=== PATIENT | male | born 1945 | race Caucasian/White ===

== ENCOUNTER 2017-07-27 09:06 | Emergency (ER) | payer OTHER ==
--- OUTSIDE RECORDS SUMMARY | 2017-07-27 09:08 | XMS REPORT ---
:1945 [facility] Address [address] [place] [address] [address] [place] [address] Care Team Providers Name Role Phone ANDI LIZAMA Unavailable Unavailable Problems This patient has no known problems. Allergies, Adverse Reactions, Alerts This patient has no known allergies or adverse reactions. Medications This patient has no known medications. Results Test Description Test Time Test Comments Text Results Atomic Results Result Comments TISSUE EXAM 2016-09-08 18:11:00 Test Item Value Reference Range Comments LAB AP CPT CODE (BEAKER) (test kepr=0944) [id number] 11:20:00 Test Item Value Reference Range Comments HEMOGLOBIN (BEAKER) (test nxdf=795) 15.2 GM/DL 13.0-16.8 [id number] 11:16:00 Test Item Value Reference Range Comments SODIUM (BEAKER) (test vutn=144) 139 meq/L 136-145 POTASSIUM (BEAKER) (test vhom=150) 4.3 meq/L 3.5-5.1 CHLORIDE (BEAKER) (test bfav=208) 108 meq/L 98-107 CO2 (BEAKER) (test grhr=231) 23 meq/L 22-29 [id number] 11:16:00 Test Item Value Reference Range Comments GLUCOSE RANDOM (BEAKER) (test kqyo=609) 89 mg/dL 70-105 Effective 03/17/2014: Reference Range Change-Adult onlyNew: 70-105 Previous : 70-110BUN AND [id number] 11:16:00 Test Item Value Reference Range Comments BLOOD UREA NITROGEN 16 mg/dL 7-21 (BEAKER) (test ehjw=013) CREATININE (BEAKER) (test 1.20 mg/dL 0.57-1.25 ocgz=153) EGFR (BEAKER) (test 60 mL/min/1.73 sq m ESTIMATED GFR IS NOT gjdl=2407) ACCURATE CREATININE CLEARANCE IN PREDICTING GLOMERULAR FILTRATION RATE. ESTIMATED GFR IS NOT APPLICABLE FOR DIALYSIS PATIENTS.
--- OUTSIDE RECORDS SUMMARY | 2017-07-27 09:08 | XMS REPORT | Clinical Summary ---
:1945 Author Organization [facility] Address [address] [place] [address] Phone Care Team Providers Name Role Phone Unavailable Primary Care Provider Unavailable Allergies Active Allergy Reactions Severity Noted Date Comments Erythromycin Other (See Comments) 05/21/2014 Stomach cramps Current Medications Prescription Sig. Disp. Refills Start Date End Date Status aspirin 81 MG EC Take 81 mg by Active tablet mouth daily. mometasone (NASONEX) 2 sprays by Active 50 mcg/actuation Nasal route nasal spray daily. glucosamine-chondroit Take 2 tablets Active in 500-400 mg tablet by mouth daily . fexofenadine Take 180 mg by Active (GRACIE) 180 MG mouth daily. tablet prasugrel (EFFIENT) Take 10 mg by Active 10 mg Tab tablet mouth every other day. atorvastatin Take 40 mg by Active (LIPITOR) 40 MG mouth daily. tablet omeprazole (PRILOSEC) Take 20 mg by Active 20 MG capsule mouth daily. B-complex with Take 2 tablets Active vitamin C tablet by mouth daily. cholecalciferol, Take 5,000 Units Active vitamin D3, 5,000 by mouth daily. unit Tab HYDROcodone-acetamino Take 1-2 tablets 30 tablet 0 09/06/2016 09/16/2016 phen (NORCO 5-325) by mouth every 4 5-325 mg per tablet (four) hours as needed for Pain for up to 10 days. Max Daily Amount: 12 tablets Active Problems Problem Noted Date Ganglion cyst of foot 09/06/2016 Ganglion cyst of right foot 09/06/2016 Biceps tendonitis 10/28/2015 Rotator cuff tear, right 10/28/2015 Encounters Date Type Specialty Care Team Description 09/06/2016 Hospital Encounter Usman Cain Ganglion cyst of [place] right foot (Primary Dx) 09/06/2016 Surgery Usman Cain BIOPSY/EXCISION,DUSTIN Goff MD TISSUE EXTREMITY LOWER 09/05/2016 Anesthesia Event Dana Rivas MD 09/05/2016 Orders Only Usman Cain MD 07/28/2016 Hospital Encounter Pre-Admission Usman Cain Biceps tendonitis , Testing [place] unspecified laterality 07/28/2016 Orders Only General Internal Medicine after 07/26/2016 Social History Tobacco Use Types Packs/Day Years Used Date Never Smoker Smokeless Tobacco: Never Used Alcohol Use Drinks/Week oz/Week Comments No Sex Assigned at Date Recorded Not on file Last Filed Vital Signs Vital Sign Reading Time Taken Blood Pressure 149/76 09/06/2016 3:20 PM CDT Pulse 58 09/06/2016 3:20 PM CDT Temperature 36.7 C (98.1 F) 09/06/2016 3:20 PM CDT Respiratory Rate 30 09/06/2016 3:20 PM CDT Oxygen Saturation 96% 09/06/2016 3:20 PM CDT Inhaled Oxygen Concentration - - Weight 96.8 kg (213 lb 6.4 oz) 09/06/2016 9:10 AM CDT Height 179.1 cm (5' 10.5") 09/06/2016 9:10 AM CDT Body Mass Index 30.19 09/06/2016 9:10 AM CDT Plan of Treatment Not on file Implants Implanted Type Area Seed Cleaning Manager Device Expiration Model / Identifier Date Serial / Lot Sut Biocomp Swvlck 4.75x19.1mm [id number] - [id number] [place]/ Right: ARTHREX 07/28/2017 [id number] / Implanted: Qty: 1 on 10/28/2015 by Sebas Son MD Arthros Shoulder / copy [id number] [place] Healix [id number] [id number] - [id number] [place]/ Right: J 07/28/2018 [id number] / Implanted: Qty: 2 on 10/28/2015 by Sebas Son MD Arthros Shoulder &J:ETHICON: / copy MITEK PRDT [id number] Healix Advance [place] Right: DEPUY MITEK 02/27/2018 / Implanted: Qty: 1 on 10/28/2015 by Sebas Son MD Shoulder / [id number] Snapshot Fixation System Right: [employer] 10/07/2020 / Implanted: Qty: 1 on 10/28/2015 by Sebas Son MD [facility] / [id number] Rotation Medical Tendon Nathaniel Right: 08/29/2016 / Implanted: Qty: 1 on 10/28/2015 by Sebas Son MD Shoulder / [id number] Rotation Medical Bone Staple Drivers With Nathaniel Kit 08/05/2016 / Implanted: Qty: 1 on 10/28/2015 by Sebas Son MD / [id number] Rotation Nedical Reconstituted Collagen Scaffold Medium Right: 2016 [id number] / Implanted: Qty: 1 on 10/28/2015 by Sebas Son MD Shoulder / Procedures Procedure Name Priority Date/Time Associated Diagnosis Comments BIOPSY/EXCISION,SOFT 09/06/2016 11:15 AM Ganglion cyst of foot TISSUE EXTREMITY LOWER CDT Case Notes Fantasma palma Special Needs (FOOT TRAY) after 07/26/2016 Results Tissue Exam (09/06/2016 1:11 PM) Component Value Ref Range Case Report Surgical Pathology Report Case: [id number] Authorizing Provider:Usman Cain MD Ordering Provider: Usman Cain MD Ordering Location: [facility] Collected: 09/06/2016 1311 SERVICES Pathologist: Peri Granados MDReceived: 09/06/2016 1627 Specimen:Ganglion Cyst, RIGHT FOOT GANGLION CYST DIAGNOSIS RIGHT FOOT, DORSAL, SOFT TISSUE, EXCISION OF LESION - GANGLION CYST Signing Pathologist Direct Phone Line: [phone] CPT Code(s) 85157 CLINICAL HISTORY Right dorsal foot ganglion cyst SPECIMEN SOURCE Right foot ganglion cyst GROSS DESCRIPTION The specimen is received in a formalin-filled container and labeled with the patient's information and labeled "right foot ganglion cyst" and consists of an intact cho-pink cyst measuring 3 x 1.5 x 1 cm. The surface is smooth, intact. The cyst is unilocular, filled with yellow thick material. Concrete Boom Pump Operator sections are submitted A1. CG/pl MICROSCOPIC DESCRIPTION The right foot sample shows a fibrous walled cyst with some intracystic myxoid/mucoid material, consistent with a ganglion cyst. Some surrounding muscle shows atrophic changes. There is no inflammation or atypia. Specimen Performing Laboratory Tissue - Ganglion Cyst [address] [address] ECG 12 lead (07/28/2016 10:20 AM) Specimen Performing Laboratory GE MUSE Narrative Ventricular Rate 57 BPM Atrial Rate 57 BPM P-R Interval 178 ms QRS Duration 100 ms Q-T Interval 444 ms QTC Calculation(Bazett) 432 ms P Lamont 13 degrees R Lamont 13 degrees T Lamont 30 degrees Sinus bradycardia Otherwise normal ECG No previous ECGs available Confirmed by MD MANCILLA JORGE ([id number]) on 07/28/2016 2:52:37 PM Procedure Note Interface, External Ris In - 07/28/2016 2:52 PM CDT Ventricular Rate 57 BPM Atrial Rate 57 BPM P-R Interval 178 ms QRS Duration 100 ms Q-T Interval 444 ms QTC Calculation(Bazett) 432 ms P Lamont 13 degrees R Lamont 13 degrees T Lamont 30 degrees Sinus bradycardia Otherwise normal ECG No previous ECGs available Confirmed by MD MANCILLA JORGE ([id number]) on 07/28/2016 2:52:37 PM BUN and Creatinine (07/28/2016 10:17 AM) Component Value Ref Range BUN 16 7 - 21 mg/dL Creatinine 1.20 0.57 - 1.25 mg/dL EGFR 60Comment: ESTIMATED GFR IS NOT ACCURATE mL/min/1.73 sq m CREATININE CLEARANCE IN PREDICTING GLOMERULAR FILTRATION RATE. ESTIMATED GFR IS NOT APPLICABLE FOR DIALYSIS PATIENTS. Specimen Performing Laboratory Blood [address] [address] Hemoglobin (07/28/2016 10:17 AM) Component Value Ref Range Hemoglobin 15.2 13.0 - 16.8 GM/DL Specimen Performing Laboratory Blood [facility] [address] Glucose (07/28/2016 10:17 AM) Component Value Ref Range Glucose 89 70 - 105 mg/dL Specimen Performing Laboratory Blood [address] [address] Narrative Effective 03/17/2014: Reference Range Change-Adult only New: 70-105 Previous: 70-110 Electrolytes (07/28/2016 10:17 AM) Component Value Ref Range Sodium 139 136 - 145 meq/L Potassium 4.3 3.5 - 5.1 meq/L Chloride 108 (H) 98 - 107 meq/L CO2 23 22 - 29 meq/L Specimen Performing Laboratory Blood [address] [address] after 07/26/2016
[2017-07-27 10:52] LABS: Urine Blood NEGATIVE (NEG); Urine Glucose NEGATIVE (NEG); Urine Protein NEGATIVE (NEG); Urine Specific Gravity 1.015 (1.005-1.030)
[2017-07-27 10:56] LABS: Absolute Lymphocytes (CBC) 1.5 K/uL (0.7-4.9); Absolute Monocytes 0.7 K/uL (0.1-1.3); Absolute Neutrophil 6.9 K/uL (1.8-8.0); Basophils % 0.6 % (0-1.3); Eosinophils % 0.7 % (0-4.4); Hematocrit 44.5 % (39.6-49.0); Lymphocytes % 15.9 % (15.3-44.8); MCH 30.2 pg (27.0-35.0); MCV 90.8 fL (80-100); MPV 8.9 fL (7.6-11.3); Monocytes % 7.6 % (3.3-12.3)
[2017-07-27 11:10] LABS: Potassium 3.6 mEq/L (3.6-5.0)
[2017-07-27 11:16] LABS: Albumin 3.9 g/dL (3.2-5.5); Bilirubin Direct 0.3 mg/dL (0-0.2); Bilirubin Total 1.5 mg/dL (0.3-1.2); Protein, Total 6.8 g/dL (6.0-8.3)
[2017-07-27 12:04] LABS: Urine Bacteria <20 /HPF (NONE SEEN); Urine Culture Reflex Order NOT NEEDED; Urine RBC <5 /HPF (NONE SEEN)
--- NOTE | 2017-07-27 12:04 | RAD REPORT ---
EXAM DESCRIPTION: CT - Abdomen Pelvis W Contrast - 07/27/2017 11:45 am CLINICAL HISTORY: Abdominal pain, diarrhea, prior prostatectomy COMPARISON: None. TECHNIQUE: Biphasic, helical CT imaging of the abdomen and pelvis was performed following 100 ml non -ionic IV contrast. Oral contrast was given. All CT scans are performed using dose optimization technique as appropriate and may include automated exposure control or mA/KV adjustment according to patient size. FINDINGS: No suspicious findings in the lung bases. The liver, spleen, and pancreas show no suspicious findings. Several small liver cysts are identified . These are not regarded as suspicious. Gallbladder and biliary tree are normal. Symmetric renal function is seen with no hydronephrosis or suspicious renal mass. Small right renal c yst is present. No urinary bladder abnormality seen. Prostate gland is absent. No mass, lymphadenopat hy or edema along the pelvic floor fatty tissues. No gastric dilatation or gastric wall thickening. No acute small bowel finding. No appendicitis. Prox imal sigmoid shows subtle wall thickening and a trace amount of stranding in the adjacent fat. Patien t has a mild diverticulosis pattern. Mid and distal sigmoid is redundant extending into the right low er quadrant. No free air, free fluid or pneumatosis. No other area of inflammatory stranding. No her lynn, mass or bulky lymphadenopathy. No adrenal abnormality. No suspicious bony findings. IMPRESSION: Suspected minimal colitis or diverticulitis in the proximal sigmoid colon left lower miguelina drant of the abdomen. No free air, abscess or other surgically emergent finding.
--- NOTE | 2017-07-27 12:28 | ER ---
Nurse's Notes [facility] Name: Myron Napoles Age: 71 yrs Sex: Male : 1945 Arrival Date: 07/27/2017 Time: 09:09 Bed 6 Private MD: Diagnosis: Abdominal and pelvic pain;Diverticulitis Presentation: 07/27 09:27 Presenting complaint: Patient states: soft stool and abd discomfort x "a few weeks", ss but is not getting much worse. Transition of care: patient was not received from another setting of care. Onset of symptoms is unknown. Care prior to arrival: None. 09:27 Method Of Arrival: Ambulatory ss 09:27 Acuity: DELL 3 ss Historical: - Allergies: : Erythromycin; ss - Immunization history:: Adult Immunizations up to date. - Social history:: Smoking status: Patient/guardian denies using tobacco. Screenin:16 Abuse screen: Denies threats or abuse. Nutritional screening: No deficits noted. la1 Tuberculosis screening: No symptoms or risk factors identified. Fall Risk None identified. Assessment: 10:15 General: Appears comfortable, well groomed, well developed, well nourished, Behavior is la1 calm, cooperative. Pain: Complains of pain in right lower quadrant and left lower quadrant. Neuro: Level of Consciousness is awake, alert, obeys commands, Oriented to person, place, time, situation. Cardiovascular: Capillary refill < 3 seconds Patient's skin is warm and dry. Respiratory: Airway is patent Respiratory effort is even, unlabored, Respiratory pattern is regular, symmetrical, Breath sounds are clear bilaterally. GI: Abdomen is round non-distended, Bowel sounds present X 4 quads. Abd is soft X 4 quads Abdomen is tender to palpation in left upper quadrant and left lower quadrant. : No signs and/or symptoms were reported regarding the genitourinary system. 11:55 Reassessment: Patient appears in no apparent distress at this time. No changes from la1 previously documented assessment. Patient and/or family updated on plan of care and expected duration. Pain level reassessed. Patient is alert, oriented x 3, equal unlabored respirations, skin warm/dry/pink. Vital Signs: 09:29 BP 151 / 83; Pulse 66; Resp 16; Temp 97.7(O); Pulse Ox 99% on R/A; Weight 95.25 kg; Height 5 ft. 10 in. (177.80 cm); Pain 6/10; 12:40 BP 145 / 74; Pulse 67; Resp 16; Temp 98.1; Pulse Ox 100% on R/A; la1 09:29 Body Mass Index 30.13 (95.25 kg, 177.80 cm) ED Course: 09:09 Patient arrived in ED. mr 09:29 Triage completed. 09:29 Arm band placed on right wrist. ss 10:08 César Julio MD is Attending Physician. kdr 10:12 Stephon Ibarra, BRII is Primary Nurse. la1 10:16 Placed in gown. Bed in low position. Call light in reach. la1 10:40 No provider procedures requiring assistance completed. Inserted saline lock: 20 gauge la1 in left antecubital area, using aseptic technique. Blood collected. 11:45 CT Abd/Pelvis - W/Contrast: IV ONLY In Process Unspecified. EDMS 12:40 IV discontinued, intact, bleeding controlled, No redness/swelling at site. Pressure la1 dressing applied. Administered Medications: 12:39 Drug: Flagyl 500 mg Route: PO; la1 12:39 Drug: Cipro 500 mg Route: PO; la1 Outcome: 12:27 Discharge ordered by . kdr 12:39 Discharged to home ambulatory. la1 12:39 Condition: stable 12:39 Discharge instructions given to patient, Instructed on discharge instructions, follow up and referral plans. medication usage, Demonstrated understanding of instructions, follow-up care, medications, Prescriptions given X 5 12:45 Patient left the ED. la1 Signatures: Dispatcher [employer] EDNM César Julio MD MD kdr Rivera, Maria Faina Tolentino, BRII TERESA Stephon Ibarra, BRII RN la1
--- NOTE | 2017-07-27 12:28 | EDPHYS ---
Physician Documentation [facility] Name: Myron Napoles Age: 71 yrs Sex: Male : 1945 Arrival Date: 07/27/2017 Time: 09:09 Bed 6 Private MD: ED Physician César Julio Historical: - Allergies: 07/27 09:29 Erythromycin; ss - Immunization history:: Adult Immunizations up to date. - Social history:: Smoking status: Patient/guardian denies using tobacco. Vital Signs: 09:29 BP 151 / 83; Pulse 66; Resp 16; Temp 97.7(O); Pulse Ox 99% on R/A; Weight 95.25 kg; ss Height 5 ft. 10 in. (177.80 cm); Pain 6/10; 12:40 BP 145 / 74; Pulse 67; Resp 16; Temp 98.1; Pulse Ox 100% on R/A; la1 09:29 Body Mass Index 30.13 (95.25 kg, 177.80 cm) ss MDM: 12:27 Patient medically screened. kdr 07/27 10:35 Order name: Amylase, Serum; Complete Time: 11:54 07/27 10:35 Order name: Basic Metabolic Panel; Complete Time: 11:54 07/27 10:35 Order name: CBC with Diff; Complete Time: 11:54 07/27 10:35 Order name: Creatinine for Radiology; Complete Time: 12:25 07/27 10:35 Order name: Hepatic Function; Complete Time: 11:54 07/27 10:35 Order name: Lipase; Complete Time: 11:54 07/27 10:35 Order name: Urine Microscopic Only; Complete Time: 12:25 07/27 10:35 Order name: IV Saline Lock; Complete Time: 10:36 la07/27 10:35 Order name: Labs collected and sent; Complete Time: 10:36 07/27 10:35 Order name: Urine Dipstick-Ancillary (obtain specimen); Complete Time: 10:54 07/27 10:35 Order name: CT Abd/Pelvis - W/Contrast: IV ONLY; Complete Time: 12:25 07/27 10:50 Order name: Urine Dipstick--Ancillary (enter results); Complete Time: 11:54 ag Administered Medications: 12:39 Drug: Flagyl 500 mg Route: PO; la1 12:39 Drug: Cipro 500 mg Route: PO; la1 Disposition: 07/27/17 12:27 Discharged to Home. Impression: Abdominal and pelvic pain, Diverticulitis. - Condition is Stable. - Discharge Instructions: Diverticulitis, [id number], Abdominal Pain, Adult, [id number]. - Prescriptions for Bentyl 20 mg Oral Tablet - take 1 tablet by ORAL route every 6 hours As needed; 20 tablet. Cipro 500 mg Oral Tablet - take 1 tablet by ORAL route every 12 hours for 10 days; 20 tablet. Flagyl 500 mg Oral Tablet - take 1 tablet by ORAL route every 6 hours for 10 days; 40 tablet. Pepcid 20 mg Oral Tablet - take 1 tablet by ORAL route every 12 hours for 5 days; 20 tablet. Zofran 4 mg Oral Tablet - take 1 tablet by ORAL route every 12 hours As needed; 15 tablet. - Medication Reconciliation Form, Thank You Letter, Antibiotic Education, Prescription Opioid Use form. - Follow up: Private Physician; When: 2 - 3 days; Reason: If symptoms return, Further diagnostic work-up, Recheck today's complaints, Continuance of care, Re-evaluation by your physician. - Problem is new. - Symptoms have improved. Addendum: 08/06/2017 09:42 Addendum: CC: Abdominal pain for a few weeks HPI: The patient states that he has had k dr persistent and slightly worsening abdominal pain for the past few weeks. He has not had any blood in his stool. He has had minimal nausea and no vomiting. He has not had anything like this before. . Addendum: ROS: Const: No fever, chills or weight loss Eyes: no visual changes or c/o, Neck: no pain or injury, CV: no CP or palpitations, Resp: no SOB, cough or congestion, Abd: no vomiting. He has had mild diffuse abdominal pain and soft stools Back: no pain or injury, : no pain or bleeding, MS/Ext: no pain, injury, swelling, tingling, Skin: no lacerations, pain, injury, skin turgor good, Neuro: CN grossly intact and no other deficits, Psych: Appropriate for age, Allergy/Immunology: no rashes or other s/s, Endo: no evidence of polyuria, polydipsia, temperature control or other s/s . Addendum: Exam: Const: WDWN WM in NAD, Head/Face: no injury, pain or deformity, Eyes: PERRLA, ENT: no pain, injury or bleeding, Neck: no pain, injury or deformity, full ROM, Chest/Axilla: No pain, injury or deformity, CV: no rubs, gallops, murmurs, regular rate, Resp: CTAB, regular rate, Abd/GI: soft, mildly tender diffusely, BS present in all quads and normal, Back: no injury or deformity, full ROM, MS/Extremity: no injury or deformity, FROM, distal pulses good and equal, Skin: no rashes, ecchymosis skin turgor good, Neuro: CN grossly intact, no other neuro deficits, Psych: appropriate for age, no SI/HI, no depression . Addendum: MDM (Discharge) All VS and nursing notes reviewed. The patient was counseled on the results and need for follow-up. The patient was discharged in stable condition. They were happy with the care they received and the plan for d/c and follow-up. . Signatures: Dispatcher [employer] EDMS César Julio MD MD [facility] Faina Tolentino RN RN Stephon Ibarra RN RN la1
[2017-07-27] MEDS ORDERED: CIPROFLOXACIN HCL 500 MG TAB ONE (12:51)
[2017-07-27] MEDS ORDERED: metroNIDAZOLE 500 MG TABLET ONE (12:51)
== END 2017-07-27 12:45 | disposition home or self-care (01) ==
LOC: ER 09:06
DX: K57.92 Diverticulitis of intestine, part unspecified, without perforation or abscess without bleeding (principal); Z88.3 Allergy status to other anti-infective agents
CPT/HCPCS: 36415; 74177; 80048; 80076; 82150; 83690; 85025; 99284; Q9967; 81003; 81015

== ENCOUNTER 2021-07-10 11:47 | Emergency (ER) | payer OTHER ==
--- OUTSIDE RECORDS SUMMARY | 2021-07-10 11:57 | XMS REPORT | Continuity of Care Document ---
:1945 [facility] t Address [address] [place] [address] Care Team Providers Name Role Phone Sammy, Walter Primary Care Physician ISMAEL KELLOGG Attending Clinician Unavailable GAMA CANO Attending Clinician Unavailable GMAA CANO Attending Clinician Unavailable Violette PATRICIO Attending Clinician Unavailable Nurse, Pob Immunization Attending Clinician Unavailable Dagoberto Sanz DO Attending Clinician Yun BRISENO Attending Clinician Unavailable OG LEE Attending Clinician Unavailable Vls-Lab Attending Clinician Unavailable Halina MEYERS Attending Clinician Robbin Redding MD Attending Clinician [phone] HALINA Attending Clinician Unavailable MENDOZA Attending Clinician Unavailable Mendoza MEYERS Attending Clinician Doctor Unassigned, Name Attending Clinician Unavailable Vania MEYERS Attending Clinician Flavio HERRERA Attending Clinician FLAVIO Attending Clinician Unavailable Tayler TERESA, A Attending Clinician Unavailable Singer WOODARD Attending Clinician Victorino WOODARD Attending Clinician Thom DURAN Attending Clinician Unavailable Charissa MEYERS, Violette Attending Clinician Elsie MEYERS, Brian Attending Clinician Gama Cano MD Attending Clinician CLIVE Attending Clinician Unavailable JAYE Attending Clinician Unavailable VANIA Attending Clinician Unavailable Ismael Kellogg MD Attending Clinician Kendall WINSTON Attending Clinician Garrick MEYERS Attending Clinician Nurse, General Surgery Attending Clinician Unavailable TERESSA SMITH Attending Clinician Unavailable ANDI LIZAMA Attending Clinician Unavailable ISMAEL KELLOGG Admitting Clinician Unavailable Victorino WOODARD Admitting Clinician Ismael Kellogg MD Admitting Clinician TERESSA SMITH Admitting Clinician Unavailable ANDI LIZAMA Admitting Clinician Unavailable Payers Payer Name Policy Type Policy Number Effective Date Expiration Date S aamir AET MEDICARE [id number] 2019 ADV 00:00:00 MEDICARE PLAN PPO [id number] - AET MEDICARE PART B - [id number] 2013 MEDICARE 00:00:00 AETNA MEDICARE [id number] 2013 HMO POS PPO 00:00:00 Problems Condition Condition Condition Status Onset Resolution Last Treating Co mments Source Name Details Category Date Date Treatment Clinician Date M16.12 - Diagnosis Active 2020-11-26 M emoria UNILATERAL 6-10 15:26:00 l PRIMARY M16.12 - 00:00: Chloe nn OSTEOARTHR UNILATERAL 00 IT PRIMARY OSTEOARTHR IT Active 1 [facility] Chest pain Chest pain Disease Active U nivers 4-05 ity of 00:00: [place] 00 Medical Branch Coronary Coronary Disease Active Unive rs artery artery 4-05 ity of disease disease 00:00: [place] involving involving 00 Medi [place] [facility] coronary coronary artery of artery of [place] heart heart without without angina angina pectoris pectoris Essential Essential Disease Active Uni vers hypertensi hypertensi 4-05 it y of on on 00:00: [place] 00 Medical Branch Other Other Disease Active Univers hyperlipid hyperlipid 4-05 it y of emia emia 00:00: [place] [facility] G89.4 - Diagnosis Active 2020-05-07 Me moria CHRONIC 1-05 15:25:00 l PAIN G89.4 - 00:01: [place] SYNDROME CHRONIC 00 M54.16 - R PAIN SYNDROME M54.16 - R Active 05/04/2020 [facility] [place] M54.16 - Diagnosis Active 2019-11-26 M emoria "RADICULOP 7- 12:17:00 l ATHY, M54.16 - 00:01: Enio n LUMBAR "RADICULOP 00 REGION" ATHY, LUMBAR REGION" Active 11/17/2019 [facility] [place] Ganglion Ganglion Disease Active [facility] r cyst of cyst of 3-13 College right foot right foot 00:00: of 00 Medicin e Other Other Disease Active [facility] testicular testicular 1-17 Co llege hypofuncti hypofuncti 00:00: of on on 00 Medicin e Trigger Trigger Disease Active [facility] finger of finger of 8-05 [facility] left thumb left thumb 00:00: of 00 Medicin e Rotator Rotator Disease Active [facility] cuff tear cuff tear 1-19 [facility] 00:00: of 00 Medicin e Rotator Rotator Disease Active [facility] cuff tear cuff tear 1-19 [facility] 00:00: of 00 Medicin e Cervical Cervical Disease Active [facility] r spine spine 8- College arthritis arthritis 00:00: of 00 Medicin e Thumb Thumb Disease Active [facility] weakness weakness 8- Colleg e 00:00: of 00 Medicin e Biceps Biceps Disease Active [facility] tendonitis tendonitis 8- Co llege 00:00: of 00 Medicin e Shoulder Shoulder Disease Active [facility] r pain pain 8-28 College 00:00: of 00 Medicin e Ganglion Ganglion Disease Active [facility] r cyst cyst 1-13 College 00:00: of 00 Medicin e Allergic Allergic Disease Active [facility] rhinitis, rhinitis, 7-03 [facility] cause cause 00:00: of unspecifie unspecifie 00 Me dicin d d e Epistaxis Epistaxis Disease Active [facility] 7-03 College 00:00: of 00 Medicin e Encounter Encounter Disease Active [facility] for for 6-14 College long-term long-term 00:00: of (current) (current) 00 Medi freda use of use of e other other medication medication s s Dermatophy Dermatophy Disease Active [facility] tosis of tosis of 09-27 Colleg e nail nail 00:00: of 00 Medicin e Personal Personal Disease Active 2011-04 [facility] history of history of -30 Co llege other other 00:00: of malignant malignant 00 Medi freda neoplasm neoplasm e of skin of skin 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 [facility] neoplasm neoplasm 05-21 Colleg e of skin of of skin of 00:00: of trunk, trunk, 00 Medicin except except e scrotum scrotum Actinic Actinic Disease Active 2010-04 [facility] keratosis keratosis 05-21 [facility] 00:00: of 00 Medicin e Prostate Prostate Disease Active 2010-04 [facility] r cancer cancer 0-07 [place] (HCCode) (HCCode) 00:00: of 00 Medicin e Erectile Erectile Disease Active 2010-04 [facility] dysfunctio dysfunctio 0-07 Co llege n n 00:00: of 00 Medicin e Erectile Erectile Disease Active 2010-04 [facility] r dysfunctio dysfunctio 0-07 Co llege n n 00:00: of 00 Medicin e Osteoarthr Problem Active 2020-11-10 M emoria itis 22:17:18 l (disorder) Enio n Osteoarthr itis (disorder) Active Problem 11/10/2020 [facility] Coronary Problem Active 2020-11-10 Mem oria arterioscl 22:17:18 l erosis Coronary Enio n (disorder) arterioscl erosis (disorder) Active Problem 11/10/2020 [facility] Hypertensi Problem Active 2020-11-10 M emoria ve 22:17:18 l disorder, Juve systemic Hypertensi arterial ve (disorder) disorder, systemic arterial (disorder) Active Problem 11/10/2020 [facility] Allergies, Adverse Reactions, Alerts Allergy Allergy Status Severity Reaction(s) Onset Inactive Treating Comm ents Source Name Type Date Date Clinician ERYTHROM Allergy Active Other [facility] Erythrom Propensi Active Other (See Stomach [facility] ycin ty to Comments) 05-21 [facility] adverse 00:00: of reaction 00 Medicin s to e drug Erythrom Propensi Active [facility] ycin ty to 11-19 [facility] Base adverse 00:00: of reaction 00 Medicin s to e drug Erythrom Propensi Active [facility] Univer s ycin ty to 11-19 ity of Base adverse 00:00: [place] reaction 00 Medical s Branch ERYTHROM DRUG Active [facility] YCIN INGREDI 11-19 ity of BASE 00:00: [place] 00 Medical Branch erythrom erythrom Active Memori a ycin ycin l [place] NO KNOWN Drug Active Univers ALLERGIE Class ity of [facility] Medical Branch Social History Social Habit Start Date Stop Date Quantity Comments Source History [facility] University o f Alcohol Comment [place] [facility] Exposure to Not sure University of SARS-CoV-2 [place] [facility] (event) Branch History [facility] ge of Alcohol Frequency Medicin e History [facility] ge of Alcohol Std Medicine Drinks History [facility] ge of Alcohol Binge Medicine Alcohol intake 2021-05-27 2021-05-27 Current drinker [facility] of 00:00:00 00:00:00 of alcohol Medicine (finding) Social History 2020-10-29 2020-10-29 [facility] flynn 16:31:09 16:31:09 Tobacco use and 2011-02-03 2011-02-03 Smokeless tobacco [facility] of exposure 00:00:00 00:00:00 non-user Medicine Sex Ass[birth year] [facility] llege of 00:00:00 00:00:00 Medicine Smoking Status Start Date Stop Date Source Unknown if ever smoked [facility] Medical [place] Never smoked tobacco [facility] of Medicine Medications Ordered Filled Start Stop Current Ordering Indication Dosage Frequency Signature Comments Components Source Medication Medication Date Date Medication? Clinician (SIG) Name Name solifenacin 2022-0 Yes 10mg Take 1 [facility] (VESICARE) 05-30 Tablet by [facility] 10 MG 00:00: mouth of tablet 00 daily. Medicin e CHONDROITIN Yes 1200mg Take 1,200 [facility] SULFATE OR 1-28 mg by College 09:40: mouth. of 17 Medicin e ramipril Yes 10mg Take 10 mg [facility] (ALTACE) 10 05-27 by mouth [facility] MG capsule 09:40: daily. of 17 Medicin e aspirin EC Yes 81mg Take 81 mg [facility] 81 MG 05-27 by mouth College tablet 09:40: daily. of 17 Medicin e omeprazole Yes 20mg Take 20 mg [facility] (PRILOSEC) 05-27 by mouth Colle ge 20 MG 09:40: daily. of capsule 17 Medicin e fexofenadin Yes as needed. [facility] e (GRACIE) 05-27 College 180 MG 09:40: of tablet 17 Medicin e fexofenadin 2021- No 180mg Take 180 [facility] e (GRACIE) 05-27 mg by Colleg e 180 MG 09:40: 00:00 mouth as of tablet 02 :00 needed for Medicin Other. e atorvastati 2021- No 40mg Take 40 mg [facility] n (LIPITOR) 05-27 by mouth. Co llege 40 MG 09:39: 00:00 of tablet 53 :00 Medicin e Aspirin 81 No Notes: Do Me moria MG Enteric 7-13 not crush l Coated 14:01: or chew. [place] Tablet 00 (Same As: Ecotrin) cefadroxil Yes 500 mg = 1 M emoria 500 mg oral 7-13 cap, PO, l capsule 14:00: BID, [place] 00 start medication on 11/09/20 eRx sent to pharmacy [id number] [address] [place] [address] Primary: TE: , X 2 day, # 4 cap, 0 Refill(s), called to pharmacy Aspirin 81 Yes 81 mg = 1 Me moria MG Enteric 7-13 tab, PO, l Coated 14:00: BID, Juve Tablet 00 start medication on 11/09/20 eRx sent to pharmacy [id number] [place] [address] Primary: TE: , # 60 tab, 0 Refill(s), called to pharmacy meloxicam Yes 15 mg = 1 Mem oria 15 mg oral 7-13 tab, PO, l tablet 14:00: Daily, Enio n 00 start medication on 11/09/20 eRx sent to pharmacy [id number] [place] [address] Primary: TE: , # 30 tab, 0 Refill(s), called to pharmacy meloxicam No Notes: Memori a 7-13 (Same as: l 14:00: Mobic) Ju[place] 00 Acetaminoph Yes 1 tab, PO, Memoria en 325 MG / 7-13 Q6H, PRN l Hydrocodone 02:00: Pain, [place] Bitartrate 00 start 10 MG Oral medication Tablet on 11/08/20 eRx sent to pharmacy [id number] [place] [address] [place] [address] Primary: TE: , # 30 tab, 0 Refill(s), called to pharmacy Ondansetron Yes 4 mg = 1 Me moria 4 MG 7-13 tab, PO, l Disintegrat 02:00: Q8H, PRN He rmann ing Tablet 00 Nausea & Vomiting, allow tablet to dissolve on tongue start medication on 11/08/20 eRx sent to pharmacy [facility][id number] [facility] [address] [place] [address] Primary: TE: , # 12 t... pregabalin Yes 75 mg = 1 Me moria 75 MG Oral 7-13 cap, PO, l Capsule 02:00: Bedtime, Enio n [Lyrica] 00 for nerve pain start medication on 11/08/20 eRx sent to pharmacy [facility] #[id number] [place] [address] Primary: TE: , # 30 cap, 0 Refill(s), called to pharmacy Mupirocin No 1 appl, Memor ia 7-13 Route: l 02:00: NASAL, Juve 00 Q12H, Drug form: OINT, Start date: 11/08/20 21:00:00 CDT, Duration: 30 day, Stop date: 12/08/20 9:00:00 CDT, 0 Docusate No Notes: Memoria Sodium 100 7-13 (Same as: l MG Oral 02:00: Colace) [place] Capsule 00 (Do Not [Colace] Crush) gabapentin No Notes: Memor ia 300 MG Oral 7-13 (Same as: l Capsule 02:00: Neurontin) Herm cynthia 00 Saline No Notes: Memoria Flush 0.9% - (Same as: l 02:00: BD Juve 00 Posiflush) Cefazolin No Notes: Memori a 7-12 (Same As: l 17:00: AncefBeverlyJuve 00 Kefzol) MEDICATION WASTE Product Size: 1000 mg Product Wasted: ___ mg ondansetron No Route: IV, Memoria (ANES) 11-08 Drug form: l 15:04: INJ, ONCE, Juve 00 Stop date: 11/08/20 10:04:00 CDT Lactated No 1,000 mL, Chet chance Ringers IV 11-08 Rate: 125 l 1,000 mL 14:23: ml/hr, Infuse over: 8 hr, Route: IV, Dosing Weight 84.091 kg, Total Volume: 1,000, Start date: 11/08/20 9:23:00 CDT, Duration: 30 day, Stop date: 12/08/20 9:22:00 CDT, BSA: 2.05 m2, 0 Acetaminoph No Notes: Do M emoria en 325 MG / - not exceed l Hydrocodone 14:23: 4gm/day of Bitartrate acetaminop 10 MG Oral hen. Tablet (Same as: [place] 325/10) Zofran ODT No Notes: Memor ia 7-12 (Same as: l 14:23: Zofran ODT) Dulcolax No Notes: Memoria Laxative 12 (Same As: l 14:23: Dulcolax, Correctol) (Do Not Crush) "Do Not Crush" Morphine No Notes: Memoria 7-12 (Same l 14:23: as:MORPhin e Sulfate) Periactin No Notes: Memori a 12 (Same As: l 14:23: Periactin) [place] 00 Tums No Notes: Memoria 12 (Same As: l 14:23: Tums) Calcium Carbonate 500 mg = 200 mg elemental calcium Dose = mg calcium carbonate ( mg elemental calcium) Saline No Notes: Memoria Flush 0.9% 11-08 (Same as: l 14:23: BD Posiflush) ePHEDrine No Route: IV, Me moria (ANES) 11-08 Drug form: l 13:51: INJ, ONCE, Stop date: 11/08/20 8:51:00 CDT famotidine No Route: IV, M emoria (ANES) 11-08 Drug form: l 13:51: INJ, ONCE, Stop date: 11/08/20 8:51:00 CDT lidocaine No Route: IV, Me moria (ANES) 11-08 Drug form: l 13:41: INJ, ONCE, Stop date: 11/08/20 8:41:00 CDT fentaNYL No Route: IV, Mem oria (ANES) 11-08 Drug form: l 13:41: INJ, ONCE, Stop date: 11/08/20 8:41:00 CDT propofol 2021-0 No Route: IV, Mem oria (ANES) 11-08 Drug form: l 13:41: INJ, ONCE, Stop date: 11/08/20 8:41:00 CDT tranexamic 0 No Route: IV, M emoria acid (ANES) 11-08 Drug form: l 13:41: INJ, ONCE, Stop date: 11/08/20 8:41:00 CDT bupivacaine 0 No Route: Chet chance (ANES) 11-08 INTRATHECA l 13:26: L, Drug Form: INJ, ONCE, Stop date: 11/08/20 8:26:00 CDT ceFAZolin No Route: IV, Me moria (ANES) 11-08 Drug form: l 13:21: INJ, ONCE, Stop date: 11/08/20 8:21:00 CDT Diphenhydra 2020-0 No 12.5 mg, Me moria mine 11-08 Route: l 13:18: IVP, Drug form: INJ, Q6H, Dosing Weight 84.091, kg, PRN Itching, Start date: 11/08/20 8:18:00 CDT, Duration: 30 day, Stop date: 12/08/20 8:17:00 CDT Racepinephr 2020-0 No 0.5 mL, Mem oria ine 11-08 Route: l 13:18: NEB, Dosing Weight 84.091, kg, PRN, PRN Shortness of breath, Start date: 11/08/20 8:18:00 CDT, Duration: 30 day, Stop date: 12/08/20 8:17:00 CDT Ondansetron 2020-0 No 4 mg, Memor ia 11-08 Route: l 13:18: IVP, ONCE, Dosing Weight 84.091, kg, PRN Nausea & Vomiting, Start date: 11/08/20 8:18:00 CDT Dexamethaso 2020-0 No 4 mg, Memor ia ne 11-08 Route: l 13:18: IVP, ONCE, Dosing Weight 84.091, kg, PRN Nausea & Vomiting, Start date: 11/08/20 8:18:00 CDT Sodium 2021-0 No 500 mL, Memoria Chloride 7-12 Infuse l 0.9% 13:18: Over: 20 [place] (Bolus) IV 00 minutes, Route: IV, ONCE, Dosing Weight 84.091 kg, Start date: 11/08/20 8:18:00 CDT, Stop date: 11/08/20 8:18:00 CDT Hydralazine 1-0 No 10 mg, Chet chance 11-08 Route: l 13:18: IVP, [place] 00 Q20Min, Dosing Weight 84.091, kg, PRN Elevated BP, Start date: 11/08/20 8:18:00 CDT, Duration: 2 doses or times, Stop date: Limited # of times Acetaminoph 1-0 No 1,000 mg, M emoria en 11-08 Route: PO, l 13:18: Drug form: Ju[place] 00 TAB, ONCE, Dosing Weight 84.091, kg, PRN Pain Score 1-3, Start date: 11/08/20 8:18:00 CDT Fentanyl 1-0 No 25 Memoria 7-12 microgram, l 13:18: Route: [place] 00 IVP, Q5Min, Dosing Weight 84.091, kg, PRN Pain Score 4-6, Priority: Routine, Start date: 11/08/20 8:18:00 CDT, Duration: 4 doses or times, Stop date: Limited # of times Flumazenil 2020-0 No 0.2 mg, Chet chance - Route: l 13:18: IVP, PRN, Juve 00 Dosing Weight 84.091, kg, PRN Benzodiaze pine Reversal, Initial dose, Start date: 11/08/20 8:18:00 CDT, Duration: 30 day, Stop date: 12/08/20 8:17:00 CDT Naloxone 2021-0 No 0.4 mg, Memori a 7- Route: l 13:18: IVP, [place] 00 Q2MIN, Dosing Weight 84.091, kg, PRN Narcotic Reversal, Start date: 11/08/20 8:18:00 CDT, Duration: 8 doses or times, Stop date: Limited # of times Albuterol 2021-0 No 2.49 mg, Chet chance 0.83 MG/ML 7-12 Route: l Inhalant 13:18: NEB, Juve Solution 00 Q20Min, Dosing Weight 84.091, kg, PRN Wheezing, Start date: 11/08/20 8:18:00 CDT, Duration: 30 day, Stop date: 12/08/20 8:17:00 CDT propofol No Route: IV, Mem oria (ANES) 10 11-08 Drug form: l mg 12:49: INJ, Start [place] date: 11/08/20 7:49:00 CDT, Stop date: 11/08/20 8:49:00 CDT Lactated No Route: IV, Mem oria Ringers 11-08 Total l Injection 12:44: Volume: Chloe nn IV (ANES) 00 1,000, 1000 mL Start date: 11/08/20 7:44:00 CDT, Stop date: 11/08/20 8:44:00 CDT ceFAZolin + No Notes: Chet chance sterile -12 (Same As: l water 20 mL 05:00: Ancef, Herm cynthia Kefzol) MEDICATION WASTE Product Size: 1000 mg Product Wasted: ___ mg Zofran ODT No Notes: Memor ia 7-12 (Same as: l 05:00: Zofran [place] 00 ODT) Celebrex No Notes: Memoria 7-12 NSAID. l 05:00: Please [place] 00 check indication . Not for seizure. (Same As: CeleBREX) Cyklokapron No Notes: Chet chance 7-12 (Same As: l 05:00: Cyklokapro [place] 00 n) Lyrica No Notes: Memoria 7-12 (Same as: l 05:00: Lyrica) [place] Acetaminoph No Notes: Max Memoria en 7-12 acetaminop l 05:00: hen 4000 Ju[place] 00 mg/day (4 gm/day). (Same as: Tylenol Extra Strength) Dexamethaso No Notes: Chet chance ne 7-12 Concentrat l 05:00: ion: 4mg/ml Famotidine No Notes: Memor ia 11-08 (Same as: l 05:00: Pepcid) Fish Oil Yes 1360 mg/ Memor ia oral 10-29 950mg l capsule 16:49: [place] 3, Enio n 00 PO, Daily, # 100 cap, 0 Refill(s) Vitamin B 2 Yes Vitamin B M emoria 10-29 2, 400 mg l 16:44: =, PO, Refill(s) 0 PROCERA Yes PROCERA Memoria Advanced 10-29 Advanced l Brain 16:44: Brain, Ginkgo Biloba,Gin odette, Zinc tab, PO, BID, Refill(s) 0 cephalexin No 500 mg = 1 M emoria 500 mg oral 10-29 cap, PO, l capsule 16:44: TID, # 30 Chloe nn 00 cap, 0 Refill(s) Chondroitin Yes 1,200 mg, M emoria Sulfates 10-29 PO, Daily, l 16:43: 0 Refill(s) Vitamin C Yes 1,000 mg, Mem oria 10-29 PO, Daily, l 16:43: 0 Refill(s) magnesium Yes 143 mg, 0 Mem oria citrate 10-29 Refill(s) l oral tablet 16:43: Enio n 00 Omeprazole Yes 20 mg, PO, M emoria 10-29 Daily, 0 l 16:42: Refill(s) fexofenadin Yes 180 mg = 1 Memoria e 180 mg 10-29 tab, PO, l oral tablet 16:42: Daily, 0 He rm Refill(s) Vitamin B Yes 1 tab, PO, Me moria Complex 10-29 Daily, # l oral tablet 16:42: 100 tab, 0 Ju[place] 00 Refill(s) Vitamin D3 Yes 250 mcg, Mem oria 10-29 PO, Daily, l 16:42: 0 [place] 00 Refill(s) Glucosamine Yes 1,500 mg, M emoria -02 PO, Daily, l 16:42: 0 [place] 00 Refill(s) rosuvastati Yes 10 mg = 1 M emoria n 10 MG 02 cap, PO, l Oral 16:41: Daily, 0 [place] Capsule 00 Refill(s) ramipril 10 Yes 10 mg = 1 M emoria mg oral 02 cap, PO, l capsule 16:41: Daily, # Enio n 00 30 cap, 0 Refill(s) Aspirin No 81 mg, PO, Chet chance 702 Daily, 0 l 16:41: Refill(s) Ju[place] 00 Glucosamine Yes 1,500 mg, [facility] -Chondroit- 10-29 PO, Daily, Co llege Vit C-Mn 00:00: 0 of (GLUCOSAMIN 00 Refill(s) Med icin E 1500 e COMPLEX OR) [place]-3 Yes 1360 mg/ [facility] Fatty Acids 10-29 950mg [place] (FISH OIL 00:00: [place] 3, of OR) 00 PO, Daily, Medicin # 100 cap, e 0 Refill(s) omeprazole 2021- No 20mg 20 mg. [facility] (PRILOSEC) 10-29 [place] 20 MG 00:00: 00:00 of capsule 00 :00 Medicin e Glucosamine 2021- No 1200mg 1,200 mg. [facility] -Chondroiti 10-29 [place] n [id number] 00:00: 00:00 of MG/30ML 00 :00 Medicin LIQD e omeprazole Yes 20mg Take 20 mg U nivers 20 mg 5-20 by mouth ity of capsule 20:33: daily. [address] Zinc 50 mg 0 Yes Take by Uni vers Tab 5-20 mouth ity of 20:33: daily. [address] omeprazole Yes 20mg Take 20 mg U nivers 20 mg 5-20 by mouth ity of capsule 20:33: daily. [address] Zinc 50 mg Yes Take by Uni vers Tab 5-20 mouth ity of 20:33: daily. [address] omeprazole 2020-0 Yes 20mg Take 20 mg U nivers 20 mg 5-20 by mouth ity of capsule 20:33: daily. [address] Zinc 50 mg 2020-0 Yes Take by Uni vers Tab 5-20 mouth ity of 20:33: daily. [address] omeprazole 2020-0 Yes 20mg Take 20 mg U nivers 20 mg 5-20 by mouth ity of capsule 20:33: daily. [address] Zinc 50 mg 2020-0 Yes Take by Uni vers Tab 5-20 mouth ity of 20:33: daily. [address] ibuprofen 2020-0 Yes 200mg Take 200 Uni vers 200 mg 5-20 mg by ity of tablet 20:31: mouth [place] 53 every 6 Medical (six) Branch hours as needed. ibuprofen 2020-0 Yes 200mg Take 200 Uni vers 200 mg 5-20 mg by ity of tablet 20:31: mouth [place] 53 every 6 Medical (six) Branch hours as needed. ibuprofen 2020-0 Yes 200mg Take 200 Uni vers 200 mg 5-20 mg by ity of tablet 20:31: mouth [place] 53 every 6 Medical (six) Branch hours as needed. ibuprofen 2020-0 Yes 200mg Take 200 Uni vers 200 mg 5-20 mg by ity of tablet 20:31: mouth [place] 53 every 6 Medical (six) Branch hours as needed. omeprazole 0 Yes 20mg Take 20 mg U nivers 20 mg 5-20 by mouth ity of capsule 15:33: daily. [address] Zinc 50 mg 2020-0 Yes Take by Uni vers Tab 5-20 mouth ity of 15:33: daily. [address] ibuprofen 2020-0 Yes 200mg Take 200 Uni vers 200 mg 5-20 mg by ity of tablet 15:31: mouth [place] 53 every 6 Medical (six) Branch hours as needed. CHONDROITIN 2020-0 Yes 1200mg Take 1,200 [facility] SULFATE OR 5-04 mg by College 15:54: mouth. of 29 Medicin e fexofenadin 0 Yes 180mg Take 180 [facility] e (GRACIE) 5-04 mg by College 180 MG 15:54: mouth as of tablet 29 needed for Medicin Other. e atorvastati 0 Yes 40mg Take 40 mg [facility] n (LIPITOR) 5-04 by mouth. Col lege 40 MG 15:54: of tablet 29 Medicin e ramipril Yes 10mg Take 10 mg [facility] (ALTACE) 10 5-04 by mouth [facility] MG capsule 15:54: daily. of 29 Medicin e aspirin EC Yes 81mg Take 81 mg [facility] 81 MG 5-04 by mouth College tablet 15:54: daily. of 29 Medicin e omeprazole Yes 20mg Take 20 mg [facility] (PRILOSEC) 5-04 by mouth Colle ge 20 MG 15:54: daily. of capsule 29 Medicin e rosuvastati Yes 10mg Take 10 mg Univers n (CRESTOR) 4-15 by mouth ity of 10 mg 15:08: at [place] tablet 46 bedtime. Medical Branch ramipril 10 Yes 10mg Take 10 mg Univers mg capsule 4-15 by mouth ity o f 15:08: daily. [place] [address] Medical Branch aspirin 81 Yes 81mg Take 81 mg U nivers mg chewable 4-15 by mouth ity of tablet 15:08: daily. [place] [address] Medical Branch docosahexan Yes 1{capsu Take 1 U nivers oic 4-15 le} capsule by ity of acid/epa 15:08: mouth [place] (FISH OIL 46 daily. Medical ORAL) Branch ergocalcife Yes 500mg Take 500 U nivers rol, 4-15 mg by ity of vitamin D2, 15:08: mouth [place] (VITAMIN D 46 daily. Medical ORAL) Branch gluc Yes 2{tbl} Take 2 Univers sainz/chondro 4-15 tablets by ity of sainz A/vit 15:08: mouth. [place] C/Mn 46 Medical (GLUCOSAMIN Branch E 1500 COMPLEX ORAL) chondroitin Yes 2400mg Take 2,400 Univers sulfate A 4-15 mg by ity of sodium 15:08: mouth [place] (CHONDROITI 46 daily. Medica l N SULFATE Branch ORAL) fexofenadin Yes 180mg Take 180 U nivers e 180 mg 4-15 mg by ity of tablet 15:08: mouth [place] 46 daily. Medical Branch ibuprofen 2021-0 Yes 200mg Take 200 Uni vers 200 mg 4-15 mg by ity of tablet 15:08: mouth [place] 46 every 6 Medical (six) Branch hours as needed. vitamin B Yes 2{tbl} Take 2 Univ ers complex vit 4-15 tablets by it y of C no.4 15:08: mouth [place] (SUPER B 46 daily. Medical COMPLEX + C Branch ORAL) rosuvastati Yes 10mg Take 10 mg [facility] n (CRESTOR) 4-15 by mouth ity of 10 mg 15:08: at [place] tablet 46 bedtime. Medical Branch ramipril 10 Yes 10mg Take 10 mg [facility] mg capsule 4-15 by mouth ity o f 15:08: daily. [place] [address] Medical Branch aspirin 81 Yes 81mg Take 81 mg U nivers mg chewable 4-15 by mouth ity of tablet 15:08: daily. [place] [address] Medical Branch docosahexan Yes 1{capsu Take 1 U nivers oic 4-15 le} capsule by ity of acid/epa 15:08: mouth [place] (FISH OIL 46 daily. Medical ORAL) Branch ergocalcife Yes 500mg Take 500 U nivers rol, 4-15 mg by ity of vitamin D2, 15:08: mouth [place] (VITAMIN D 46 daily. Medical ORAL) Branch gluc Yes 2{tbl} Take 2 [facility] sainz/chondro 4-15 tablets by ity of sainz A/vit 15:08: mouth. [place] C/Mn 46 Medical (GLUCOSAMIN Branch E 1500 COMPLEX ORAL) chondroitin Yes 2400mg Take 2,400 [facility] sulfate A 4-15 mg by ity of sodium 15:08: mouth [place] (CHONDROITI 46 daily. Medica l N SULFATE Branch ORAL) fexofenadin Yes 180mg Take 180 U nivers e 180 mg 4-15 mg by ity of tablet 15:08: mouth [place] 46 daily. Medical Branch ibuprofen Yes 200mg Take 200 Uni vers 200 mg 4-15 mg by ity of tablet 15:08: mouth [place] 46 every 6 Medical (six) Branch hours as needed. vitamin B Yes 2{tbl} Take 2 Univ ers complex vit 4-15 tablets by it y of C no.4 15:08: mouth [place] (SUPER B 46 daily. Medical COMPLEX + C Branch ORAL) rosuvastati Yes 10mg Take 10 mg [facility] n (CRESTOR) 4-15 by mouth ity of 10 mg 15:08: at [place] tablet 46 bedtime. Medical Branch ramipril 10 Yes 10mg Take 10 mg [facility] mg capsule 4-15 by mouth ity o f 15:08: daily. [place] [address] Medical Branch aspirin 81 Yes 81mg Take 81 mg U nivers mg chewable 4-15 by mouth ity of tablet 15:08: daily. [place] [address] Medical Branch docosahexan Yes 1{capsu Take 1 U nivers oic 4-15 le} capsule by ity of acid/epa 15:08: mouth [place] (FISH OIL 46 daily. Medical ORAL) Branch ergocalcife Yes 500mg Take 500 U nivers rol, 4-15 mg by ity of vitamin D2, 15:08: mouth [place] (VITAMIN D 46 daily. Medical ORAL) Branch gluc Yes 2{tbl} Take 2 [facility] sainz/chondro 4-15 tablets by ity of sainz A/vit 15:08: mouth. [place] C/Mn 46 Medical (GLUCOSAMIN Branch E 1500 COMPLEX ORAL) chondroitin Yes 2400mg Take 2,400 [facility] sulfate A 4-15 mg by ity of sodium 15:08: mouth [place] (CHONDROITI 46 daily. Medica l N SULFATE Branch ORAL) fexofenadin Yes 180mg Take 180 U nivers e 180 mg 4-15 mg by ity of tablet 15:08: mouth [place] 46 daily. Medical Branch ibuprofen Yes 200mg Take 200 Uni vers 200 mg 4-15 mg by ity of tablet 15:08: mouth [place] 46 every 6 Medical (six) Branch hours as needed. vitamin B Yes 2{tbl} Take 2 Univ ers complex vit 4-15 tablets by it y of C no.4 15:08: mouth [place] (SUPER B 46 daily. Medical COMPLEX + C Branch ORAL) rosuvastati Yes 10mg Take 10 mg [facility] n (CRESTOR) 4-15 by mouth ity of 10 mg 15:08: at [place] tablet 46 bedtime. Medical Branch ramipril 10 Yes 10mg Take 10 mg [facility] mg capsule 4-15 by mouth ity o f 15:08: daily. [place] [address] Medical Branch aspirin 81 Yes 81mg Take 81 mg U nivers mg chewable 4-15 by mouth ity of tablet 15:08: daily. [place] [address] Medical Branch docosahexan Yes 1{capsu Take 1 U nivers oic 4-15 le} capsule by ity of acid/epa 15:08: mouth [place] (FISH OIL 46 daily. Medical ORAL) Branch ergocalcife Yes 500mg Take 500 U nivers rol, 4-15 mg by ity of vitamin D2, 15:08: mouth [place] (VITAMIN D 46 daily. Medical ORAL) Branch gluc Yes 2{tbl} Take 2 [facility] sainz/chondro 4-15 tablets by ity of sainz A/vit 15:08: mouth. [place] C/Mn 46 Medical (GLUCOSAMIN Branch E 1500 COMPLEX ORAL) chondroitin Yes 2400mg Take 2,400 [facility] sulfate A 4-15 mg by ity of sodium 15:08: mouth [place] (CHONDROITI 46 daily. Medica l N SULFATE Branch ORAL) fexofenadin Yes 180mg Take 180 U nivers e 180 mg 4-15 mg by ity of tablet 15:08: mouth [place] 46 daily. Medical Branch ibuprofen Yes 200mg Take 200 Uni vers 200 mg 4-15 mg by ity of tablet 15:08: mouth [place] 46 every 6 Medical (six) Branch hours as needed. vitamin B Yes 2{tbl} Take 2 Univ ers complex vit 4-15 tablets by it y of C no.4 15:08: mouth [place] (SUPER B 46 daily. Medical COMPLEX + C Branch ORAL) rosuvastati Yes 10mg Take 10 mg [facility] n (CRESTOR) 4-15 by mouth ity of 10 mg 15:08: at [place] tablet 46 bedtime. Medical Branch ramipril 10 Yes 10mg Take 10 mg [facility] mg capsule 4-15 by mouth ity o f 15:08: daily. [address] Branch aspirin 81 Yes 81mg Take 81 mg U nivers mg chewable 4-15 by mouth ity of tablet 15:08: daily. [place] [address] Medical Branch docosahexan Yes 1{capsu Take 1 U nivers oic 4-15 le} capsule by ity of acid/epa 15:08: mouth [place] (FISH OIL 46 daily. Medical ORAL) Branch ergocalcife Yes 500mg Take 500 U nivers rol, 4-15 mg by ity of vitamin D2, 15:08: mouth [place] (VITAMIN D 46 daily. Medical ORAL) Branch gluc Yes 2{tbl} Take 2 [facility] sainz/chondro 4-15 tablets by ity of sainz A/vit 15:08: mouth. [place] C/Mn 46 Medical (GLUCOSAMIN Branch E 1500 COMPLEX ORAL) chondroitin Yes 2400mg Take 2,400 [facility] sulfate A 4-15 mg by ity of sodium 15:08: mouth [place] (CHONDROITI 46 daily. Medica l N SULFATE Branch ORAL) fexofenadin Yes 180mg Take 180 U nivers e 180 mg 4-15 mg by ity of tablet 15:08: mouth [place] 46 daily. Medical Branch ibuprofen Yes 200mg Take 200 Uni vers 200 mg 4-15 mg by ity of tablet 15:08: mouth [place] 46 every 6 Medical (six) Branch hours as needed. vitamin B Yes 2{tbl} Take 2 Univ ers complex vit 4-15 tablets by it y of C no.4 15:08: mouth [place] (SUPER B 46 daily. Medical COMPLEX + C Branch ORAL) rosuvastati Yes 10mg Take 10 mg [facility] n (CRESTOR) 4-15 by mouth ity of 10 mg 15:08: at [place] tablet 46 bedtime. Medical Branch ramipril 10 Yes 10mg Take 10 mg [facility] mg capsule 4-15 by mouth ity o f 15:08: daily. [place] [address] Medical Branch aspirin 81 Yes 81mg Take 81 mg U nivers mg chewable 4-15 by mouth ity of tablet 15:08: daily. [place] [address] Medical Branch docosahexan Yes 1{capsu Take 1 U nivers oic 4-15 le} capsule by ity of acid/epa 15:08: mouth [place] (FISH OIL 46 daily. Medical ORAL) Branch ergocalcife Yes 500mg Take 500 U nivers rol, 4-15 mg by ity of vitamin D2, 15:08: mouth [place] (VITAMIN D 46 daily. Medical ORAL) Branch gluc Yes 2{tbl} Take 2 [facility] sainz/chondro 4-15 tablets by ity of sainz A/vit 15:08: mouth. [place] C/Mn 46 Medical (GLUCOSAMIN Branch E 1500 COMPLEX ORAL) chondroitin Yes 2400mg Take 2,400 [facility] sulfate A 4-15 mg by ity of sodium 15:08: mouth [place] (CHONDROITI 46 daily. Medica l N SULFATE Branch ORAL) fexofenadin Yes 180mg Take 180 U nivers e 180 mg 4-15 mg by ity of tablet 15:08: mouth [place] 46 daily. Medical Branch ibuprofen Yes 200mg Take 200 Uni vers 200 mg 4-15 mg by ity of tablet 15:08: mouth [place] 46 every 6 Medical (six) Branch hours as needed. vitamin B Yes 2{tbl} Take 2 Univ ers complex vit 4-15 tablets by it y of C no.4 15:08: mouth [place] (SUPER B 46 daily. Medical COMPLEX + C Branch ORAL) rosuvastati Yes 10mg Take 10 mg [facility] n (CRESTOR) 4-15 by mouth ity of 10 mg 15:08: at [place] tablet 46 bedtime. Medical Branch ramipril 10 Yes 10mg Take 10 mg [facility] mg capsule 4-15 by mouth ity o f 15:08: daily. [place] [address] Medical Branch aspirin 81 Yes 81mg Take 81 mg U nivers mg chewable 4-15 by mouth ity of tablet 15:08: daily. [place] [address] Medical Branch docosahexan Yes 1{capsu Take 1 U nivers oic 4-15 le} capsule by ity of acid/epa 15:08: mouth [place] (FISH OIL 46 daily. Medical ORAL) Branch ergocalcife Yes 500mg Take 500 U nivers rol, 4-15 mg by ity of vitamin D2, 15:08: mouth [place] (VITAMIN D 46 daily. Medical ORAL) Branch gluc Yes 2{tbl} Take 2 [facility] sainz/chondro 4-15 tablets by ity of sainz A/vit 15:08: mouth. [place] C/Mn 46 Medical (GLUCOSAMIN Branch E 1500 COMPLEX ORAL) chondroitin Yes 2400mg Take 2,400 [facility] sulfate A 4-15 mg by ity of sodium 15:08: mouth [place] (CHONDROITI 46 daily. Medica l N SULFATE Branch ORAL) fexofenadin Yes 180mg Take 180 U nivers e 180 mg 4-15 mg by ity of tablet 15:08: mouth [place] 46 daily. Medical Branch ibuprofen Yes 200mg Take 200 Uni vers 200 mg 4-15 mg by ity of tablet 15:08: mouth [place] 46 every 6 Medical (six) Branch hours as needed. vitamin B Yes 2{tbl} Take 2 Univ ers complex vit 4-15 tablets by it y of C no.4 15:08: mouth [place] (SUPER B 46 daily. Medical COMPLEX + C Branch ORAL) rosuvastati Yes 10mg Take 10 mg [facility] n (CRESTOR) 4-15 by mouth ity of 10 mg 15:08: at [place] tablet 46 bedtime. Medical Branch ramipril 10 Yes 10mg Take 10 mg [facility] mg capsule 4-15 by mouth ity o f 15:08: daily. [place] [address] Medical Branch aspirin 81 0 Yes 81mg Take 81 mg U nivers mg chewable 4-15 by mouth ity of tablet 15:08: daily. [place] [address] Medical Branch docosahexan Yes 1{capsu Take 1 U nivers oic 4-15 le} capsule by ity of acid/epa 15:08: mouth [place] (FISH OIL 46 daily. Medical ORAL) Branch ergocalcife Yes 500mg Take 500 U nivers rol, 4-15 mg by ity of vitamin D2, 15:08: mouth [place] (VITAMIN D 46 daily. Medical ORAL) Branch gluc Yes 2{tbl} Take 2 [facility] sainz/chondro 4-15 tablets by ity of sainz A/vit 15:08: mouth. [place] C/[place] 46 Medical (GLUCOSAMIN Branch E 1500 COMPLEX ORAL) chondroitin Yes 2400mg Take 2,400 [facility] sulfate A 4-15 mg by ity of sodium 15:08: mouth [place] (CHONDROITI 46 daily. Medica l N SULFATE Branch ORAL) fexofenadin Yes 180mg Take 180 U nivers e 180 mg 4-15 mg by ity of tablet 15:08: mouth [place] 46 daily. Medical Branch vitamin B Yes 2{tbl} Take 2 Univ ers complex vit 4-15 tablets by it y of C no.4 15:08: mouth [place] (SUPER B 46 daily. Medical COMPLEX + C Branch ORAL) rosuvastati Yes 10mg Take 10 mg [facility] n (CRESTOR) 4-15 by mouth ity of 10 mg 15:08: at [place] tablet 46 bedtime. Medical Branch ramipril 10 Yes 10mg Take 10 mg [facility] mg capsule 4-15 by mouth ity o f 15:08: daily. [place] [address] Medical Branch aspirin 81 Yes 81mg Take 81 mg U nivers mg chewable 4-15 by mouth ity of tablet 15:08: daily. [place] [address] Medical Branch docosahexan Yes 1{capsu Take 1 U nivers oic 4-15 le} capsule by ity of acid/epa 15:08: mouth [place] (FISH OIL 46 daily. Medical ORAL) Branch ergocalcife Yes 500mg Take 500 U nivers rol, 4-15 mg by ity of vitamin D2, 15:08: mouth [place] (VITAMIN D 46 daily. Medical ORAL) Branch gluc Yes 2{tbl} Take 2 [facility] sainz/chondro 4-15 tablets by ity of sainz A/vit 15:08: mouth. [place] C/Mn 46 Medical (GLUCOSAMIN Branch E 1500 COMPLEX ORAL) chondroitin Yes 2400mg Take 2,400 [facility] sulfate A 4-15 mg by ity of sodium 15:08: mouth [place] (CHONDROITI 46 daily. Medica l N SULFATE Branch ORAL) fexofenadin Yes 180mg Take 180 U nivers e 180 mg 4-15 mg by ity of tablet 15:08: mouth [place] 46 daily. Medical Branch vitamin B Yes 2{tbl} Take 2 Univ ers complex vit 4-15 tablets by it y of C no.4 15:08: mouth [place] (SUPER B 46 daily. Medical COMPLEX + C Branch ORAL) rosuvastati Yes 10mg Take 10 mg [facility] n (CRESTOR) 4-15 by mouth ity of 10 mg 15:08: at [place] tablet 46 bedtime. Medical Branch ramipril 10 Yes 10mg Take 10 mg [facility] mg capsule 4-15 by mouth ity o f 15:08: daily. [address] Branch aspirin 81 Yes 81mg Take 81 mg U nivers mg chewable 4-15 by mouth ity of tablet 15:08: daily. [place] [address] Medical Branch docosahexan Yes 1{capsu Take 1 U nivers oic 4-15 le} capsule by ity of acid/epa 15:08: mouth [place] (FISH OIL 46 daily. Medical ORAL) Branch ergocalcife Yes 500mg Take 500 U nivers rol, 4-15 mg by ity of vitamin D2, 15:08: mouth [place] (VITAMIN D 46 daily. Medical ORAL) Branch gluc Yes 2{tbl} Take 2 [facility] sainz/chondro 4-15 tablets by ity of sainz A/vit 15:08: mouth. [place] C/Mn Medical (GLUCOSAMIN Branch E 1500 COMPLEX ORAL) chondroitin Yes 2400mg Take 2,400 [facility] sulfate A 4-15 mg by ity of sodium 15:08: mouth [place] (CHONDROITI 46 daily. Medica l N SULFATE Branch ORAL) fexofenadin Yes 180mg Take 180 U nivers e 180 mg 4-15 mg by ity of tablet 15:08: mouth [place] 46 daily. Medical Branch vitamin B Yes 2{tbl} Take 2 Univ ers complex vit 4-15 tablets by it y of C no.4 15:08: mouth [place] (SUPER B 46 daily. Medical COMPLEX + C Branch ORAL) rosuvastati Yes 10mg Take 10 mg [facility] n (CRESTOR) 4-15 by mouth ity of 10 mg 15:08: at [place] tablet 46 bedtime. Medical Branch ramipril 10 Yes 10mg Take 10 mg [facility] mg capsule 4-15 by mouth ity o f 15:08: daily. [address] Branch aspirin 81 Yes 81mg Take 81 mg U nivers mg chewable 4-15 by mouth ity of tablet 15:08: daily. [place] [address] Medical Branch docosahexan Yes 1{capsu Take 1 U nivers oic 4-15 le} capsule by ity of acid/epa 15:08: mouth [place] (FISH OIL 46 daily. Medical ORAL) Branch ergocalcife Yes 500mg Take 500 U nivers rol, 4-15 mg by ity of vitamin D2, 15:08: mouth [place] (VITAMIN D 46 daily. Medical ORAL) Branch gluc Yes 2{tbl} Take 2 [facility] sainz/chondro 4-15 tablets by ity of sainz A/vit 15:08: mouth. [place] C/Mn 46 Medical (GLUCOSAMIN Branch E 1500 COMPLEX ORAL) chondroitin Yes 2400mg Take 2,400 [facility] sulfate A 4-15 mg by ity of sodium 15:08: mouth [place] (CHONDROITI 46 daily. Medica l N SULFATE Branch ORAL) fexofenadin Yes 180mg Take 180 U nivers e 180 mg 4-15 mg by ity of tablet 15:08: mouth [place] 46 daily. Medical Branch vitamin B Yes 2{tbl} Take 2 Univ ers complex vit 4-15 tablets by it y of C no.4 15:08: mouth [place] (SUPER B 46 daily. Medical COMPLEX + C Branch ORAL) ergocalcife Yes 500mg Take 500 U nivers rol, 4-15 mg by ity of vitamin D2, 10:08: mouth [place] (VITAMIN D 46 daily. Medical ORAL) Branch gluc Yes 2{tbl} Take 2 [facility] sainz/chondro 4-15 tablets by ity of sainz A/vit 10:08: mouth. [place] C/Mn 46 Medical (GLUCOSAMIN Branch E 1500 COMPLEX ORAL) chondroitin Yes 2400mg Take 2,400 [facility] sulfate A 4-15 mg by ity of sodium 10:08: mouth [place] (CHONDROITI 46 daily. Medica l N SULFATE Branch ORAL) fexofenadin Yes 180mg Take 180 U nivers e 180 mg 4-15 mg by ity of tablet 10:08: mouth [place] 46 daily. Medical Branch vitamin B Yes 2{tbl} Take 2 Univ ers complex vit 4-15 tablets by it y of C no.4 10:08: mouth [place] (SUPER B 46 daily. Medical COMPLEX + C Branch ORAL) rosuvastati Yes 10mg Take 10 mg [facility] n (CRESTOR) 4-15 by mouth ity of 10 mg 10:08: at [place] tablet 46 bedtime. Medical Branch ramipril 10 0 Yes 10mg Take 10 mg [facility] mg capsule 4-15 by mouth ity o f 10:08: daily. [place] [address] Medical Branch aspirin 81 0 Yes 81mg Take 81 mg U nivers mg chewable 4-15 by mouth ity of tablet 10:08: daily. [place] [address] Medical Branch docosahexan 0 Yes 1{capsu Take 1 U nivers oic 4-15 le} capsule by ity of acid/epa 10:08: mouth [place] (FISH OIL 46 daily. Medical ORAL) Branch rosuvastati Yes 10mg Take 10 mg [facility] n (CRESTOR) 4-08 by mouth ity of 10 mg 21:14: at [place] tablet 58 bedtime. Medical Branch ramipril 10 Yes 10mg Take 10 mg [facility] mg capsule 4-08 by mouth ity o f 21:14: daily. [place] [address] Medical Branch aspirin 81 Yes 81mg Take 81 mg U nivers mg chewable 4-08 by mouth ity of tablet 21:14: daily. [place] [address] Medical Branch docosahexan Yes 1{capsu Take 1 U nivers oic 4-08 le} capsule by ity of acid/epa 21:14: mouth [place] (FISH OIL 58 daily. Medical ORAL) Branch ergocalcife Yes 500mg Take 500 U nivers rol, 4-08 mg by ity of vitamin D2, 21:14: mouth [place] (VITAMIN D 58 daily. Medical ORAL) Branch gluc Yes 2{tbl} Take 2 [facility] sainz/chondro 4-08 tablets by ity of sainz A/vit 21:14: mouth. [place] C/Mn 58 Medical (GLUCOSAMIN Branch E 1500 COMPLEX ORAL) chondroitin 0 Yes 2400mg Take 2,400 [facility] sulfate A 4-08 mg by ity of sodium 21:14: mouth [place] (CHONDROITI 58 daily. Medica l N SULFATE Branch ORAL) fexofenadin 0 Yes 180mg Take 180 U nivers e 180 mg 4-08 mg by ity of tablet 21:14: mouth [place] 58 daily. Medical Branch ibuprofen Yes 200mg Take 200 Uni vers 200 mg 4-08 mg by ity of tablet 21:14: mouth [place] 58 every 6 Medical (six) Branch hours as needed. vitamin B Yes 2{tbl} Take 2 Univ ers complex vit 4-08 tablets by it y of C no.4 21:14: mouth [place] (SUPER B 58 daily. Medical COMPLEX + C Branch ORAL) rosuvastati Yes 10mg Take 10 mg [facility] n (CRESTOR) 4-08 by mouth ity of 10 mg 21:14: at [place] tablet 58 bedtime. Medical Branch ramipril 10 Yes 10mg Take 10 mg [facility] mg capsule 4-08 by mouth ity o f 21:14: daily. [place] [address] Medical Branch aspirin 81 Yes 81mg Take 81 mg U nivers mg chewable 4-08 by mouth ity of tablet 21:14: daily. [place] [address] Medical Branch docosahexan Yes 1{capsu Take 1 U nivers oic 4-08 le} capsule by ity of acid/epa 21:14: mouth [place] (FISH OIL 58 daily. Medical ORAL) Branch ergocalcife Yes 500mg Take 500 U nivers rol, 4-08 mg by ity of vitamin D2, 21:14: mouth [place] (VITAMIN D 58 daily. Medical ORAL) Branch gluc Yes 2{tbl} Take 2 [facility] sainz/chondro 4-08 tablets by ity of sainz A/vit 21:14: mouth. [place] C/Mn 58 Medical (GLUCOSAMIN Branch E 1500 COMPLEX ORAL) chondroitin Yes 2400mg Take 2,400 [facility] sulfate A 4-08 mg by ity of sodium 21:14: mouth [place] (CHONDROITI 58 daily. Medica l N SULFATE Branch ORAL) fexofenadin Yes 180mg Take 180 U nivers e 180 mg 4-08 mg by ity of tablet 21:14: mouth [place] 58 daily. Medical Branch ibuprofen Yes 200mg Take 200 Uni vers 200 mg 4-08 mg by ity of tablet 21:14: mouth [place] 58 every 6 Medical (six) Branch hours as needed. vitamin B Yes 2{tbl} Take 2 Univ ers complex vit 4-08 tablets by it y of C no.4 21:14: mouth [place] (SUPER B 58 daily. Medical COMPLEX + C Branch ORAL) rosuvastati Yes 10mg Take 10 mg [facility] n (CRESTOR) 4-08 by mouth ity of 10 mg 21:14: at [place] tablet 58 bedtime. Medical Branch ramipril 10 Yes 10mg Take 10 mg [facility] mg capsule 4-08 by mouth ity o f 21:14: daily. [place] [address] Medical Branch aspirin 81 Yes 81mg Take 81 mg U nivers mg chewable 4-08 by mouth ity of tablet 21:14: daily. [place] [address] Medical Branch docosahexan Yes 1{capsu Take 1 U nivers oic 4-08 le} capsule by ity of acid/epa 21:14: mouth [place] (FISH OIL 58 daily. Medical ORAL) Branch ergocalcife Yes 500mg Take 500 U nivers rol, 4-08 mg by ity of vitamin D2, 21:14: mouth [place] (VITAMIN D 58 daily. Medical ORAL) Branch gluc Yes 2{tbl} Take 2 [facility] sainz/chondro 4-08 tablets by ity of sainz A/vit 21:14: mouth. [place] C/Mn 58 Medical (GLUCOSAMIN Branch E 1500 COMPLEX ORAL) chondroitin Yes 2400mg Take 2,400 [facility] sulfate A 4-08 mg by ity of sodium 21:14: mouth [place] (CHONDROITI 58 daily. Medica l N SULFATE Branch ORAL) fexofenadin Yes 180mg Take 180 U nivers e 180 mg 4-08 mg by ity of tablet 21:14: mouth [place] 58 daily. Medical Branch ibuprofen Yes 200mg Take 200 Uni vers 200 mg 4-08 mg by ity of tablet 21:14: mouth [place] 58 every 6 Medical (six) Branch hours as needed. vitamin B Yes 2{tbl} Take 2 Univ ers complex vit 4-08 tablets by it y of C no.4 21:14: mouth [place] (SUPER B 58 daily. Medical COMPLEX + C Branch ORAL) piperacilli Yes 3.375g 3.375 g, [facility] n-tazobacta 4-08 IV ity of m (ZOSYN) 20:00: [place], [place] 3.375 g in 00 Q6H ABX, Medic al NaCl 0.9% First dose Bran ch (NS) 100 mL on [place] MINI-BAG 08/05/20 at 1500, Until Discontinu ed, 100 mL
R gabriele for Anti-Infec tive: Empiric Therapy for Suspected Infection< br>Empiric Therapy Site: Abdominal< br>Duratio n of therapy: 72 hours piperacilli 2021-0 2021- No 3.375g 3.375 g, Univers n-tazobacta 08 04-08 IV ity of m (ZOSYN) 20:00: 23:14 Piggyback, [place] 3.375 g in 00 :59 Q6H ABX, Medic al NaCl 0.9% First dose Bran ch (NS) 100 mL on [place] MINI-BAG 08/05/20 at 1500, Until Discontinu ed, 100 mL
R gabriele for Anti-Infec tive: Empiric Therapy for Suspected Infection< br>Empiric Therapy Site: Abdominal< br>Duratio n of therapy: 72 hours HYDROmorpho 2020-0 Yes .2mg 0.2 mg, Uni vers ne 4-08 Slow IV ity of (DILAUDID) 13:39: Push, [place] injection 15 Q5MIN PRN, Medi roger 0.2 mg 10 doses, Branch Starting [place] 08/05/20 at 0839, Until Discontinu ed, Routine, Pain (scale 7-10), PACU
Us e approved by (Faculty): PACU USE -ANESTHESI A SERVICE-HY DROMORPHON E INJECTIONS FENTanyl PF 2020-0 Yes 25ug 25 mcg, Uni vers (SUBLIMAZE 4-08 Slow IV ity of (PF)) 13:39: Push, [place] injection 15 Q5MIN PRN, Medi roger 25 mcg 4 doses, Branch Starting [place] 08/05/20 at 0839, Until Discontinu ed, Routine, Pain (scale 4-6), PACU ondansetron 2020-0 Yes 4mg 4 mg, Slow Univers (ZOFRAN 4-08 IV Push, ity of (PF)) 13:39: PRN, 1 [place] injection 4 15 dose, Medical mg Starting Branch [place] 08/05/20 at 0839, Until Discontinu ed, Routine, Nausea and Vomiting (N/V), PACU HYDROmorpho No .2mg 0.2 mg, Un james ne 08-05 Slow IV ity of (DILAUDID) 13:39: 23:14 Push, [place] injection 15 :59 Q5MIN PRN, Medi roger 0.2 mg 10 doses, Branch Starting [place] 08/05/20 at 0839, Until [place] 08/05/20 at 1814, Routine, Pain (scale 7-10), PACU
Us e approved by (Faculty): PACU USE -ANESTHESI A SERVICE-HY DROMORPHON E INJECTIONS FENTanyl PF No 25ug 25 mcg, Un james (SUBLIMAZE 08-05 Slow IV ity o f (PF)) 13:39: 23:14 Push, [place] injection 15 :59 Q5MIN PRN, Medi roger 25 mcg 4 doses, Branch Starting [place] 08/05/20 at 0839, Until [place] 08/05/20 at 1814, Routine, Pain (scale 4-6), PACU ondansetron No 4mg 4 mg, Slow [facility] (ZOFRAN 08-05 IV Push, ity of (PF)) 13:39: 23:14 PRN, 1 [place] injection 4 15 :59 dose, Medical mg Starting Branch [place] 08/05/20 at 0839, Until [place] 08/05/20 at 1814, Routine, Nausea and Vomiting (N/V), PACU ibuprofen Yes 600mg 600 mg, Univ ers (IBU) 4-08 Oral, Q8H ity of tablet 600 02:00: ABX, First [place] mg 00 dose on Medical Sun08/04/20 Branch at 2100, Until Discontinu ed, Routine ibuprofen 2020- No 600mg 600 mg, Uni vers (IBU) 08-05 04-08 Oral, Q8H ity of tablet 600 02:00: 23:14 ABX, First [place] mg 00 :59 dose on Medical Sun08/04/20 Branch at 2100, Until Discontinu ed, Routine traMADoL 50 2021-0 Yes 4647 50mg Take 1-2 Un james mg tablet 4-08 tablets by ity of 00:00: mouth [place] 00 every 6 Medical (six) Branch hours as needed for Pain (scale 7-10). Indication s: acute pain traMADoL 50 2020-0 Yes 4647 50mg Take 1-2 Un james mg tablet 4-08 tablets by ity of 00:00: mouth [place] 00 every 6 Medical (six) Branch hours as needed for Pain (scale 7-10). Indication s: acute pain traMADoL 50 2020-0 Yes 4647 50mg Take 1-2 Un james mg tablet 4-08 tablets by ity of 00:00: mouth [place] 00 every 6 Medical (six) Branch hours as needed for Pain (scale 7-10). Indication s: acute pain traMADoL 50 2020-0 Yes 4647 50mg Take 1-2 Un james mg tablet 4-08 tablets by ity of 00:00: mouth [place] 00 every 6 Medical (six) Branch hours as needed for Pain (scale 7-10). Indication s: acute pain traMADoL 50 2020-0 Yes 4647 50mg Take 1-2 Un james mg tablet 4-08 tablets by ity of 00:00: mouth [place] 00 every 6 Medical (six) Branch hours as needed for Pain (scale 7-10). Indication s: acute pain traMADoL 50 2020-0 Yes 4647 50mg Take 1-2 Un james mg tablet 4-08 tablets by ity of 00:00: mouth [place] 00 every 6 Medical (six) Branch hours as needed for Pain (scale 7-10). Indication s: acute pain traMADoL 50 2020-0 Yes 4647 50mg Take 1-2 Un james mg tablet 4-08 tablets by ity of 00:00: mouth [place] 00 every 6 Medical (six) Branch hours as needed for Pain (scale 7-10). Indication s: acute pain traMADoL 50 2020-0 Yes 4647 50mg Take 1-2 Un james mg tablet 4-08 tablets by ity of 00:00: mouth [place] 00 every 6 Medical (six) Branch hours as needed for Pain (scale 7-10). Indication s: acute pain traMADoL 50 2020-0 Yes 4647 50mg Take 1-2 Un james mg tablet 4-08 tablets by ity of 00:00: mouth [place] 00 every 6 Medical (six) Branch hours as needed for Pain (scale 7-10). Indication s: acute pain traMADoL 50 2020-0 Yes 4647 50mg Take 1-2 Un james mg tablet 4-08 tablets by ity of 00:00: mouth [place] 00 every 6 Medical (six) Branch hours as needed for Pain (scale 7-10). Indication s: acute pain traMADoL 50 2020-0 Yes 4647 50mg Take 1-2 Un james mg tablet 4-08 tablets by ity of 00:00: mouth [place] 00 every 6 Medical (six) Branch hours as needed for Pain (scale 7-10). Indication s: acute pain traMADoL 50 2020-0 Yes 4647 50mg Take 1-2 Un james mg tablet 4-08 tablets by ity of 00:00: mouth [place] 00 every 6 Medical (six) Branch hours as needed for Pain (scale 7-10). Indication s: acute pain traMADoL 50 2020-0 Yes 4647 50mg Take 1-2 Un james mg tablet 4-08 tablets by ity of 00:00: mouth [place] 00 every 6 Medical (six) Branch hours as needed for Pain (scale 7-10). Indication s: acute pain traMADoL 50 2020-0 Yes 4647 50mg Take 1-2 Un james mg tablet 4-08 tablets by ity of 00:00: mouth [place] 00 every 6 Medical (six) Branch hours as needed for Pain (scale 7-10). Indication s: acute pain traMADoL 50 2020-0 Yes 4647 50mg Take 1-2 Un james mg tablet 4-08 tablets by ity of 00:00: mouth [place] 00 every 6 Medical (six) Branch hours as needed for Pain (scale 7-10). Indication s: acute pain acetaminoph 2020-0 Yes 650mg 650 mg, Un james en - Oral, Q6H ity of (TYLENOL) 22:00: ABX, First [place] tablet 650 00 dose Medical mg (after Branch last modificati on) on Sun08/04/20 at 1700, Until Discontinu ed, Routine acetaminoph 2020- No 650mg 650 mg, U nivers en 08-04 04-08 Oral, Q6H ity of (TYLENOL) 22:00: 23:14 ABX, First [place] tablet 650 00 :59 dose Medical mg (after Branch last modificati on) on Sun08/04/20 at 1700, Until Discontinu ed, Routine traMADoL Yes 50mg 50 mg, Univers (ULTRAM) 4 Oral, ity of tablet 50 21:25: Q4HPRN, [place] mg 10 Starting Medical Sun08/04/20 Branch at 1625, Until Discontinu ed, Routine, Pain (scale 7-10) traMADoL 2020- No 50mg 50 mg, Univer s (ULTRAM) 08-0408 Oral, ity of tablet 50 21:25: 23:14 Q4HPRN, [place] mg 10 :59 Starting Medical Sun08/04/20 Branch at 1625, Until [place] 08/05/20 at 1814, Routine, Pain (scale 7-10) morpHINE Yes 2mg 2 mg, Slow Uni vers injection 2 08-04 IV Push, ity of mg 21:24: Q3HPRN, [place] 49 Starting Medical Sun08/04/20 Branch at 1624, Until Discontinu ed, Routine, breakthrou gh morpHINE 2020- No 2mg 2 mg, Slow Un james injection 2 08-04 IV Push, ity of mg 21:24: 23:14 Q3HPRN, [place] 49 :59 Starting Medical Sun08/04/20 Branch at 1624, Until [place] 08/05/20 at 1814, Routine, breakthrou gh lidocaine 2020- No PRN, Univers 1% 08-04 Starting ity of (XYLOCAINE) 19:10: 21:59 [facility] 08/04/20 [place] 10 mg/mL (1 00 :25 at 1410, Medi roger %) Until Sun Branch injection 08/04/20 at 1659, Routine, Intra-op iohexoL 2020- No PRN, Univers (OMNIPAQUE 08-04 Starting ity of 300-50 mL)) 19:07: 21:59 08/04/20 [place] injection 00 :25 at 1407, Medica l Until Sun Branch 08/04/20 at 1659, Routine, Intra-op bupivacaine 2020- No PRN, Unive rs -epinephrin 08-04 Starting ity of e-pf 18:45: 21:59 08/04/20 [place] (SENSORCAIN 00 :25 at 1345, Medi roger E Until Sun Branch W/EPINEPHRI 08/04/20 at NE) 0.25 1659, %-1:200,000 Routine, injection Intra-op lactated 2020- No 1000mL at 42 [facility] rs ringers IV 08-04 mL/hr, ity of infusion 17:45: 17:44 1,000 mL, [place] as 1,000 mL 00 :00 IV Medical Infusion, Branch ONCE, 1 dose, 08/04/20 at 1245, Routine, DSU Pre-op gadoteridol 2020- No [id number] .2mL/kg 16.52 mL Univers (PROHANCE-2 08-03 (0.2 mL/kg i ty of 0 mL) 20:00: 20:00 ?82.6 kg), [place] injection 00 :00 Intravenou Medi roger 16.52 mL s, ONCE, 1 Branc h dose, 08/03/20 at 1500, Routine piperacilli 2020- No 3.375g 3.375 g, Univers n-tazobacta 08-03 IV ity of m (ZOSYN) 19:30: 16:39 Piggyback, [place] 3.375 g in 00 :18 Q6H ABX, Medic al NaCl 0.9% First dose Bran ch (NS) 100 mL on Sun MINI-BAG 08/03/20 at 1430, Until Discontinu ed, 100 mL
R gabriele for Anti-Infec tive: Empiric Therapy for Suspected Infection< br>Empiric Therapy Site: Abdominal< br>Duratio n of therapy: 7 days iohexol 2020- No [id number] 120mL 120 mL, U nivers (OMNIPAQUE 08-03 Intravenou it y of 350 17:45: 17:21 s, ONCE, 1 [place] BULK-150 00 :00 dose, Tue Medica l mL) 08/03/20 at [place] injection 1245, 120 mL Routine aspirin Yes 81mg 81 mg, Univers chewable 08-03 Oral, ity of tablet 81 14:00: DAILY, [place] mg 00 First dose Medical on [facility] 08/03/20 at 0900, Until Discontinu ed, Routine aspirin 2020- No 81mg 81 mg, Univers chewable 08-03 Oral, ity of tablet 81 14:00: 23:14 DAILY, [place] mg 00 :59 First dose Medical on [facility] 08/03/20 at 0900, Until Discontinu ed, Routine maalox:diph No 15mL 15 mL, Uni vers enhydrAMINE 08-03 Oral, ity of :lidocaine 14:00: 13:20 ONCE, 1 [place] as 2 % viscous 00 :00 dose, [facility] Med ical 1:1:1 08/03/20 at [place] (FIRST-MOUT 0900, [facility]) Routine oral suspension 15 mL enoxaparin 2020- No 1mg/kg 80 mg Uni vers (LOVENOX) 08-03 (rounded ity o f injection 12:30: 14:16 [place] 82.6 [place] 80 mg 00 :37 mg = 1 Medical mg/kg [place] ?82.6 kg), Subcutaneo us, Q12H, First dose (after last modificati on) on 08/03/20 at 0730, Until Discontinu ed, Routine NaCl 0.9% 2020- No 500mL at 999 [facility] ers (NS) bolus 08-03 mL/hr, 500 it y of infusion 12:30: 11:28 mL, IV [place] 500 mL 00 :00 Piggyback, Medical ONCE, 1 [place] dose, [facility] 08/03/20 at 0730, STAT morpHINE No 2mg 2 mg, Slow Un james injection 2 08-03 IV Push, ity of mg 11:45: 11:01 ONCE, 1 [place] 00 :00 dose, [facility] 08/03/20 at [place] 0645, Routine rosuvastati 2020- No 10mg 10 mg, Uni vers n (CRESTOR) 08-0307 Oral, QHS, i ty of tablet 10 02:00: 16:39 First dose [place] mg 00 :21 on [facility] 08/02/20 at Branch 2100, Until Discontinu ed, Routine captopriL Yes 25mg 25 mg, Univer s (CAPOTEN) 06 Oral, BID, ity of tablet 25 01:00: First dose [place] mg 00 on [facility] 08/02/20 at [place] 1999, Until Discontinu ed captopriL No 25mg 25 mg, Unive rs (CAPOTEN) 08-0308 Oral, BID, ity of tablet 25 01:00: 23:14 First dose [place] mg 00 :59 on [facility] 08/02/20 at [place] 1999, Until Discontinu ed enoxaparin No 40mg 40 mg, Univ ers (LOVENOX) 08-02 Subcutaneo ity of injection 22:00: 12:23 us, DAILY, [place] 40 mg 00 :59 First dose Medical on [facility] 08/02/20 at 1700, Until Discontinu ed, Routine hydralAZINE Yes 10mg 10 mg, Univ ers (APRESOLINE 08-02 Slow IV ity o f ) injection 19:20: Push, [place] 10 mg 54 Q6HPRN, Medical Starting [facility] 08/02/20 at 1420, Until Discontinu ed, Routine, DBP=>100; SBP=>180, For SBP > 160
Ind ication: Hypertensi ve Emergency hydralAZINE No 10mg 10 mg, Uni vers (APRESOLINE 08-02 Slow IV ity of ) injection 19:20: 23:14 Push, [place] 10 mg 54 :59 Q6HPRN, Medical Starting [facility] 08/02/20 at 1420, Until [place] 08/05/20 at 1814, Routine, DBP=&g t;100; SBP=>180, For SBP > 160
Ind ication: Hypertensi ve Emergency omeprazole 2020- No 20mg Take 20 mg Univers 20 mg 08-02 by mouth ity of capsule 19:16: 00:00 daily. [place] 15 :00 [facility] Branch omeprazole 2020- No 20mg Take 20 mg Univers 20 mg 08-02 by mouth ity of capsule 19:16: 00:00 daily. [place] 15 :00 [facility] Branch nitroglycer Yes .4mg 0.4 mg, Uni vers in 08-02 Sublingual ity of (NITROSTAT) 19:13: , Q5MIN [place] sublingual 27 PRN, Medical tablet 0.4 Starting Branc h mg 08/02/20 at 1413, Until Discontinu ed, Routine, Chest pain nitroglycer 2020- No .4mg 0.4 mg, Un james in 08-02 Sublingual ity of (NITROSTAT) 19:13: 23:14 , Q5MIN [place] sublingual 27 :59 PRN, Medical tablet 0.4 Starting Branc h mg 08/02/20 at 1413, Until [place] 08/05/20 at 1814, Routine, Chest pain ondansetron Yes 4mg 4 mg, Slow Univers (ZOFRAN 05 IV Push, ity of (PF)) 19:10: Q6HPRN, [place] injection 4 11 Starting Medi roger mg [facility] 08/02/20 Branch at 1410, Until Discontinu ed, Routine, Nausea and Vomiting (N/V) ondansetron 2020- No 4mg 4 mg, Slow Univers (ZOFRAN 08-02 IV Push, ity of (PF)) 19:10: 23:14 Q6HPRN, [place] injection 4 11 :59 Starting Medi roger mg 08/02/20 Branch at 1410, Until [place] 08/05/20 at 1814, Routine, Nausea and Vomiting (N/V) acetaminoph 2020- No 1{tbl} 1 tablet, Univers en-codeine 08-02 Oral, ity of (TYLENOL 19:09: 17:29 Q6HPRN, [place] #3) 300-30 40 :30 Starting Medic al mg tablet 1 Sun08/02/20 Br anch tablet at 1409, Until Sun08/04/20 at 1229, Routine, Pain (scale 4-6) acetaminoph 2020- No 650mg 650 mg, U nivers en 4-05 04-07 Oral, ity of (TYLENOL) 19:09: 21:24 Q6[address]N, Court [facility] tablet 650 39 :34 Starting Medic al mg 08/02/20 Branch at 1409, Until 08/04/20 at 1624, Routine, Pain (scale 1-3) Adalimumab Yes 40mg Inject 40 [facility] 40 MG/0.4ML 3-10 mg into Colle ge PNKT 00:00: the skin of 00 every 14 Medicin days. e Adalimumab Yes 40mg Inject 40 [facility] 40 MG/0.4ML 3-10 mg into Colle ge PNKT 00:00: the skin of 00 every 14 Medicin days. e Adalimumab 2021- No 40mg Inject 40 [facility] [place] 40 MG/0.4ML 3-10 01-28 mg into [facility] PNKT 00:00: 00:00 the skin of 00 :00 every 14 Medicin days. e Adalimumab 2020- No 40mg Inject 40 [facility] [place] 40 MG/0.4ML 3-10 03-10 mg into [facility] PNKT 00:00: 00:00 the skin of 00 :00 every 14 Medicin days. e fluorouraci 2019-04 Yes Apply to [facility] l (EFUDEX) 2-18 arms twice Col lege 5 % cream 00:00: a day for of 00 2 weeks. Medicin Start 2 e weeks before next appointmen t. fluorouraci 2019- Yes Apply to [facility] l (EFUDEX) 2-18 arms twice Col lege 5 % cream 00:00: a day for of 00 2 weeks. Medicin Start 2 e weeks before next appointmen t. fluorouraci 2020- Yes Apply to [facility] (EFUDEX) 2-18 arms twice Col lege 5 % cream 00:00: a day for of 00 2 weeks. Medicin Start 2 e weeks before next appointmen t. fluorouraci 2020- Yes Apply to [facility] l (EFUDEX) 2-18 arms twice Col lege 5 % cream 00:00: a day for of 00 2 weeks. Medicin Start 2 e weeks before next appointmen t. fluorouraci 2020-1 Yes [id number] Apply to [facility] l (EFUDEX) 2-18 arms twice Col lege 5 % cream 00:00: a day for of 00 2 weeks. Medicin Start 2 e weeks before next appointmen t. CHONDROITIN 2020-0 Yes 1200mg Take 1,200 [facility] SULFATE OR 9-10 mg by College 14:32: mouth. of 48 Medicin e fexofenadin 2020-0 Yes 180mg Take 180 [facility] e (GRACIE) 9-10 mg by College 180 MG 14:32: mouth as of tablet 48 needed for Medicin Other. e atorvastati 2020-0 Yes 40mg Take 40 mg [facility] (LIPITOR) 9-10 by mouth. Col lege 40 MG 14:32: of tablet 48 Medicin e ramipril 2020-0 Yes 10mg Take 10 mg [facility] (ALTACE) 10 9-10 by mouth [facility] MG capsule 14:32: daily. of 48 Medicin e aspirin EC 2020-0 Yes 81mg Take 81 mg [facility] 81 MG 9-10 by mouth College tablet 14:32: daily. of 48 Medicin e omeprazole 2020-0 Yes 20mg Take 20 mg [facility] (PRILOSEC) 9-10 by mouth Colle ge 20 MG 14:32: daily. of capsule 48 Medicin e CHONDROITIN 2020-0 Yes 1200mg Take 1,200 [facility] SULFATE OR 9-10 mg by College 14:32: mouth. of 48 Medicin e fexofenadin 2020-0 Yes 180mg Take 180 [facility] [place] e (GRACIE) 9-10 mg by College 180 MG 14:32: mouth as of tablet 48 needed for Medicin Other. e atorvastati 2020-0 Yes 40mg Take 40 mg [facility] n (LIPITOR) 9-10 by mouth. Col lege 40 MG 14:32: of tablet 48 Medicin e ramipril 2020-0 Yes 10mg Take 10 mg [facility] (ALTACE) 10 9-10 by mouth [place] [facility] MG capsule 14:32: daily. of 48 Medicin e aspirin EC 2020-0 Yes 81mg Take 81 mg [facility] [place] 81 MG 9-10 by mouth College tablet 14:32: daily. of 48 Medicin e omeprazole 2020-0 Yes 20mg Take 20 mg [facility] (PRILOSEC) 9-10 by mouth Colle ge 20 MG 14:32: daily. of capsule 48 Medicin e CHONDROITIN 2020-0 Yes 1200mg Take 1,200 [facility] SULFATE OR 9-10 mg by College 14:32: mouth. of 48 Medicin e fexofenadin 2020-0 Yes 180mg Take 180 [facility] [place] e (GRACIE) 9-10 mg by [facility] 180 MG 14:32: mouth as of tablet 48 needed for Medicin Other. e atorvastati 2020-0 Yes 40mg Take 40 mg [facility] n (LIPITOR) 9-10 by mouth. Col lege 40 MG 14:32: of tablet 48 Medicin e ramipril 2020-0 Yes 10mg Take 10 mg [facility] (ALTACE) 10 9-10 by mouth [place] [facility] MG capsule 14:32: daily. of 48 Medicin e aspirin EC 2020-0 Yes 81mg Take 81 mg [facility] 81 MG 9-10 by mouth College tablet 14:32: daily. of 48 Medicin e omeprazole 2020-0 Yes 20mg Take 20 mg [facility] (PRILOSEC) 9-10 by mouth Colle ge 20 MG 14:32: daily. of capsule 48 Medicin e CHONDROITIN 2020-0 Yes 1200mg Take 1,200 [facility] SULFATE OR 9-10 mg by [place] 14:32: mouth. of 48 Medicin e fexofenadin 2020-0 Yes 180mg Take 180 [facility] e (GRACIE) 9-10 mg by [place] 180 MG 14:32: mouth as of tablet 48 needed for Medicin Other. e atorvastati 2020-0 Yes 40mg Take 40 mg [facility] n (LIPITOR) 9-10 by mouth. Col lege 40 MG 14:32: of tablet 48 Medicin e ramipril 2020-0 Yes 10mg Take 10 mg [facility] (ALTACE) 10 9-10 by mouth [place] [facility] MG capsule 14:32: daily. of 48 Medicin e aspirin EC 2020-0 Yes 81mg Take 81 mg [facility] [place] 81 MG 9-10 by mouth College tablet 14:32: daily. of 48 Medicin e omeprazole 2020-0 Yes 20mg Take 20 mg [facility] (PRILOSEC) 9-10 by mouth Colle ge 20 MG 14:32: daily. of capsule 48 Medicin e CHONDROITIN 2020-0 Yes 1200mg Take 1,200 [facility] SULFATE OR 9-10 mg by College 14:32: mouth. of 48 Medicin e fexofenadin 2020-0 Yes 180mg Take 180 [facility] [place] e (GRACIE) 9-10 mg by [facility] 180 MG 14:32: mouth as of tablet 48 needed for Medicin Other. e atorvastati 2020-0 Yes 40mg Take 40 mg [facility] n (LIPITOR) 9-10 by mouth. Col lege 40 MG 14:32: of tablet 48 Medicin e ramipril 2020-0 Yes 10mg Take 10 mg [facility] (ALTACE) 10 9-10 by mouth [place] [facility] MG capsule 14:32: daily. of 48 Medicin e aspirin EC 2020-0 Yes 81mg Take 81 mg [facility] [place] 81 MG 9-10 by mouth College tablet 14:32: daily. of 48 Medicin e omeprazole 2020-0 Yes 20mg Take 20 mg [facility] (PRILOSEC) 9-10 by mouth Colle ge 20 MG 14:32: daily. of capsule 48 Medicin e vitamin B 2020-0 Yes 2{tbl} Take 2 Univ ers complex vit 6-19 tablets by it y of C no.4 14:00: mouth [place] (SUPER B 36 daily. Medical COMPLEX + C Branch ORAL) vitamin B 2020-0 Yes 2{tbl} Take 2 Univ ers complex vit 6-19 tablets by it y of C no.4 14:00: mouth [place] (SUPER B 36 daily. Medical COMPLEX + C Branch ORAL) vitamin B 2020-0 Yes 2{tbl} Take 2 Univ ers complex vit 6-19 tablets by it y of C no.4 14:00: mouth [place] (SUPER B 36 daily. Medical COMPLEX + C Branch ORAL) vitamin B 2020-0 Yes 2{tbl} Take 2 Univ ers complex vit 6-19 tablets by it y of C no.4 14:00: mouth [place] (SUPER B 36 daily. Medical COMPLEX + C Branch ORAL) vitamin B 2020-0 Yes 2{tbl} Take 2 Univ ers complex vit 6-19 tablets by it y of C no.4 14:00: mouth [place] (SUPER B 36 daily. Medical COMPLEX + C Branch ORAL) vitamin B 2020-0 Yes 2{tbl} Take 2 Univ ers complex vit 6-19 tablets by it y of C no.4 14:00: mouth [place] (SUPER B 36 daily. Medical COMPLEX + C Branch ORAL) vitamin B 2020-0 Yes 2{tbl} Take 2 Univ ers complex vit 6-19 tablets by it y of C no.4 14:00: mouth [place] (SUPER B 36 daily. Medical COMPLEX + C Branch ORAL) vitamin B 2020-0 Yes 2{tbl} Take 2 Univ ers complex vit 6-19 tablets by it y of C no.4 14:00: mouth [place] (SUPER B 36 daily. Medical COMPLEX + C Branch ORAL) vitamin B 2020-0 Yes 2{tbl} Take 2 Univ ers complex vit 6-19 tablets by it y of C no.4 14:00: mouth [place] (SUPER B 36 daily. Medical COMPLEX + C Branch ORAL) rosuvastati 2020-0 Yes 10mg Take 10 mg Univers n (CRESTOR) 6-19 by mouth ity of 10 mg 13:51: at [place] tablet 04 bedtime. Medical Branch ramipril 10 2020-0 Yes 10mg Take 10 mg Univers mg capsule 6-19 by mouth ity o f 13:51: daily. [address] Branch aspirin 81 2020-0 Yes 81mg Take 81 mg U nivers mg chewable 6-19 by mouth ity of tablet 13:51: daily. [address] Branch omeprazole 2020-0 Yes 20mg Take 20 mg U nivers 20 mg 6-19 by mouth ity of capsule 13:51: daily. [place] [address] Medical Branch docosahexan 2020-0 Yes 1{capsu Take 1 U nivers oic 6-19 le} capsule by ity of acid/epa 13:51: mouth [place] (FISH OIL 04 daily. Medical ORAL) Branch ergocalcife 2020-0 Yes 500mg Take 500 U nivers rol, 6-19 mg by ity of vitamin D2, 13:51: mouth [place] (VITAMIN D 04 daily. Medical ORAL) Branch gluc 2020-0 Yes 2{tbl} Take 2 Univers sainz/chondro 6-19 tablets by ity of sainz A/vit 13:51: mouth. [place] C/Mn 04 Medical (GLUCOSAMIN Branch E 1500 COMPLEX ORAL) chondroitin 2020-0 Yes 2400mg Take 2,400 Univers sulfate A 6-19 mg by ity of sodium 13:51: mouth [place] (CHONDROITI 04 daily. Medica l N SULFATE Branch ORAL) fexofenadin 2020-0 Yes 180mg Take 180 U nivers e 180 mg 6-19 mg by ity of tablet 13:51: mouth [place] 04 daily. Medical Branch ibuprofen 2020-0 Yes 200mg Take 200 Uni vers 200 mg 6-19 mg by ity of tablet 13:51: mouth [place] 04 every 6 Medical (six) Branch hours as needed. rosuvastati 2020-0 Yes 10mg Take 10 mg Univers n (CRESTOR) 6-19 by mouth ity of 10 mg 13:51: at [place] tablet 04 bedtime. Medical Branch ramipril 10 2020-0 Yes 10mg Take 10 mg Univers mg capsule 6-19 by mouth ity o f 13:51: daily. [place] [address] Medical Branch aspirin 81 2020-0 Yes 81mg Take 81 mg U nivers mg chewable 6-19 by mouth ity of tablet 13:51: daily. [place] [address] Medical Branch omeprazole 2020-0 Yes 20mg Take 20 mg U nivers 20 mg 6-19 by mouth ity of capsule 13:51: daily. [place] [address] Medical Branch docosahexan 2020-0 Yes 1{capsu Take 1 U nivers oic 6-19 le} capsule by ity of acid/epa 13:51: mouth [place] (FISH OIL 04 daily. Medical ORAL) Branch ergocalcife 2020-0 Yes 500mg Take 500 U nivers rol, 6-19 mg by ity of vitamin D2, 13:51: mouth [place] (VITAMIN D 04 daily. Medical ORAL) Branch gluc 2020-0 Yes 2{tbl} Take 2 Univers sainz/chondro 6-19 tablets by ity of sainz A/vit 13:51: mouth. [place] C/Mn 04 Medical (GLUCOSAMIN Branch E 1500 COMPLEX ORAL) chondroitin 2020-0 Yes 2400mg Take 2,400 Univers sulfate A 6-19 mg by ity of sodium 13:51: mouth [place] (CHONDROITI 04 daily. Medica l N SULFATE Branch ORAL) fexofenadin 2020-0 Yes 180mg Take 180 U nivers e 180 mg 6-19 mg by ity of tablet 13:51: mouth [place] 04 daily. Medical Branch ibuprofen 2020-0 Yes 200mg Take 200 Uni vers 200 mg 6-19 mg by ity of tablet 13:51: mouth [place] 04 every 6 Medical (six) Branch hours as needed. rosuvastati 2020-0 Yes 10mg Take 10 mg Univers n (CRESTOR) 6-19 by mouth ity of 10 mg 13:51: at [place] tablet 04 bedtime. Medical Branch ramipril 10 2019-0 Yes 10mg Take 10 mg Univers mg capsule 6-19 by mouth ity o f 13:51: daily. [place] [address] Medical Branch aspirin 81 2020-0 Yes 81mg Take 81 mg U nivers mg chewable 6-19 by mouth ity of tablet 13:51: daily. [place] [address] Medical Branch omeprazole 2019-0 Yes 20mg Take 20 mg U nivers 20 mg 6-19 by mouth ity of capsule 13:51: daily. [place] [address] Medical Branch docosahexan 2020-0 Yes 1{capsu Take 1 U nivers oic 6-19 le} capsule by ity of acid/epa 13:51: mouth [place] (FISH OIL 04 daily. Medical ORAL) Branch ergocalcife 2019-0 Yes 500mg Take 500 U nivers rol, 6-19 mg by ity of vitamin D2, 13:51: mouth [place] (VITAMIN D 04 daily. Medical ORAL) Branch gluc 2019-0 Yes 2{tbl} Take 2 Univers sainz/chondro 6-19 tablets by ity of sainz A/vit 13:51: mouth. [place] C/Mn 04 Medical (GLUCOSAMIN Branch E 1500 COMPLEX ORAL) chondroitin 2020-0 Yes 2400mg Take 2,400 Univers sulfate A 6-19 mg by ity of sodium 13:51: mouth [place] (CHONDROITI 04 daily. Medica l N SULFATE Branch ORAL) fexofenadin 2020-0 Yes 180mg Take 180 U nivers e 180 mg 6-19 mg by ity of tablet 13:51: mouth [place] 04 daily. Medical Branch ibuprofen 2020-0 Yes 200mg Take 200 Uni vers 200 mg 6-19 mg by ity of tablet 13:51: mouth [place] 04 every 6 Medical (six) Branch hours as needed. rosuvastati 2020-0 Yes 10mg Take 10 mg Univers n (CRESTOR) 6-19 by mouth ity of 10 mg 13:51: at [place] tablet 04 bedtime. Medical Branch ramipril 10 2019-0 Yes 10mg Take 10 mg Univers mg capsule 6-19 by mouth ity o f 13:51: daily. [place] [address] Medical Branch aspirin 81 2019-0 Yes 81mg Take 81 mg U nivers mg chewable 6-19 by mouth ity of tablet 13:51: daily. [place] [address] Medical Branch omeprazole 2020-0 Yes 20mg Take 20 mg U nivers 20 mg 6-19 by mouth ity of capsule 13:51: daily. [place] [address] Medical Branch docosahexan 2020-0 Yes 1{capsu Take 1 U nivers oic 6-19 le} capsule by ity of acid/epa 13:51: mouth [place] (FISH OIL 04 daily. Medical ORAL) Branch ergocalcife 2020-0 Yes 500mg Take 500 U nivers rol, 6-19 mg by ity of vitamin D2, 13:51: mouth [place] (VITAMIN D 04 daily. Medical ORAL) Branch gluc 2020-0 Yes 2{tbl} Take 2 Univers sainz/chondro 6-19 tablets by ity of sainz A/vit 13:51: mouth. [place] C/Ky 04 Medical (GLUCOSAMIN Branch E 1500 COMPLEX ORAL) chondroitin 2020-0 Yes 2400mg Take 2,400 Univers sulfate A 6-19 mg by ity of sodium 13:51: mouth [place] (CHONDROITI 04 daily. Medica l N SULFATE Branch ORAL) fexofenadin 2020-0 Yes 180mg Take 180 U nivers e 180 mg 6-19 mg by ity of tablet 13:51: mouth [place] 04 daily. Medical Branch ibuprofen 2020-0 Yes 200mg Take 200 Uni vers 200 mg 6-19 mg by ity of tablet 13:51: mouth [place] 04 every 6 Medical (six) Branch hours as needed. rosuvastati 2020-0 Yes 10mg Take 10 mg Univers n (CRESTOR) 6-19 by mouth ity of 10 mg 13:51: at [place] tablet 04 bedtime. Medical Branch ramipril 10 2020-0 Yes 10mg Take 10 mg Univers mg capsule 6-19 by mouth ity o f 13:51: daily. [place] [address] Medical Branch aspirin 81 2020-0 Yes 81mg Take 81 mg U nivers mg chewable 6-19 by mouth ity of tablet 13:51: daily. [place] [address] Medical Branch omeprazole 2020-0 Yes 20mg Take 20 mg U nivers 20 mg 6-19 by mouth ity of capsule 13:51: daily. [place] [address] Medical Branch docosahexan 2020-0 Yes 1{capsu Take 1 U nivers oic 6-19 le} capsule by ity of acid/epa 13:51: mouth [place] (FISH OIL 04 daily. Medical ORAL) Branch ergocalcife 2020-0 Yes 500mg Take 500 U nivers rol, 6-19 mg by ity of vitamin D2, 13:51: mouth [place] (VITAMIN D 04 daily. Medical ORAL) Branch gluc 2020-0 Yes 2{tbl} Take 2 Univers sainz/chondro 6-19 tablets by ity of sainz A/vit 13:51: mouth. [place] C/Mn 04 Medical (GLUCOSAMIN Branch E 1500 COMPLEX ORAL) chondroitin 2020-0 Yes 2400mg Take 2,400 Univers sulfate A 6-19 mg by ity of sodium 13:51: mouth [place] (CHONDROITI 04 daily. Medica l N SULFATE Branch ORAL) fexofenadin 2020-0 Yes 180mg Take 180 U nivers e 180 mg 6-19 mg by ity of tablet 13:51: mouth [place] 04 daily. Medical Branch ibuprofen 2020-0 Yes 200mg Take 200 Uni vers 200 mg 6-19 mg by ity of tablet 13:51: mouth [place] 04 every 6 Medical (six) Branch hours as needed. rosuvastati 2020-0 Yes 10mg Take 10 mg Univers n (CRESTOR) 6-19 by mouth ity of 10 mg 13:51: at [place] tablet 04 bedtime. Medical Branch ramipril 10 2020-0 Yes 10mg Take 10 mg Univers mg capsule 6-19 by mouth ity o f 13:51: daily. [place] [address] Medical Branch aspirin 81 2020-0 Yes 81mg Take 81 mg U nivers mg chewable 6-19 by mouth ity of tablet 13:51: daily. [place] [address] Medical Branch omeprazole 2020-0 Yes 20mg Take 20 mg U nivers 20 mg 6-19 by mouth ity of capsule 13:51: daily. [place] [address] Medical Branch docosahexan 2020-0 Yes 1{capsu Take 1 U nivers oic 6-19 le} capsule by ity of acid/epa 13:51: mouth [place] (FISH OIL 04 daily. Medical ORAL) Branch ergocalcife 2020-0 Yes 500mg Take 500 U nivers rol, 6-19 mg by ity of vitamin D2, 13:51: mouth [place] (VITAMIN D 04 daily. Medical ORAL) Branch gluc 2020-0 Yes 2{tbl} Take 2 Univers sainz/chondro 6-19 tablets by ity of sainz A/vit 13:51: mouth. [place] C/Mn 04 Medical (GLUCOSAMIN Branch E 1500 COMPLEX ORAL) chondroitin 2020-0 Yes 2400mg Take 2,400 Univers sulfate A 6-19 mg by ity of sodium 13:51: mouth [place] (CHONDROITI 04 daily. Medica l N SULFATE Branch ORAL) fexofenadin 2020-0 Yes 180mg Take 180 U nivers e 180 mg 6-19 mg by ity of tablet 13:51: mouth [place] 04 daily. Medical Branch ibuprofen 2020-0 Yes 200mg Take 200 Uni vers 200 mg 6-19 mg by ity of tablet 13:51: mouth [place] 04 every 6 Medical (six) Branch hours as needed. rosuvastati 2020-0 Yes 10mg Take 10 mg Univers n (CRESTOR) 6-19 by mouth ity of 10 mg 13:51: at [place] tablet 04 bedtime. Medical Branch ramipril 10 2020-0 Yes 10mg Take 10 mg Univers mg capsule 6-19 by mouth ity o f 13:51: daily. [place] [address] Medical Branch aspirin 81 2020-0 Yes 81mg Take 81 mg U nivers mg chewable 6-19 by mouth ity of tablet 13:51: daily. [place] [address] Medical Branch omeprazole 2020-0 Yes 20mg Take 20 mg U nivers 20 mg 6-19 by mouth ity of capsule 13:51: daily. [place] [place] [address] [facility] docosahexan 2020-0 Yes 1{capsu Take 1 U nivers oic 6-19 le} capsule by ity of acid/epa 13:51: mouth [place] (FISH OIL 04 daily. Medical ORAL) Branch ergocalcife 2020-0 Yes 500mg Take 500 U nivers rol, 6-19 mg by ity of vitamin D2, 13:51: mouth [place] (VITAMIN D 04 daily. Medical ORAL) Branch gluc 2020-0 Yes 2{tbl} Take 2 Univers sainz/chondro 6-19 tablets by ity of sainz A/vit 13:51: mouth. [place] Medical (GLUCOSAMIN Branch E 1500 COMPLEX ORAL) chondroitin 2020-0 Yes 2400mg Take 2,400 Univers sulfate A 6-19 mg by ity of sodium 13:51: mouth [place] (CHONDROITI 04 daily. Medica l N SULFATE Branch ORAL) fexofenadin 2020-0 Yes 180mg Take 180 U nivers e 180 mg 6-19 mg by ity of tablet 13:51: mouth [place] 04 daily. Medical Branch ibuprofen 2020-0 Yes 200mg Take 200 Uni vers 200 mg 6-19 mg by ity of tablet 13:51: mouth [place] 04 every 6 Medical (six) Branch hours as needed. rosuvastati 2020-0 Yes 10mg Take 10 mg Univers n (CRESTOR) 6-19 by mouth ity of 10 mg 13:51: at [place] tablet 04 bedtime. Medical Branch ramipril 10 2020-0 Yes 10mg Take 10 mg [facility] mg capsule 6-19 by mouth ity o f 13:51: daily. [place] [address] [facility] aspirin 81 2020-0 Yes 81mg Take 81 mg U nivers mg chewable 6-19 by mouth ity of tablet 13:51: daily. [place] [address] [facility] omeprazole 2020-0 Yes 20mg Take 20 mg U nivers 20 mg 6-19 by mouth ity of capsule 13:51: daily. [place] [address] [facility] docosahexan 2020-0 Yes 1{capsu Take 1 U nivers oic 6-19 le} capsule by ity of acid/epa 13:51: mouth [place] (FISH OIL 04 daily. Medical ORAL) Branch ergocalcife 2020-0 Yes 500mg Take 500 U nivers rol, 6-19 mg by ity of vitamin D2, 13:51: mouth [place] (VITAMIN D 04 daily. Medical ORAL) Branch gluc 2020-0 Yes 2{tbl} Take 2 [facility] sainz/chondro 6-19 tablets by ity of sainz A/vit 13:51: mouth. [place] C/Mn 04 Medical (GLUCOSAMIN Branch E 1500 COMPLEX ORAL) chondroitin 2020-0 Yes 2400mg Take 2,400 [facility] sulfate A 6-19 mg by ity of sodium 13:51: mouth [place] (CHONDROITI 04 daily. Medica l N SULFATE Branch ORAL) fexofenadin 2020-0 Yes 180mg Take 180 U nivers e 180 mg 6-19 mg by ity of tablet 13:51: mouth [place] 04 daily. Medical Branch ibuprofen 2020-0 Yes 200mg Take 200 Uni vers 200 mg 6-19 mg by ity of tablet 13:51: mouth [place] 04 every 6 Medical (six) Branch hours as needed. rosuvastati 2020-0 Yes 10mg Take 10 mg [facility] n (CRESTOR) 6-19 by mouth ity of 10 mg 13:51: at [place] tablet 04 bedtime. Medical Branch ramipril 10 2020-0 Yes 10mg Take 10 mg [facility] mg capsule 6-19 by mouth ity o f 13:51: daily. [place] [address] [facility] aspirin 81 2020-0 Yes 81mg Take 81 mg U nivers mg chewable 6-19 by mouth ity of tablet 13:51: daily. [place] [address] [facility] omeprazole 2020-0 Yes 20mg Take 20 mg U nivers 20 mg 6-19 by mouth ity of capsule 13:51: daily. [place] [address] [facility] Branch docosahexan 2020-0 Yes 1{capsu Take 1 U nivers oic 6-19 le} capsule by ity of acid/epa 13:51: mouth [place] (FISH OIL 04 daily. Medical ORAL) Branch ergocalcife 2020-0 Yes 500mg Take 500 U nivers rol, 6-19 mg by ity of vitamin D2, 13:51: mouth [place] (VITAMIN D 04 daily. Medical ORAL) Branch gluc 2020-0 Yes 2{tbl} Take 2 [facility] sainz/chondro 6-19 tablets by ity of sainz A/vit 13:51: mouth. [place] C/Mn 04 Medical (GLUCOSAMIN Branch E 1500 COMPLEX ORAL) chondroitin 2020-0 Yes 2400mg Take 2,400 [facility] sulfate A 6-19 mg by ity of sodium 13:51: mouth [place] (CHONDROITI 04 daily. Medica l N SULFATE Branch ORAL) fexofenadin 2020-0 Yes 180mg Take 180 U nivers e 180 mg 6-19 mg by ity of tablet 13:51: mouth [place] 04 daily. Medical Branch ibuprofen 2020-0 Yes 200mg Take 200 Uni vers 200 mg 6-19 mg by ity of tablet 13:51: mouth [place] 04 every 6 Medical (six) Branch hours as needed. CHONDROITIN 2020-0 Yes 1200mg Take 1,200 [facility] SULFATE OR 6-04 mg by College 18:19: mouth. of 19 Medicin e fexofenadin 2020-0 Yes 180mg Take 180 [facility] (GRACIE) 6-04 mg by College 180 MG 18:19: mouth as of tablet 19 needed for Medicin Other. e atorvastati 2020-0 Yes 40mg Take 40 mg [facility] (LIPITOR) 6-04 by mouth. Col lege 40 MG 18:19: of tablet 19 Medicin e ramipril 2020-0 Yes 10mg Take 10 mg [facility] (ALTACE) 10 6-04 by mouth [facility] MG capsule 18:19: daily. of 19 Medicin e aspirin EC 2020-0 Yes 81mg Take 81 mg [facility] 81 MG 6-04 by mouth College tablet 18:19: daily. of 19 Medicin e omeprazole 2020-0 Yes 20mg Take 20 mg [facility] (PRILOSEC) 6-04 by mouth Colle ge 20 MG 18:19: daily. of capsule 19 Medicin e aspirin 81 2020-0 2020- No 81mg Take 81 mg [facility] MG tablet 6-04 06-04 by mouth Colle ge 18:19: 00:00 daily. of 19 :00 Medicin e rosuvastati 2020-0 Yes 10mg Take 10 mg Univers n (CRESTOR) 5-01 by mouth ity of 10 mg 13:56: at [place] tablet 10 bedtime. Medical Branch ramipril 10 2020-0 Yes 10mg Take 10 mg [facility] mg capsule 5-01 by mouth ity o f 13:56: daily. [address] Branch aspirin 81 2020-0 Yes 81mg Take 81 mg U nivers mg chewable 5-01 by mouth ity of tablet 13:56: daily. [address] Branch omeprazole 2020-0 Yes 20mg Take 20 mg U nivers 20 mg 5-01 by mouth ity of capsule 13:56: daily. [place] [address] Medical Branch docosahexan 2020-0 Yes 1{capsu Take 1 U nivers oic 5-01 le} capsule by ity of acid/epa 13:56: mouth [place] (FISH OIL 10 daily. Medical ORAL) Branch ergocalcife 2020-0 Yes 500mg Take 500 U nivers rol, 5-01 mg by ity of vitamin D2, 13:56: mouth [place] (VITAMIN D 10 daily. Medical ORAL) Branch gluc 2020-0 Yes 2{tbl} Take 2 [facility] sainz/chondro 5-01 tablets by ity of sainz A/vit 13:56: mouth. [place] C/Mn 10 Medical (GLUCOSAMIN Branch E 1500 COMPLEX ORAL) chondroitin 2020-0 Yes 2400mg Take 2,400 [facility] sulfate A 5-01 mg by ity of sodium 13:56: mouth [place] (CHONDROITI 10 daily. Medica l N SULFATE Branch ORAL) fexofenadin 2020-0 Yes 180mg Take 180 U nivers e 180 mg 5-01 mg by ity of tablet 13:56: mouth [place] 10 daily. Medical Branch ibuprofen 2020-0 Yes 200mg Take 200 Uni vers 200 mg 5-01 mg by ity of tablet 13:56: mouth [place] 10 every 6 Medical (six) Branch hours as needed. lactated 2020-0 Yes 1000mL at 75 Univer s ringers IV 5-01 mL/hr, ity of infusion 13:00: 1,000 [place], [place] 1[place]000 [place] 00 IV Medical Infusion, Branch CONTINUOUS , Starting Sun08/29/19 at 0800, Until Discontinu ed, Routine, PACU HYDROmorpho 2020-0 Yes .2mg 0.2 mg, Uni vers ne 5-01 Slow IV ity of (DILAUDID) 12:50: Push, [place] injection 23 Q5MIN PRN, Medi roger 0.2 mg 10 doses, Branch Starting Sun08/29/19 at 0750, Until Discontinu ed, Routine, Pain (scale 7-10), PACU
Us e approved by (Faculty): PACU USE -ANESTHESI A SERVICE-HY DROMORPHON E INJECTIONS FENTanyl PF 2019-0 Yes 25ug 25 mcg, Uni vers (SUBLIMAZE 5-01 Slow IV ity of (PF)) 12:50: Push, [place] injection 23 Q5MIN PRN, Medi roger 25 mcg 4 doses, Branch Starting Sun08/29/19 at 0750, Until Discontinu ed, Routine, Pain (scale 4-6), PACU ondansetron 2019-0 Yes 4mg 4 mg, Slow Univers (ZOFRAN 5- IV Push, ity of (PF)) 12:50: PRN, 1 [place] injection 4 23 dose, Medical mg Starting Branch Sun08/29/19 at 0750, Until Discontinu ed, Routine, Nausea and Vomiting (N/V), PACU rosuvastati 2020-0 Yes 10mg Take 10 mg Univers n (CRESTOR) 5-01 by mouth ity of 10 mg 12:33: at [place] tablet 17 bedtime. Medical Branch ramipril 10 2019-0 Yes 10mg Take 10 mg Univers mg capsule 5-01 by mouth ity o f 12:33: daily. [place] 17 Medical Branch aspirin 81 2020-0 Yes 81mg Take 81 mg U nivers mg chewable 5-01 by mouth ity of tablet 12:33: daily. [place] [address] Medical Branch omeprazole 2020-0 Yes 20mg Take 20 mg U nivers 20 mg 5-01 by mouth ity of capsule 12:33: daily. [place] [address] Medical Branch docosahexan 2020-0 Yes 1{capsu Take 1 U nivers oic 5-01 le} capsule by ity of acid/epa 12:33: mouth [place] (FISH OIL 17 daily. Medical ORAL) Branch ergocalcife 2020-0 Yes 500mg Take 500 U nivers rol, 5-01 mg by ity of vitamin D2, 12:33: mouth [place] (VITAMIN D 17 daily. Medical ORAL) Branch gluc 2020-0 Yes 2{tbl} Take 2 Univers sainz/chondro 5-01 tablets by ity of sainz A/vit 12:33: mouth. [place] 17 Medical (GLUCOSAMIN Branch E 1500 COMPLEX ORAL) chondroitin 2020-0 Yes 2400mg Take 2,400 Univers sulfate A 5-01 mg by ity of sodium 12:33: mouth [place] (CHONDROITI 17 daily. Medica l N SULFATE Branch ORAL) fexofenadin 2020-0 Yes 180mg Take 180 U nivers e 180 mg 5-01 mg by ity of tablet 12:33: mouth [place] 17 daily. Medical Branch ibuprofen 2020-0 Yes 200mg Take 200 Uni vers 200 mg 5-01 mg by ity of tablet 12:33: mouth [place] 17 every 6 Medical (six) Branch hours as needed. ondansetron 2019-0 2020- No Slow IV Un james (ZOFRAN 08-28 Push, ONCE ity o f (PF)) 12:10: 13:29 INTRA [place] injection 00 :21 PROCEDURE, [facility] roger Starting Branch Sun08/29/19 at 0710, Until Sun08/29/19 at 0829, Routine, Intra-op HYDROmorphO 2020-0 2020- No Intravenou Univers ne 08-28 s, ONCE ity of (DILAUDID) 12:09: 13:29 INTRA [place] injection 00 :21 PROCEDURE, [facility] roger Starting Branch Sun08/29/19 at 0709, Until Sun08/29/19 at 0829, Routine, Intra-op ePHEDrine 2019-0 2020- No ONCE INTRA U nivers 25 mg/5 mL 08-28 PROCEDURE, it y of (5 mg/mL) 12:04: 13:29 Starting [place] as syringe 00 :21 Sun08/29/19 Medica l at 0704, Branch Until Sun08/29/19 at 0829, Routine, Intra-op ceFAZolin 2019-0 2020- No ONCE INTRA U nivers (ANCEF) 08-28 PROCEDURE, ity o f injection 12:00: 13:29 Starting [place] as 00 :21 Sun08/29/19 Medical at 0700, Branch Until Sun08/29/19 at 0829, EDITH, Intra-op dexamethaso 0 2020- No Intravenou Univers ne 08-28 s, ONCE ity of (DECADRON 12:00: 13:29 INTRA [place] PHOSPHATE) 00 :21 PROCEDURE, Med ical injection Starting Branch Sun08/29/19 at 0700, Until Sun08/29/19 at 0829, Routine, Intra-op propofol IV 2019-0 2020- No Intravenou Univers infusion 08-28 s, ONCE ity of 11:53: 13:29 INTRA [place] 00 :21 PROCEDURE, Medical Starting Branch Sun08/29/19 at 0653, Until Sun08/29/19 at 08, Routine, Intra-op lidocaine 2019-0 2019- No ONCE INTRA U nivers 1% 08-28 PROCEDURE, ity of (XYLOCAINE) 11:53: 13:29 Starting [place] 100 mg/10 00 :21 Sun08/29/19 Medi roger mL (1 %) at 0653, Branch injection Until Sun08/29/19 at 0829, Routine, Intra-op FENTanyl PF 0 2020- No Intravenou Univers (SUBLIMAZE 08-28 s, ONCE ity o f (PF)) 11:53: 13:29 INTRA [place] injection 00 :21 PROCEDURE, Medi roger Starting Branch Sun08/29/19 at 0653, Until Sun08/29/19 at 0829, Routine, Intra-op lactated 2019-0 2020- No IV Univers ringers IV 08-28 Infusion, ity of infusion 11:41: 13:29 CONTINUOUS [place] 00 :21 PRN, Medical Starting Branch Sun08/29/19 at 0641, Until 5/1/20 at 0829, Routine, Intra-op lactated 2020-0 2020- No 1000mL at 20 Unive rs ringers IV 5- 05-01 mL/hr, ity of infusion 11:30: 11:30 1,000 mL, [place] 1,000 mL 00 :00 IV Medical Infusion, Branch ONCE, 1 dose, Sun08/29/19 at 0630, Routine, DSU Pre-op ceFAZolin 2020-0 Yes 1000mg 1,000 mg, U nivers (ANCEF) 5-01 IV ity of 1,000 mg in 11:08: Piggyback, [place] NaCl 0.9% 35 O.R. Medical (NS) 50 mL HOLDING Branch MINI-BAG ONCE, 1 dose, Starting Sun08/29/19 at 0608, Until Discontinu ed, 50 mL, DSU Pre-op
Reason for Anti-Infec tive: Surgical Prophylaxi s
Surgi roger Prophylaxi s: Orthopaedi c
Durat ion of therapy: within 24 hours of surgery ibuprofen 2020-0 Yes 200mg Take 200 Uni vers 200 mg 4-29 mg by ity of tablet 18:23: mouth [place] 54 every 6 Medical (six) Branch hours as needed. docosahexan 2020-0 Yes 1{capsu Take 1 U nivers oic 4-29 le} capsule by ity of acid/epa 18:23: mouth [place] (FISH OIL 54 daily. Medical ORAL) Branch ergocalcife 2020-0 Yes 500mg Take 500 U nivers rol, 4-29 mg by ity of vitamin D2, 18:23: mouth [place] (VITAMIN D 54 daily. Medical ORAL) Branch gluc 2020-0 Yes 2{tbl} Take 2 Univers sainz/chondro 4-29 tablets by ity of sainz A/vit 18:23: mouth. [place] C/Mn 54 Medical (GLUCOSAMIN Branch E 1500 COMPLEX ORAL) chondroitin 2020-0 Yes 2400mg Take 2,400 Univers sulfate A 4-29 mg by ity of sodium 18:23: mouth [place] (CHONDROITI 54 daily. Medica l N SULFATE Branch ORAL) fexofenadin 2020-0 Yes 180mg Take 180 U nivers e 180 mg 4-29 mg by ity of tablet 18:23: mouth [place] 54 daily. Medical Branch ibuprofen 2020-0 Yes 200mg Take 200 Uni vers 200 mg 4-29 mg by ity of tablet 18:23: mouth [place] 54 every 6 Medical (six) Branch hours as needed. docosahexan 2020-0 Yes 1{capsu Take 1 U nivers oic 4-29 le} capsule by ity of acid/epa 18:23: mouth [place] (FISH OIL 54 daily. Medical ORAL) Branch ergocalcife 2020-0 Yes 500mg Take 500 U nivers rol, 4-29 mg by ity of vitamin D2, 18:23: mouth [place] (VITAMIN D 54 daily. Medical ORAL) Branch gluc 2020-0 Yes 2{tbl} Take 2 Univers sainz/chondro 4-29 tablets by ity of sainz A/vit 18:23: mouth. [place] C/Mn 54 Medical (GLUCOSAMIN Branch E 1500 COMPLEX ORAL) chondroitin 2020-0 Yes 2400mg Take 2,400 Univers sulfate A 4-29 mg by ity of sodium 18:23: mouth [place] (CHONDROITI 54 daily. Medica l N SULFATE Branch ORAL) fexofenadin 2020-0 Yes 180mg Take 180 U nivers e 180 mg 4-29 mg by ity of tablet 18:23: mouth [place] 54 daily. Medical Branch rosuvastati 2019-0 Yes 10mg Take 10 mg Univers n (CRESTOR) 4-29 by mouth ity of 10 mg 18:23: at [place] tablet 53 bedtime. Medical Branch ramipril 10 2019-0 Yes 10mg Take 10 mg Univers mg capsule 4-29 by mouth ity o f 18:23: daily. [place] [address] Medical Branch aspirin 81 2020-0 Yes 81mg Take 81 mg U nivers mg chewable 4-29 by mouth ity of tablet 18:23: daily. [place] [address] Medical Branch omeprazole 2020-0 Yes 20mg Take 20 mg U nivers 20 mg 4-29 by mouth ity of capsule 18:23: daily. [place] [address] Medical Branch rosuvastati 2020-0 Yes 10mg Take 10 mg Univers n (CRESTOR) 4-29 by mouth ity of 10 mg 18:23: at [place] tablet 53 bedtime. Medical Branch ramipril 10 2020-0 Yes 10mg Take 10 mg Univers mg capsule 4-29 by mouth ity o f 18:23: daily. [address] Branch aspirin 81 2020-0 Yes 81mg Take 81 mg U nivers mg chewable 4-29 by mouth ity of tablet 18:23: daily. [address] omeprazole 2020-0 Yes 20mg Take 20 mg U nivers 20 mg 4-29 by mouth ity of capsule 18:23: daily. [address] rosuvastati 2020-0 Yes 10mg Take 10 mg [facility] (CRESTOR) 3-22 by mouth [place] 10 MG 00:00: daily. of tablet 00 Medicin e rosuvastati 2020-0 Yes 10mg Take 10 mg [facility] n (CRESTOR) 3-22 by mouth [place] [facility] 10 MG 00:00: daily. of tablet 00 Medicin e rosuvastati 2020-0 Yes 10mg Take 10 mg [facility] n (CRESTOR) 3-22 by mouth [place] [facility] 10 MG 00:00: daily. of tablet 00 Medicin e rosuvastati 2020-0 Yes 10mg Take 10 mg [facility] n (CRESTOR) 3-22 by mouth [facility] 10 MG 00:00: daily. of tablet 00 Medicin e rosuvastati 2020-0 Yes 10mg Take 10 mg [facility] n (CRESTOR) 3-22 by mouth [facility] 10 MG 00:00: daily. of tablet 00 Medicin e rosuvastati 2020-0 Yes 10mg Take 10 mg [facility] n (CRESTOR) 3-22 by mouth [facility] 10 MG 00:00: daily. of tablet 00 Medicin e rosuvastati 2020-0 Yes 10mg Take 10 mg [facility] n (CRESTOR) 3-22 by mouth [facility] 10 MG 00:00: daily. of tablet 00 Medicin e rosuvastati 2019-0 Yes 10mg Take 10 mg [facility] n (CRESTOR) 3-22 by mouth [facility] 10 MG 00:00: daily. of tablet 00 Medicin e CHONDROITIN Yes 1200mg Take 1,200 [facility] SULFATE OR 7-12 mg by College 15:24: mouth. of 15 Medicin e fexofenadin Yes 180mg Take 180 [facility] (GRACIE) 7-12 mg by [facility] 180 MG 15:24: mouth as of tablet 15 needed for Medicin Other. e aspirin 81 2018- Yes 81mg Take 81 mg [facility] MG tablet 7-12 by mouth Colleg e 15:24: daily. of 15 Medicin e atorvastati Yes 40mg Take 40 mg [facility] n (LIPITOR) 7-12 by mouth. Col lege 40 MG 15:24: of tablet 15 Medicin e fluorouraci Yes Apply to Simon l (EFUDEX) 7-10 arms twice Col lege 5 % cream 00:00: a day for of 00 2 weeks. Medicin Start 2 e [facility] before [facility] (EFUDEX) 7-10 arms twice Col lege 5 % cream 00:00: a day for of 00 2 weeks. Medicin Start 2 e weeks before next appointmen t. fluorouraci Yes Apply to [facility] l (EFUDEX) 7-10 arms twice Col lege 5 % cream 00:00: a day for of 00 2 weeks. Medicin Start 2 e weeks before next appointmen t. fluorouraci Yes Apply to [facility] l (EFUDEX) 7-10 arms twice Col lege 5 % cream 00:00: a day for of 00 2 weeks. Medicin Start 2 e weeks before next appointmen t. Na Yes [id number] [SUPREP] [facility] Sulfate-K 5-10 Take as College Sulfate-Mg 00:00: directed. of Sulf 00 Medicin (SUPREP e BOWEL PREP KIT) 17.5-3.13-1 .6 GM/180ML SOLN Na 2018-0 Yes [id number] [SUPREP] [facility] Sulfate-K 5-10 Take as College Sulfate-Mg 00:00: directed. of Sulf 00 Medicin (SUPREP e BOWEL PREP KIT) 17.5-3.13-1 .6 GM/180ML SOLN Na 2018-0 Yes [id number] [SUPREP] [facility] Sulfate-K 5-10 Take as College Sulfate-Mg 00:00: directed. of Sulf 00 Medicin (SUPREP e BOWEL PREP KIT) 17.5-3.13-1 .6 GM/180ML SOLN Na 2018-0 2020- No [id number] [SUPREP] [facility] brendan Sulfate-K 5-10 12-10 Take as Colleg e Sulfate-Mg 00:00: 00:00 directed. o f Sulf 00 :00 Medicin (SUPREP e BOWEL PREP KIT) 17.5-3.13-1 .6 GM/180ML SOLN ciprofloxac 2018-0 Yes 500mg Take 1 Tab [facility] in (CIPRO) 5-03 by mouth Colle ge 500 MG 00:00: two times of tablet 00 daily. Medicin e metronidazo 2018-0 Yes 500mg Take 1 Tab [facility] (FLAGYL) 5-03 by mouth 3 Co llege 500 MG 00:00: times of tablet 00 daily. Medicin e ciprofloxac 2018-0 Yes 500mg Take 1 Tab [facility] in (CIPRO) 5-03 by mouth Colle ge 500 MG 00:00: two times of tablet 00 daily. Medicin e metronidazo 2018-0 Yes 500mg Take 1 Tab [facility] le (FLAGYL) 5-03 by mouth 3 Co llege 500 MG 00:00: times of tablet 00 daily. Medicin e ciprofloxac 2018-0 Yes 500mg Take 1 Tab [facility] in (CIPRO) 5-03 by mouth Colle ge 500 MG 00:00: two times of tablet 00 daily. Medicin e metronidazo 2018-0 Yes 500mg Take 1 Tab [facility] (FLAGYL) 5-03 by mouth 3 Co llege 500 MG 00:00: times of tablet 00 daily. Medicin e ciprofloxac 2018-0 Yes 500mg Take 1 Tab [facility] in (CIPRO) 5-03 by mouth Colle ge 500 MG 00:00: two times of tablet 00 daily. Medicin e metronidazo 2018-0 Yes 500mg Take 1 Tab [facility] (FLAGYL) 5-03 by mouth 3 Co llege 500 MG 00:00: times of tablet 00 daily. Medicin e ciprofloxac 2018-0 Yes 500mg Take 1 Tab [facility] in (CIPRO) 5-03 by mouth Colle ge 500 MG 00:00: two times of tablet 00 daily. Medicin e metronidazo 2018-0 Yes 500mg Take 1 Tab [facility] le (FLAGYL) 5-03 by mouth 3 Co llege 500 MG 00:00: times of tablet 00 daily. Medicin e ciprofloxac 2018-0 Yes 500mg Take 1 Tab [facility] in (CIPRO) 5-03 by mouth Colle ge 500 MG 00:00: two times of tablet 00 daily. Medicin e metronidazo 2018-0 Yes 500mg Take 1 Tab [facility] le (FLAGYL) 5-03 by mouth 3 Co llege 500 MG 00:00: times of tablet 00 daily. Medicin e ciprofloxac 2018-0 Yes 500mg Take 1 Tab [facility] in (CIPRO) 5-03 by mouth Colle ge 500 MG 00:00: two times of tablet 00 daily. Medicin e metronidazo 2018-0 Yes 500mg Take 1 Tab [facility] (FLAGYL) 5-03 by mouth 3 Co llege 500 MG 00:00: times of tablet 00 daily. Medicin e ciprofloxac 2018-0 Yes 500mg Take 1 Tab [facility] in (CIPRO) 5-03 by mouth Colle ge 500 MG 00:00: two times of tablet 00 daily. Medicin e metronidazo 2018-0 Yes 500mg Take 1 Tab [facility] (FLAGYL) 5-03 by mouth 3 Co llege 500 MG 00:00: times of tablet 00 daily. Medicin e ciprofloxac 2018-0 2022- No 500mg Take 1 Tab [facility] in (CIPRO) 5-03 05-27 by mouth [facility] 500 MG 00:00: 00:00 two times of tablet 00 :00 daily. Medicin e metronidazo 2018-0 2022- No 500mg Take 1 Tab [facility] le (FLAGYL) 5-03 05-27 by mouth 3 C ollege 500 MG 00:00: 00:00 times of tablet 00 :00 daily. Medicin e atorvastati 2017-0 Yes 40mg Take 40 mg [facility] n (LIPITOR) 2-21 by mouth [facility] 40 MG 00:00: daily. of tablet 00 Medicin e atorvastati 2017-0 Yes 40mg Take 40 mg [facility] n (LIPITOR) 2-21 by mouth [facility] 40 MG 00:00: daily. of tablet 00 Medicin e atorvastati 2017-0 Yes 40mg Take 40 mg [facility] n (LIPITOR) 2-21 by mouth [facility] 40 MG 00:00: daily. of tablet 00 Medicin e atorvastati 2017-0 2020- No 40mg Take 40 mg [facility] (LIPITOR) 2-21 12-10 by mouth Col lege 40 MG 00:00: 00:00 daily. of tablet 00 :00 Medicin e EFFIENT Yes [facility] MG TABS 7-05 College 00:00: of 00 Medicin e EFFIENT Yes [facility] MG TABS 7-05 [place] 00:00: of 00 Medicin e EFFIENT Yes [facility] MG TABS 7-05 [place] 00:00: of 00 Medicin e EFFIENT Yes [facility] MG TABS 7-05 [place] 00:00: of 00 Medicin e EFFIENT Yes [facility] MG TABS 7-05 [place] 00:00: of 00 Medicin e EFFIENT Yes [facility] MG TABS 7-05 [place] 00:00: of 00 Medicin e EFFIENT Yes [facility] MG TABS 7-05 [place] 00:00: of 00 Medicin e EFFIENT Yes [facility] MG TABS 7-05 [place] 00:00: of 00 Medicin e EFFIENT Yes [facility] MG TABS 7-05 [place] 00:00: of 00 Medicin e No known No Univers medications ity [facility] Immunizations Ordered Filled Immunization Date Status Comments Sour e Immunization Name Name SARS-COV-2 COVID-19 2021-02-15 Completed Unive rsity of PFIZER VACCINE 00:00:00 [place] [facility] SARS-COV-2 COVID-19 2020-06-30 Completed Unive rsity of PFIZER VACCINE 00:00:00 [place] [facility] SARS-COV-2 COVID-19 2020-06-30 Completed Unive rsity of PFIZER VACCINE 00:00:00 [facility] SARS-COV-2 COVID-19 2020-06-30 Completed Unive rsity of PFIZER VACCINE 00:00:00 [facility] SARS-COV-2 COVID-19 2020-06-30 Completed Unive rsity of PFIZER VACCINE 00:00:00 [facility] SARS-COV-2 COVID-19 2020-06-30 Completed Unive rsity of PFIZER VACCINE 00:00:00 [facility] SARS-COV-2 COVID-19 2020-06-30 Completed Unive rsity of PFIZER VACCINE 00:00:00 [facility] SARS-COV-2 COVID-19 2020-06-30 Completed Unive rsity of PFIZER VACCINE 00:00:00 [facility] SARS-COV-2 COVID-19 2020-06-30 Completed Unive rsity of PFIZER VACCINE 00:00:00 [facility] SARS-COV-2 COVID-19 2020-06-30 Completed Unive rsity of PFIZER VACCINE 00:00:00 [facility] SARS-COV-2 COVID-19 2020-06-30 Completed Unive rsity of PFIZER VACCINE 00:00:00 [facility] SARS-COV-2 COVID-19 2020-06-30 Completed Unive rsity of PFIZER VACCINE 00:00:00 [facility] SARS-COV-2 COVID-19 2020-06-30 Completed Unive rsity of PFIZER VACCINE 00:00:00 [facility] SARS-COV-2 COVID-19 2020-06-30 Completed Unive rsity of PFIZER VACCINE 00:00:00 [facility] SARS-COV-2 COVID-19 2020-06-30 Completed Unive rsity of PFIZER VACCINE 00:00:00 [facility] SARS-COV-2 COVID-19 2020-06-30 Completed Unive rsity of PFIZER VACCINE 00:00:00 [facility] [id number] 2020-06-30 Completed [place] [facility] [id number] 00:00:00 SARS-COV-2 COVID-19 2020-06-09 Completed Unive rsity of PFIZER VACCINE 00:00:00 [facility] SARS-COV-2 COVID-19 2020-06-09 Completed Unive rsity of PFIZER VACCINE 00:00:00 [facility] SARS-COV-2 COVID-19 2020-06-09 Completed Unive rsity of PFIZER VACCINE 00:00:00 [facility] SARS-COV-2 COVID-19 2020-06-09 Completed Unive rsity of PFIZER VACCINE 00:00:00 [facility] SARS-COV-2 COVID-19 2020-06-09 Completed Unive rsity of PFIZER VACCINE 00:00:00 [facility] SARS-COV-2 COVID-19 2020-06-09 Completed Unive rsity of PFIZER VACCINE 00:00:00 [facility] SARS-COV-2 COVID-19 2020-06-09 Completed Unive rsity of PFIZER VACCINE 00:00:00 [place] [facility] SARS-COV-2 COVID-19 2020-06-09 Completed Unive rsity of PFIZER VACCINE 00:00:00 [place] [facility] SARS-COV-2 COVID-19 2020-06-09 Completed Unive rsity of PFIZER VACCINE 00:00:00 [facility] SARS-COV-2 COVID-19 2020-06-09 Completed Unive rsity of PFIZER VACCINE 00:00:00 [facility] SARS-COV-2 COVID-19 2020-06-09 Completed Unive rsity of PFIZER VACCINE 00:00:00 [facility] SARS-COV-2 COVID-19 2020-06-09 Completed Unive rsity of PFIZER VACCINE 00:00:00 [facility] SARS-COV-2 COVID-19 2020-06-09 Completed Unive rsity of PFIZER VACCINE 00:00:00 [facility] SARS-COV-2 COVID-19 2020-06-09 Completed Unive rsity of PFIZER VACCINE 00:00:00 [facility] SARS-COV-2 COVID-19 2020-06-09 Completed Unive rsity of PFIZER VACCINE 00:00:00 [facility] [id number] 2020-06-09 Completed Terry An [id number] 00:00:00 ER Influenza 2020-01-22 Completed [facility] ge of 00:00:00 Medicine Influenza 2020-01-22 Completed [facility] ge of 00:00:00 Medicine Influenza 2020-01-22 Completed [facility] Colle ge of 00:00:00 Medicine Influenza 2020-01-22 Completed [facility] Colle ge of 00:00:00 Medicine Influenza 2020-01-22 Completed [facility] ge of 00:00:00 Medicine Influenza 2020-01-22 Completed [facility] ge of 00:00:00 Medicine Influenza (whole) 2014-12-25 Completed [facility] 00:00:00 Medicine Influenza (whole) 2014-12-25 Completed [facility] 00:00:00 Medicine Influenza (whole) 2014-12-25 Completed [facility] 00:00:00 Medicine Influenza (whole) 2014-12-25 Completed [facility] 00:00:00 Medicine Influenza (whole) 2014-12-25 Completed [facility] 00:00:00 Medicine Influenza (whole) 2014-12-25 Completed [facility] 00:00:00 Medicine Influenza (whole) 2014-12-25 Completed [facility] 00:00:00 Medicine Influenza (whole) 2014-12-25 Completed [facility] 00:00:00 Medicine Influenza (whole) 2014-12-25 Completed [facility] 00:00:00 Medicine Vital Signs Vital Name Observation Time Observation Value Comments Source Systolic blood 2021-05-27 15:33:00 151 mm[Hg] [facility] Diastolic blood 2021-05-27 15:33:00 76 mm[Hg] [facility] Heart rate 2021-05-27 15:33:00 57 /min [facility] Respiratory rate 2021-05-27 15:33:00 16 /min [facility] Body height 2021-05-27 15:33:00 177.8 cm [facility] Body weight 2021-05-27 15:33:00 87.998 kg [facility] BMI 2021-05-27 15:33:00 27.84 kg/m2 [facility] Systolic blood 2020-09-16 20:28:00 146 mm[Hg] Univer sity of pressure [facility] Diastolic blood 2020-09-16 20:28:00 80 mm[Hg] Unive rsity of [facility] Heart rate 2020-09-16 20:28:00 59 /min [facility] Body temperature 2020-09-16 20:28:00 35.78 Estee Univ ersity of [facility] Body height 2020-09-16 20:28:00 177.8 cm [facility] Body weight 2020-09-16 20:28:00 86.682 kg [facility] BMI 2020-09-16 20:28:00 27.42 [facility]m2 [facility] Oxygen saturation in 2020-09-16 20:28:00 98 /min University Arterial blood by [facility] Pulse oximetry Branch Systolic blood 2020-09-16 15:35:00 149 mm[Hg] Univer sity of pressure [facility] Diastolic blood 2020-09-16 15:35:00 80 mm[Hg] Unive rsity of pressure [facility] Heart rate 2020-09-16 15:35:00 52 /min Universi ty of [facility] Body temperature 2020-09-16 15:35:00 36.22 Estee Univ ersity of [facility] Respiratory rate 2020-09-16 15:35:00 18 /min Univ ersity of [facility] Body height 2020-09-16 15:35:00 177.8 cm Universi ty of [facility] Body weight 2020-09-16 15:35:00 87.363 kg Universi ty of [facility] BMI 2020-09-16 15:35:00 27.64 kg/m2 Universi ty [facility] Systolic blood 2020-08-31 15:51:00 154 mm[Hg] [facility] Medicine Diastolic blood 2020-08-31 15:51:00 82 mm[Hg] [facility] Medicine Heart rate 2020-08-31 15:51:00 59 /min [facility] Body temperature 2020-08-31 15:51:00 36.11 Estee [facility] Body weight 2020-08-31 15:51:00 81.647 kg [facility] BMI 2020-08-31 15:51:00 25.83 kg/m2 [facility] Oxygen saturation in 2020-08-31 15:51:00 100 /min [facility] Arterial blood by [facility] Pulse oximetry Systolic blood 2020-08-19 16:29:00 135 mm[Hg] Univer sity of [facility] Diastolic blood 2020-08-19 16:29:00 72 mm[Hg] Unive rsity of [facility] Heart rate 2020-08-19 16:29:00 78 /min Universi ty of [facility] Body temperature 2020-08-19 16:29:00 36.44 Estee Univ ersity of [facility] Body height 2020-08-19 16:29:00 177.8 cm [facility]i ty [facility] Body weight 2020-08-19 16:29:00 80.74 kg Universi ty [facility] BMI 2020-08-19 16:29:00 25.54 kg/m2 [facility] ty [facility] Oxygen saturation in 2020-08-19 16:29:00 95 /min University of [facility]ial blood by [facility] Systolic blood 2020-08-19 16:29:00 135 mm[Hg] Univer sity of pressure [facility] Diastolic blood 2020-08-19 16:29:00 72 mm[Hg] Unive rsity of pressure [facility] Heart rate 2020-08-19 16:29:00 78 /min [facility]i ty [facility] Body temperature 2020-08-19 16:29:00 36.44 Estee [facility] ers[facility] Body height 2020-08-19 16:29:00 177.8 cm [facility]i [facility] Body weight 2020-08-19 16:29:00 80.74 kg [facility]i [facility] BMI 2020-08-19 16:29:00 25.54 kg/m2 [facility]i ty [facility] Oxygen saturation in 2020-08-19 16:29:00 95 /min University of Arterial blood by [facility] roger Pulse oximetry Branch Systolic blood 2020-08-12 16:01:00 155 mm[Hg] Univer sity of pressure [facility] Diastolic blood 2020-08-12 16:01:00 84 mm[Hg] Unive rsity of pressure [facility] Heart rate 2020-08-12 15:03:00 64 /min [facility]i ty [facility] Body temperature 2020-08-12 15:03:00 36.56 Estee Univ ers[facility] of [facility] Respiratory rate 2020-08-12 15:03:00 18 /min Univ ersity of [facility] Body height 2020-08-12 15:03:00 177.8 cm [facility] Body weight 2020-08-12 15:03:00 82.827 kg [facility] BMI 2020-08-12 15:03:00 26.20 kg/m2 [facility] Oxygen saturation in 2020-08-12 15:03:00 98 /min University of Arterial blood by [facility] Pulse oximetry Branch Heart rate 2020-08-05 20:00:00 61 /min [facility]i ty [facility] Respiratory rate 2020-08-05 20:00:00 18 /min Univ ersity of [facility] Oxygen saturation in 2020-08-05 20:00:00 95 /min University of Arterial blood by [facility] Pulse oximetry Branch Systolic blood 2020-08-05 19:00:00 135 mm[Hg] Univer sity of pressure [facility] Diastolic blood 2020-08-05 19:00:00 74 mm[Hg] Unive rsity of pressure [facility] Body temperature 2020-08-05 16:26:00 36.67 Estee Univ ers[facility] Body height 2020-08-02 17:49:00 177.8 cm [facility] Body weight 2020-08-02 17:49:00 82.555 kg [facility] BMI 2020-08-02 17:49:00 26.11 kg/m2 [facility] Systolic blood 2020-08-04 17:29:00 146 mm[Hg] Univer sity of pressure [facility] Diastolic blood 2020-08-04 17:29:00 75 mm[Hg] Unive rsity of pressure [facility] Heart rate 2020-08-04 17:29:00 60 /min [facility]i ty [facility] Body temperature 2020-08-04 17:29:00 36.67 Estee Univ ers[facility] Respiratory rate 2020-08-04 17:29:00 19 /min Univ ersity of [facility] Oxygen saturation in 2020-08-04 17:29:00 100 /min University of Arterial blood by [facility] Pulse oximetry Branch Body height 2020-08-02 17:49:00 177.8 cm [facility]i [facility] Body weight 2020-08-02 17:49:00 82.555 kg [facility] BMI 2020-08-02 17:49:00 26.11 kg/m2 [facility] Systolic blood 2020-07-07 15:12:00 131 mm[Hg] [facility] College of pressure Medicine Diastolic blood 2020-07-07 15:12:00 81 mm[Hg] [facility] pressure Medicine Heart rate 2020-07-07 15:12:00 62 /min [facility] ollege of Medicine Body temperature 2020-07-07 15:12:00 36.17 Estee [facility] Body height 2020-07-07 15:12:00 177.8 cm [facility] ollege of [facility] Body weight 2020-07-07 15:12:00 82.555 kg [facility] ol[facility] of Medicine BMI 2020-07-07 15:12:00 26.11 kg/m2 [facility] Oxygen saturation in 2020-07-07 15:12:00 99 /min [facility] Arterial blood by [facility] Pulse oximetry Systolic blood 2020-06-02 22:55:00 148 mm[Hg] [facility] pressure Medicine Diastolic blood 2020-06-02 22:55:00 78 mm[Hg] [facility] Medicine Heart rate 2020-06-02 22:55:00 56 /min [facility] ol[facility] of Medicine Body height 2020-06-02 22:55:00 177.8 cm [facility] Body weight 2020-06-02 22:55:00 82.101 kg [facility] BMI 2020-06-02 22:55:00 25.97 kg/m2 [facility] ollege of [facility] Systolic blood 2020-05-26 15:49:00 136 mm[Hg] [facility] pressure Medicine Diastolic blood 2020-05-26 15:49:00 75 mm[Hg] [facility] pressure Medicine Heart rate 2020-05-26 15:49:00 60 /min [facility] ol[facility] of Medicine Systolic blood 2020-04-08 15:28:00 138 mm[Hg] [facility] of pressure Medicine Diastolic blood 2020-04-08 15:28:00 76 mm[Hg] [facility] of pressure Medicine Heart rate 2020-04-08 15:28:00 55 /min [facility] ol[facility] of Medicine Body height 2020-04-08 15:28:00 177.8 cm [facility] of Medicine Body weight 2020-04-08 15:28:00 86.183 kg [facility] BMI 2020-04-08 15:28:00 27.26 kg/m2 [facility] Systolic blood 2020-01-08 14:25:00 128 mm[Hg] [facility] Medicine Diastolic blood 2020-01-08 14:25:00 78 mm[Hg] [facility] Medicine Heart rate 2020-01-08 14:25:00 55 /min [facility] Body temperature 2020-01-08 14:25:00 36.56 Estee [facility] Respiratory rate 2020-01-08 14:25:00 16 /min [facility] Body height 2020-01-08 14:25:00 177.8 cm [facility] Body weight 2020-01-08 14:25:00 87.544 kg [facility] BMI 2020-01-08 14:25:00 27.69 kg/m2 [facility] Oxygen saturation in 2020-01-08 14:25:00 96 /min [facility] Arterial blood by [facility] Pulse oximetry Systolic blood 2019-12-05 15:03:00 123 mm[Hg] Univer sity of pressure [facility] Diastolic blood 2019-12-05 15:03:00 79 mm[Hg] Unive rsity of pressure [facility] Heart rate 2019-12-05 15:03:00 62 /min [facility] Body weight 2019-12-05 15:03:00 91.173 kg [facility] BMI 2019-12-05 15:03:00 28.84 kg/m2 [facility] Systolic blood 2019-11-28 14:35:00 124 mm[Hg] Univer sity of pressure [facility] Diastolic blood 2019-11-28 14:35:00 76 mm[Hg] Unive rsity of pressure [facility] Heart rate 2019-11-28 14:35:00 61 /min [facility] Body weight 2019-11-28 14:35:00 94.348 kg [facility] BMI 2019-11-28 14:35:00 29.84 kg/m2 [facility] Systolic blood 2019-10-17 13:52:00 132 mm[Hg] Univer sity of pressure [facility] Diastolic blood 2019-10-17 13:52:00 69 mm[Hg] Unive rsity of pressure [facility] Heart rate 2019-10-17 13:52:00 65 /min Universi ty of [facility] Body temperature 2019-10-17 13:52:00 36.67 Estee Univ ersity of [facility] Respiratory rate 2019-10-17 13:52:00 18 /min Univ ersity of [facility] Body height 2019-10-17 13:52:00 177.8 cm Universi ty of [facility] Body weight 2019-10-17 13:52:00 102.331 kg Universi ty of [facility] BMI 2019-10-17 13:52:00 32.37 kg/m2 Universi ty of [facility] Oxygen saturation in 2019-10-17 13:52:00 95 /min University of Arterial blood by [facility] Pulse oximetry Branch Systolic blood 2019 18:07:00 166 mm[Hg] [facility] Medicine Diastolic blood 2019 18:07:00 82 mm[Hg] [facility] Medicine Heart rate 2019 18:07:00 64 /min [facility] Body temperature 2019 18:07:00 36.89 Estee [facility] Respiratory rate 2019 18:07:00 16 /min [facility] Body height 2019 18:07:00 177.8 cm [facility] Body weight 2019 18:07:00 103.602 kg [facility] BMI 2019 18:07:00 32.77 kg/m2 [facility] Oxygen saturation in 2019 18:07:00 97 /min [facility] Arterial blood by [facility] Pulse oximetry Systolic blood 2019 15:06:00 163 mm[Hg] [facility] Medicine Diastolic blood 2019 15:06:00 87 mm[Hg] [facility] Medicine Heart rate 2019 15:06:00 62 /min [facility] Systolic blood 2019-08-29 13:30:00 127 mm[Hg] Univer sity of pressure [facility] Diastolic blood 2019-08-29 13:30:00 70 mm[Hg] Unive rsity of pressure [facility] Heart rate 2019-08-29 13:30:00 57 /min [facility] Oxygen saturation in 2019-08-29 13:30:00 96 /min [facility] Arterial blood by [facility] Pulse oximetry Branch Respiratory rate 2019-08-29 13:25:00 12 /min [facility] Body temperature 2019-08-29 12:37:00 36.5 Estee [facility] Body height 2019-08-27 18:10:00 177.8 cm [facility] Body weight 2019-08-27 18:10:00 98.431 kg [facility] BMI 2019-08-27 18:10:00 31.14 kg/m2 [facility] Respiratory rate 2019-08-29 12:29:00 10 /min [facility] Systolic (mm Hg) 2020-11-08 20:00:00 Chet rial [facility] Diastolic (mm Hg) 2020-11-08 20:00:00 Mem orial [place] Respitory Rate 2020-11-08 20:00:00 Memori al [facility] Respitory Rate 2020-11-08 19:00:00 Memori al [place] Systolic (mm Hg) 2020-11-08 19:00:00 Chet rial [place] Diastolic (mm Hg) 2020-11-08 19:00:00 Mem orial [place] Respitory Rate 2020-11-08 18:00:00 Memori al [facility] Systolic (mm Hg) 2020-11-08 18:00:00 Chet rial [place] Diastolic (mm Hg) 2020-11-08 18:00:00 Mem orial [facility] Heart Rate 2020-10-29 16:40:00 [facility] Height 2020-10-29 15:59:00 177.8 cm [facility] Weight 2020-10-29 15:59:00 [facility] BMI Calculated 2020-10-29 15:59:00 Memori al [facility] Procedures Procedure Date / Time Performing Clinician Source Performed POCT URINALYSIS DIPSTICK 2021-05-27 00:00:00 Freda Patricio I [facility] ESTEFANI,POST-VOID 2021-05-27 00:00:00 Freda Patricio I [facility] Co llege of [facility],US,NON-IMG Medicine SARS-COV-2 COVID-19 2021-02-15 20:40:17 Doctor Unassigned, [facility] VACCINE,0.3ML,IM (PFIZER) [facility] Dental abscess 2020-10-27 05:00:00 [facility] ASSIGNMENT OF BENEFITS 2020-09-16 15:25:37 Doctor Unassigned, [facility] Cholecystectomy 2020-08-18 05:00:00 [facility] COMP. METABOLIC PANEL 2020-08-05 10:27:[address] [facility] ([id number]) Medical [place] CBC WITH DIFF 2020-08-05 10:27:00 Tez Panchal [facility] COMP. METABOLIC PANEL 2020-08-05 10:27:[address] [facility] ([id number]) [facility] CBC WITH DIFF 2020-08-05 10:27:00 Tez Panchal [facility] FL TIME OR 2020-08-04 20:03:58 Donaldson [facility] (NON-REPORTABLE) Medical Branch FL TIME OR 2020-08-04 20:03:58 Mendoza [facility] (NON-REPORTABLE) Medical Branch LAPAROSCOPIC 2020-08-04 17:57:00 Mendoza [facility] CHOLECYSTECTOMY Medical Branch LAPAROSCOPIC 2020-08-04 17:57:00 [facility] Branch MAGNESIUM 2020-08-04 10:38:00 Victorino [facility] COMP. METABOLIC PANEL 2020-08-04 10:38:[address] [facility] ([id number]) Medical Branch CBC WITH DIFF 2020-08-04 10:38:00 Maria Luisa Shi [facility] MAGNESIUM 2020-08-04 10:38:00 Victorino, [facility] COMP. METABOLIC PANEL 2020-08-04 10:38:[address] [facility] ([id number]) Medical Branch CBC WITH DIFF 2020-08-04 10:38:00 Maria Luisa Shi [facility] MR ABDOMEN W WO CONTRAST 2020-08-03 20:41:49 Romel Perez [facility] Medical Branch MR ABDOMEN W WO CONTRAST 2020-08-03 20:41:49 Romel Perez [facility] CT ABDOMEN PELVIS W 2020-08-03 17:30:16 Maria Luisa Shi [facility] Branch CT ABDOMEN PELVIS W 2020-08-03 17:30:16 Maria Luisa Shi [facility] TRANSTHORACIC ECHO (TTE) 2020-08-03 16:52:56 Maria Luisa Shi [facility] TRANSTHORACIC ECHO (TTE) 2020-08-03 16:52:56 Maria Luisa Shi [facility] TROPONIN I 2020-08-03 15:51:00 Maria Luisa Shi [facility] TROPONIN I 2020-08-03 15:51:00 Maria Luisa Shi [facility] US ABDOMEN LIMITED 2020-08-03 15:22:57 Maria Luisa Shi [facility] US ABDOMEN LIMITED 2020-08-03 15:22:57 Maria Luisa Shi [facility] LIPASE 2020-08-03 11:58:00 Maria Luisa Shi [facility] TROPONIN I 2020-08-03 11:58:00 Grisel [facility] HEPATIC FUNCTION PANEL 2020-08-03 11:58:00 Maria Luisa Shi [facility] ([id number]) (ALB,T.PRO,BILI Medical Branch T,BU/BC,ALT,AST,ALK PHOS) LIPASE 2020-08-03 11:58:00 Maria Luisa Shi [facility] TROPONIN I 2020-08-03 11:58:00 Grisel [facility] HEPATIC FUNCTION PANEL 2020-08-03 11:58:00 Maria Luisa Shi [facility] ([id number]) (ALB,T.PRO,BILI Medical Branch T,BU/BC,ALT,AST,ALK PHOS) XR CHEST 1 VW 2020-08-03 11:54[facility] VW 2020-08-03 11:54:55 Grisel [facility] POCT GLUCOSE (AUTOMATED) 2020-08-03 11:12:00 Maria Luisa Shi [facility] POCT GLUCOSE (AUTOMATED) 2020-08-03 11:12:00 Maria Luisa Shi [facility] HB ECG ROUTINE & RHYTHM 2020-08-03 11:06:05 Grisel [facility] HB ECG ROUTINE & RHYTHM 2020-08-03 11:06:05 Grisel [facility] TROPONIN I 2020-08-03 08:29:00 [facility] BASIC METABOLIC PANEL (NA, 2020-08-03 08:29:00 Maria Luisa Shi [facility] K, CL, CO2, GLUCOSE, BUN, Medica l Branch CREATININE, CA) TROPONIN I 2020-08-03 08:29:00 [facility] BASIC METABOLIC PANEL (NA, 2020-08-03 08:29:00 Maria Luisa Shi [facility] K, CL, CO2, GLUCOSE, BUN, Medica l Branch CREATININE, CA) TROPONIN I 2020-08-02 20:18:00 Maria Luisa Shi [facility] TROPONIN I 2020-08-02 20:18:00 Maria Luisa Shi [facility] CT CERVICAL SPINE WO 2020-08-02 16:22:04 Shashi Lombardi [facility] CONTRAST [facility] Branch CT CERVICAL SPINE WO 2020-08-02 16:22:04 Shashi Lombardi [facility] CONTRAST [facility] Branch COVID-19 (ID NOW RAPID 2020-08-02 15:47:00 Shashi Lombardi [facility] TESTING) Medical Branch LAB ONLY COVID 2020-08-02 15:47:00 Shashi Lombardi [facility] INTERPRETATION [facility] Branch COVID-19 (ID NOW RAPID 2020-08-02 15:47:00 Shashi Lombardi [facility] TESTING) Medical Branch LAB ONLY COVID 2020-08-02 15:47:00 Singer Shashi [facility] INTERPRETATION [facility] XR CHEST 1 VW 2020-08-02 15:20:02 Singer [facility] XR CHEST 1 VW 2020-08-02 15:20:02 Singer [facility] LIPASE 2020-08-02 14:54:00 Singer [facility] MAGNESIUM 2020-08-02 14:54:00 Lombardi, [facility] TROPONIN I 2020-08-02 14:54:00 Singer [facility] COMP. METABOLIC PANEL 2020-08-02 14:54:00 [facility] ([id number]) [facility] Branch CBC WITH DIFF 2020-08-02 14:54:00 Singer [facility] PROTHROMBIN TIME / INR 2020-08-02 14:54:00 Shashi Lombardi [facility] ACTIVATED PARTIAL THRMPLAS 2020-08-02 14:54:00 Shashi [facility]ardi [facility] LIPASE 2020-08-02 14:54:00 Singer [facility] MAGNESIUM 2020-08-02 14:54:00 Singer [facility] TROPONIN I 2020-08-02 14:54:00 Singer [facility] COMP. METABOLIC PANEL 2020-08-02 14:54:00 Shashi Lombardi [facility] ([id number]) [facility] Branch CBC WITH DIFF 2020-08-02 14:54:00 Singer [facility] PROTHROMBIN TIME / INR 2020-08-02 14:54:00 [facility]ashi [facility] ACTIVATED PARTIAL THRMPLAS 2020-08-02 14:54:00 Shashi [facility]ardi [facility] HB ECG ROUTINE & RHYTHM 2020-08-02 14:48:23 Shashi Lombardi [facility] HB ECG ROUTINE & RHYTHM 2020-08-02 14:48:23 Shashi Lombardi [facility] STRIP Medical Branch SCANNED LAB RESULTS 2019-12-03 05:01:00 Doctor UnassZelda goodwin [facility] Cardiac catheterization 2014-04-30 00:00:00 Chet An Prostate 2005-04-30 00:00:00 [facility] Plan of Care Planned Activity Planned Date Details Comments Source Future Scheduled 2021-05-30 TETANUS SHOT (ADULT) [employer] Test 09:05:03 [code = TETANUS SHOT of Medi cine (ADULT)] Future Scheduled 2021-05-30 BMI FOLLOW UP PLAN [employer] Test 09:05:03 [code = BMI FOLLOW of Medici ne UP PLAN] Future Scheduled 2021-05-30 ZOSTER VACCINE (1 of [employer] Test 09:05:03 2) [code = ZOSTER of Medicin e VACCINE (1 of 2)] Future Scheduled 2021-05-30 FALL SCREEN [code = [employer] 09:05:03 FALL SCREEN] of Medicine Future Scheduled 2021-05-30 Pneumococcal 65+ (1 [employer] Test 09:05:03 of 1 - PPSV23) [code of Medi cine = Pneumococcal 65+ (1 of 1 - PPSV23)] Future Scheduled 2021-05-30 MEDICARE AWV [facility] [employer] Test 09:05:03 (Initial) [code = of Medicin e MEDICARE AWV (Initial)] Future Scheduled 2021-05-30 FLU VACCINE > 6 [facility] C [facility]lege Test 09:05:03 MONTHS [code = FLU of Medici ne VACCINE > 6 MONTHS] Future Scheduled 2021-05-30 Screening for [facility] Col lege Test 09:05:03 malignant neoplasm of Medici ne of colon (procedure) [code = 188440024] Diagnostic Test 2020-06-16 PSA PANEL(URO DEPT) Expected: [employer] Pending 00:00:00 [code = 97780] 06/16/2020 of Medicine (Approximate), Expires: 07/02/2020 Diagnostic Test 2020-06-16 TESTOSTERONE-TOTAL(U Expected: [employer] Pending 00:00:00 RO DEPT) [code = 06/16/2020 of Medicine 2986-8] (Approximate), Expires: 07/02/2020 Future Scheduled TETANUS SHOT (ADULT) [employer] Test [code = TETANUS SHOT of Medi cine (ADULT)] Future Scheduled BMI FOLLOW UP PLAN [employer] Test [code = BMI FOLLOW of Medici ne UP PLAN] Future Scheduled HEPATITIS C [facility] [employer] Test SCREENING [code = of Medicin e HEPATITIS C SCREENING] Future Scheduled ZOSTER VACCINE (1 of [employer] Test 2) [code = ZOSTER of Medicin e VACCINE (1 of 2)] Future Scheduled FALL SCREEN [code = [employer] FALL SCREEN] of Medicine Future Scheduled PNEUMOVAX >=65 [facility] [employer] Test (PPSV23) [code = of Medicine PNEUMOVAX >=65 (PPSV23)] Future Scheduled MEDICARE AWV [facility] [employer] Test (Initial) [code = of Medicin e MEDICARE AWV (Initial)] Future Scheduled FLU VACCINE > 6 [facility] [employer] Test MONTHS [code = FLU of Medici ne VACCINE > 6 MONTHS] Future Scheduled COLON CANCER [facility] [employer] Test SCREENING: of Medicine COLONOSCOPY [code = COLON CANCER SCREENING: COLONOSCOPY] Future Scheduled TETANUS SHOT (ADULT) [employer] Test [code = TETANUS SHOT of Medi cine (ADULT)] Future Scheduled BMI FOLLOW UP PLAN [employer] Test [code = BMI FOLLOW of Medici ne UP PLAN] Future Scheduled HEPATITIS C [facility] [employer] Test SCREENING [code = of Medicin e HEPATITIS C SCREENING] Future Scheduled ZOSTER VACCINE (1 of [employer] Test 2) [code = ZOSTER of Medicin e VACCINE (1 of 2)] Future Scheduled FALL SCREEN [code = [employer] FALL SCREEN] of Medicine Future Scheduled PNEUMOVAX >=65 [facility] [employer] Test (PPSV23) [code = of Medicine PNEUMOVAX >=65 (PPSV23)] Future Scheduled MEDICARE AWV [facility] [employer] Test (Initial) [code = of Medicin e MEDICARE AWV (Initial)] Future Scheduled COLON CANCER [facility] [employer] Test SCREENING: of Medicine COLONOSCOPY [code = COLON CANCER SCREENING: COLONOSCOPY] Future Scheduled COVID-19 Vaccine [facility] [employer] Test Evaluation [code = of Medici ne COVID-19 Vaccine Evaluation] Future Scheduled TETANUS SHOT (ADULT) [employer] Test [code = TETANUS SHOT of Medi cine (ADULT)] Future Scheduled BMI FOLLOW UP PLAN [employer] Test [code = BMI FOLLOW of Medici ne UP PLAN] Future Scheduled HEPATITIS C [facility] [employer] Test SCREENING [code = of Medicin e HEPATITIS C SCREENING] Future Scheduled ZOSTER VACCINE (1 of [employer] Test 2) [code = ZOSTER of Medicin e VACCINE (1 of 2)] Future Scheduled FALL SCREEN [code = [employer] FALL SCREEN] of Medicine Future Scheduled PNEUMOVAX >=65 [facility] [employer] Test (PPSV23) [code = of Medicine PNEUMOVAX >=65 (PPSV23)] Future Scheduled MEDICARE AWV [facility] [employer] Test (Initial) [code = of Medicin e MEDICARE AWV (Initial)] Future Scheduled COLON CANCER [facility] [employer] Test SCREENING: of Medicine COLONOSCOPY [code = COLON CANCER SCREENING: COLONOSCOPY] Future Scheduled COVID-19 Vaccine [facility] [employer] Test Evaluation [code = of Medici ne COVID-19 Vaccine Evaluation] Future Scheduled TETANUS SHOT (ADULT) [employer] Test [code = TETANUS SHOT of Medi cine (ADULT)] Future Scheduled BMI FOLLOW UP PLAN [employer] Test [code = BMI FOLLOW of Medici ne UP PLAN] Future Scheduled HEPATITIS C [facility] [employer] Test SCREENING [code = of Medicin e HEPATITIS C SCREENING] Future Scheduled ZOSTER VACCINE (1 of [employer] Test 2) [code = ZOSTER of Medicin e VACCINE (1 of 2)] Future Scheduled FALL SCREEN [code = [employer] FALL SCREEN] of Medicine Future Scheduled PNEUMOVAX >=65 [facility] [employer] Test (PPSV23) [code = of Medicine PNEUMOVAX >=65 (PPSV23)] Future Scheduled MEDICARE AWV [facility] [employer] Test (Initial) [code = of Medicin e MEDICARE AWV (Initial)] Future Scheduled COLON CANCER [facility] [employer] Test SCREENING: of Medicine COLONOSCOPY [code = COLON CANCER SCREENING: COLONOSCOPY] Future Scheduled QUANTIFERON TB GOLD Ordered: [employer] PLUS 4 TUBES [code = 07/07/2020 of Medi ticketscript 71879-5] Future Scheduled HEPATITIS C ANTIBODY Ordered: [employer] Test [code = 93648-2] 07/07/2020 of Medicine Future Scheduled HEPATITIS B SURFACE Ordered: [employer] ANTIGEN [code = 07/07/2020 of Medicine 5196-1] Future Scheduled HEPATITIS B SURFACE Ordered: [employer] AB QUANT [code = 07/07/2020 of Medicine 64570-6] Future Scheduled HEP B CORE ANTIBODY, Ordered: [employer] TOTAL [code = 96131] 07/07/2020 of Medi cine Future Scheduled SEDIMENTATION RATE Ordered: [employer] MODIFIED WESTERGREN 07/07/2020 of Medic ine [code = 4537-7] Future Scheduled C-REACTIVE PROTEIN Ordered: [employer] Test [code = 1988-5] 07/07/2020 of Medicine Future Scheduled TETANUS SHOT (ADULT) [employer] Test [code = TETANUS SHOT of Medi cine (ADULT)] Future Scheduled BMI FOLLOW UP PLAN [employer] Test [code = BMI FOLLOW of Medici ne UP PLAN] Future Scheduled Hepatitis C [facility] Test screening of Medicine (procedure) [code = 513910516] Future Scheduled ZOSTER VACCINE (1 of [employer] Test 2) [code = ZOSTER of Medicin e VACCINE (1 of 2)] Future Scheduled FALL SCREEN [code = [employer] FALL SCREEN] of Medicine Future Scheduled PNEUMOVAX >=65 [facility] [employer] Test (PPSV23) [code = of Medicine PNEUMOVAX >=65 (PPSV23)] Future Scheduled MEDICARE AWV [facility] [employer] Test (Initial) [code = of Medicin e MEDICARE AWV (Initial)] Future Scheduled Screening for [facility] Col lege Test malignant neoplasm of Medici ne of colon (procedure) [code = 093143865] Future Scheduled TETANUS SHOT (ADULT) [employer] Test [code = TETANUS SHOT of Medi cine (ADULT)] Future Scheduled BMI FOLLOW UP PLAN [employer] Test [code = BMI FOLLOW of Medici ne UP PLAN] Future Scheduled ZOSTER VACCINE (1 of [employer] Test 2) [code = ZOSTER of Medicin e VACCINE (1 of 2)] Future Scheduled FALL SCREEN [code = [employer] FALL SCREEN] of Medicine Future Scheduled PNEUMOVAX >=65 [facility] [employer] Test (PPSV23) [code = of Medicine PNEUMOVAX >=65 (PPSV23)] Future Scheduled MEDICARE AWV [facility] [employer] Test (Initial) [code = of Medicin e MEDICARE AWV (Initial)] Future Scheduled FLU VACCINE > 6 [facility] C [employer]lege Test MONTHS [code = FLU of Medici ne VACCINE > 6 MONTHS] Future Scheduled Screening for [facility] Col [facility]ge Test malignant neoplasm of Medici ne of colon (procedure) [code = 481799172] Future Scheduled MO DESTRUC Ordered: [facility] [employer] Test PREMALIGNANT, FIRST 2019 of Medic ine LESION(27050) [code = 77032] Future Scheduled MO DESTRUC Ordered: [facility] [employer] Test PREMALIGNANT,2-14 2019 of Medicin e LESIONS(44967) [code = 75538] Future Scheduled TETANUS SHOT (ADULT) [employer] Test [code = TETANUS SHOT of Medi cine (ADULT)] Future Scheduled BMI FOLLOW UP PLAN [employer] Test [code = BMI FOLLOW of Medici ne UP PLAN] Future Scheduled HEPATITIS C [facility] [employer] Test SCREENING [code = of Medicin e HEPATITIS C SCREENING] Future Scheduled FALL SCREEN [code = [employer] FALL SCREEN] of Medicine Future Scheduled PNEUMOVAX >=65 [facility] [employer] Test (PPSV23) [code = of Medicine PNEUMOVAX >=65 (PPSV23)] Future Scheduled PREVNAR >= 65 [facility] Col [facility]ge Test (PCV13) [code = of Medicine PREVNAR >= 65 (PCV13)] Future Scheduled MEDICARE AWV [facility] Test (Initial) [code = of Medicin e MEDICARE AWV (Initial)] Future Scheduled FLU VACCINE > 6 [facility] C [employer]lege Test MONTHS [code = FLU of Medici ne VACCINE > 6 MONTHS] Future Scheduled COLON CANCER [facility] [employer] Test SCREENING: of Medicine COLONOSCOPY [code = COLON CANCER SCREENING: COLONOSCOPY] Future Scheduled SEDIMENTATION RATE Ordered: [employer] MODIFIED SARA 2019 of Medic ine [code = 4537-7] Future Scheduled C-REACTIVE PROTEIN Ordered: [employer] Test [code = 1988-5] 2019 of Medicine Future Scheduled CBC W/AUTO DIFF WITH Ordered: [employer] PLATELETS [code = 2019 of Medicin e 87699-5] Future Scheduled COMPREHENSIVE Ordered: [facility] Col [employer]ge Test METABOLIC PANEL 2019 of Medicine [code = 12829-7] Future Scheduled TETANUS SHOT (ADULT) [employer] Test [code = TETANUS SHOT of Medi cine (ADULT)] Future Scheduled BMI FOLLOW UP PLAN [employer] Test [code = BMI FOLLOW of Medici ne UP PLAN] Future Scheduled HEPATITIS C [facility] [employer] Test SCREENING [code = of Medicin e HEPATITIS C SCREENING] Future Scheduled FALL SCREEN [code = [employer] FALL SCREEN] of Medicine Future Scheduled PNEUMOVAX >=65 [facility] [employer] Test (PPSV23) [code = of Medicine PNEUMOVAX >=65 (PPSV23)] Future Scheduled PREVNAR >= 65 [facility] Col [facility]ge Test (PCV13) [code = of Medicine PREVNAR >= 65 (PCV13)] Future Scheduled MEDICARE AWV [facility] [employer] Test (Initial) [code = of Medicin e MEDICARE AWV (Initial)] Future Scheduled FLU VACCINE > 6 [facility] C [employer]lege Test MONTHS [code = FLU of Medici ne VACCINE > 6 MONTHS] Future Scheduled COLON CANCER [facility] [employer] Test SCREENING: of Medicine COLONOSCOPY [code = COLON CANCER SCREENING: COLONOSCOPY] Future Scheduled XR SACROILIAC JOINTS 1 Occurrences [employer] PA AND LATERAL [code starting of Medi cine = 12654] 2019 until 05/03/2020 Encounters Start End Encounter Admission Attending Care Care Encounter Source Date/Time Date/Time Type Type Clinicians Facility Department ID 2021-02-27 Emergency [facility] [id number] Univers 10:39:20 [facility] 2021-02-24 Outpatient Dulce KELLOGG [facility] CORY [id number] Univers 19:16:39 MATT [facility] 2021-08-01 2021-08-01 Outpatient DENYS CISNEROS [facility] [id number] Univers 11:00:00 11:00:00 DENYS CANO [id number] [facility] 2021-05-27 2021-05-27 Office OMAR PATRICIO 1.2.840.114 [id number] [facility] 08:50:18 10:25:27 Visit FREDA AMBULATOR 350.1.13.21 College Y 0.2.7.2.686 of [id number] Medi freda 300 e 2021-02-15 2021-02-15 Outpatient [facility] [id number] Univers 16:00:00 16:00:00 [facility] 2021-02-15 2021-02-15 Imm/Inj Nurse, Adc Pob Immunization [facility] 1.2.840.114 [id number] Univers 15:38:40 15:39:03 Visit Kyler Sanz 350.1.13 .10 [place] [facility] [address] [phone] Me dical nal 421 [facility] 2021-01-18 2021-01-18 Outpatient CAROLINE BRISENO [facility] [id number] [facility] 10:38:45 11:24:41 Colleg e of Medicin e 2020-12-23 2020-12-23 Outpatient R [facility] [id number] Univers 13:30:00 13:30:00 [id number] ity [facility] 2020-12-23 2020-12-23 Outpatient R [facility] [id number] Univers 13:30:00 13:30:00 ity [facility] 2020-11-08 2020-11-08 Day [facility] [id number] Memoria 11:28:00 20:08:00 Surgery r [place] 00 l [facility] 2020-11-08 2020-11-08 Outpatient ROSA [facility] 7500 Memoria 06:28:00 15:08:00 YIMI crews [facility] 2020-09-16 2020-09-16 Large Animal Veterinarian Vls-Lab [facility] 1.2.840.114 [id number] Univers 16:29:36 16:44:36 Visit Samm Anne SPECIALTY 350.1.13.10 ity [place] AT [phone] Sc francheska GODOY 353 [facility] 2020-09-16 2020-09-16 Office Niecy ReddingEed [facility] 1.2.840.114 [id number] Univers 15:09:09 16:30:05 Visit Samm Anne SPECIALTY 350.1.13.10 ity [place] AT [phone] Sc dicdeniz GODOY 072 [facility] 2020-09-16 2020-09-16 Outpatient R HALINA [facility] [id number] Univers 16:00:00 16:00:00 SAMM ity [facility] 2020-09-16 2020-09-16 Outpatient R MENDOZA [facility] [id number] Univers 11:00:00 11:00:00 MICHELLE [id number] ity [facility] 2020-09-16 2020-09-16 [facility] 1.2.200.074 [id number] Univers 10:26:39 10:54:41 Visit Michelle Everett 350.1.13.10 i ty of [place] Profess[place] [phone] Sc dical [address] 2020-09-16 2020-09-16 Orders Doctor CAROLINE 1.2.840.114 [id number] Univers 00:00:00 00:00:00 Only Unassigned, ANNA 350.1.13.10 ity of [place] [facility] 4.2.7.2.686 Xavier as [phone] [facility] [address] 2020-08-31 2020-08-31 Office Vania, [place] 1.2.840.114 [id number] [facility] 10:39:55 12:49:58 Visit Mona AMBULATOR 350.1.13.21 College Y 0.2.7.2.686 of [id number] [facility] 370 e 2020-08-19 2020-08-19 [facility] 1.2.003.312 [id number] 10:59:57 12:01:37 Visit Michelle Everett 350.1.13.10 Yann 4.2.7.2.686 Professio [phone] [address] 2020-08-19 2020-08-19 [facility] 1.2.410.250 [id number] Univers 10:59:57 12:01:37 Visit Michelle Everett 350.1.13.10 i ty [place] Profess[place] [phone] Sc dical [address] 2020-08-19 2020-08-19 Outpatient R MENDOZA [facility] [id number] Univers 11:15:00 11:15:00 MICHELLE avilaval of [facility] 2020-08-12 2020-08-[address] [facility] 1.2.840.114 [id number] Univers 09:49:07 10:42:31 Visit Kelvin Everett 350.1.13.10 ity of [place] Profess[place] [phone] Sc dical nal [address] 2020-08-12 2020-08-12 Outpatient R FLAVIO [facility] [id number] Univers 10:00:00 10:00:00 KELVIN hay o f [facility] 2020-08-06 2020-08-06 Transition Gonzalez Lester 1.2.840.114 [id number] Univers 00:00:00 00:00:00 of Care Evaristo Harding 350.1.13.10 ity of [place] [phone] [facility] [address] 2020-08-02 2020-08-[address] [facility] 1.2.840.1 [id number] Univers 09:50:00 16:10:00 Encounter Maria Luisa Shi 350.1.13.10 ity of [place] [phone] [facility] [address] 2020-08-04 2020-08-[address] [facility] 1.2.234.512 [id number] Univers 13:10:00 16:10:00 Michelle Everett 350.1.13.10 i ty [place] Surgical [phone] [facility] 0[address] 2020-07-07 2020-07-07 Office OMAR Caro 1.2.840.114 [id number] [facility] 09:05:27 09:35:27 Visit Mona AMBULATOR 350.1.13.21 College Y 0.2.7.2.686 of [id number] [facility] 370 e 2020-06-30 2020-06-30 Outpatient [facility] [id number] Univers 10:10:00 10:10:00 [id number] [facility] 2020-06-30 2020-06-30 Outpatient Dulce DURAN [facility] [id number] Univers 10:10:00 10:10:00 JOSE ENRIQUE [facility] 2020-06-09 2020-06-09 Outpatient Dulce DURAN [facility] [id number] Univers 12:00:00 12:00:00 JOSE ENRIQUE [id number] [facility] 2020-06-09 2020-06-09 Outpatient Dulce DURAN, [facility] [id number] Univers 12:00:00 12:00:00 JOSE ENRIQUE [facility] 2020-06-02 2020-06-02 Office OMAR Patricio 1.2.840.114 [id number] [facility] 15:49:42 17:57:43 Visit Freda I AMBULATOR 350.1.13.21 College Y 0.2.7.2.686 of [id number] Medi freda 300 e 2020-05-26 2020-05-26 Office Jennifer Zimmerman 1.2.840.114 [id number] [facility] 09:40:15 10:29:41 Visit Torres AMBULATOR 350.1.13.21 College Y 0.2.7.2.686 of [id number] Medi freda 300 e 2020-05-07 2020-05-08 Outpt Diag nullFlavo [facility] [id number] Memoria 21:15:00 05:59:00 Services r Outpatient 01 l Imaging Juve Vargas 2020-04-08 2020-04-08 Office Jennifer Zimmerman 1.2.840.114 [id number] [facility] 09:00:56 09:59:04 Visit Torres AMBULATOR 350.1.13.21 College Y 0.2.7.2.686 of [id number] Medi freda 300 e 2020-01-08 2020-01-08 Office OMAR Caro 1.2.840.114 [id number] [facility] 09:16:25 10:09:01 Visit Mona AMBULATOR 350.1.13.21 College Y 0.2.7.2.686 of [id number] [facility] 370 e 2019-12-05 2019-12-[address] [facility] 1.2.840.114 [id number] Univers 09:38:06 10:30:21 Visit Denys Everett 350.1.13.10 ity of [place] Profess[place] [phone] [address] 2019-12-05 2019-12-05 Outpatient R DENYS CANO [facility] [id number] Univers 09:40:00 09:40:00 DENYS CANO [id number] ity [facility] 2019-12-05 2019-12-05 Outpatient R DENYS CANO [facility] [id number] Univers 09:40:00 09:40:00 DENYS CANO ity [facility] 2019-12-03 2019-12-03 Orders Doctor CAROLINE 1.2.840.114 [id number] Univers 00:00:00 00:00:00 Only Unassigned, ANNA 350.1.13.10 [facility] 4.2.7.2.686 Xavier as [phone] [place] [address] [address] 2019-12-02 2019-12-[address] [facility] 1.2.840.114 [id number] Univers 00:00:00 00:00:00 Denys Everett 350.1.13.10 it[place] of [place] Profess[place] [phone] [address] 2019-11-28 2019-11-[address] [facility] 1.2.840.114 [id number] Univers 09:27:35 10:02:19 Visit Denys Everett 350.1.13.10 ity of [place] Profess[place] [phone] [address] 2019-11-28 2019-11-28 Outpatient DENYS CANO [facility] [id number] Univers 09:40:00 09:40:00 DENYS CANO [id number] ity [facility] 2019-11-28 2019-11-28 Outpatient R RADHA DENYS [facility] [id number] Univers 09:40:00 09:40:00 DENYS CANO val [facility] 2019-11-25 2019-11-25 Outpatient R CLIVE [facility] [id number] Univers 09:30:00 09:30:00 EDWIN [id number] ity [facility] 2019-11-18 2019-11-18 Outpatient R CEE, [facility] [id number] -[id number] Univers 09:30:00 09:30:00 HILARIO [id number] ity o f [facility] 2019-11-18 2019-11-18 Outpatient R JAYE [facility] [id number] Univers 09:30:00 09:30:00 HILARIO gramajoval o f [facility] 2019-10-17 2019-10-[address] [facility] 1.2.840.114 [id number] Univers 08:30:23 09:40:35 Visit Denys Everett 350.1.13.10 [facility] 4.2.7.2.686 [facility] [phone] Sc dical nal [address] [facility] 2019-10-17 2019-10-17 Outpatient DENYS CISNEROS [facility] [id number] Univers 08:40:00 08:40:00 DENYS CANO [id number] [facility] 2019-10-17 2019-10-17 Outpatient DENYS CISNEROS [facility] [id number] Univers 08:40:00 08:40:00 DENYS CANO [facility] 2019-10-10 2019-10-10 Outpatient DENYS CISNEROS [facility] [id number] Univers 10:00:00 10:00:00 DENYS CANO [id number] [facility] 2019-10-10 2019-10-10 Outpatient DENYS CISNEROS [facility] [id number] Univers 10:00:00 10:00:00 DENYS CANO [facility] [address] Caro 1.2.840.114 [id number] [facility] 11:45:56 12:30:56 Visit Mona AMBULATOR 350.1.13.21 College Y 0.2.7.2.686 of [id number] Medi freda 370 e 2019 2019 Office Jennifer Zimmerman [facility] 1.2.840.114 [id number] [facility] 10:00:29 10:37:24 Visit Torres AMBULATOR 350.1.13.21 College Y 0.2.7.2.686 of [id number] Medi freda 300 e 2019 2019 Outpatient RAND CARO, [facility] [id number] SLE 00:00:00 00:00:00 [facility] 2019-08-29 2019-08-29 [facility] 1.2.840.114 [id number] Univers 05:48:00 08:55:00 Encounter Matt Everett 350.1.13.10 ity [place] [id number] [facility] [address] [place] 2019-08-29 2019-08-29 Anesthesia Neto Argueta [facility] 1.2.840.11 [id number] Univers 06:41:00 07:35:00 Price Mccauley 35 0.1.13.10 ity [place] [phone] [facility] [address] 2019-08-28 2019-08-28 Laboratory Nurse, [facility] General Surgery [facility] 1.2.840.114 [id number] Univers 09:40:38 09:52:05 Only Matt Kellogg 350.1. 13.10 ity of [place] [phone] Sc dical nal 377 [facility] 2019-08-28 2019-08-28 Outpatient [facility] [id number] Univers 09:45:00 09:45:00 [id number] ity of [facility] 2019-08-28 2019-08-28 Outpatient R [facility] [id number] Univers 09:45:00 09:45:00 ity [facility] 2019-08-28 2019-08-28 Telephone [facility] 1.2.840.114 [id number] Univers 00:00:00 00:00:00 Matt Everett 350.1.13.10 it[place] of [place] [id number] [address] 2019-08-25 2019-08-25 Outpatient R [facility] [id number] Univers 11:30:00 11:30:00 MATT hay [facility] 2019-08-25 2019-08-25 Outpatient R [facility] [id number] [facility] 11:15:00 11:15:00 [id number] [facility]-07-18 2019-07-18 Orders Doctor CAROLINE [id number] Univers 00:00:00 00:00:00 Only Unassigned, ANNA [id number] it[place] of [place] [facility] [id number] Xavier as [id number] [address] Results Test Description Test Time Test Comments Results Result Comments Source POCT URINALYSIS DIPSTICK 2021-05-27 00:00:00 Test Item Value Reference Range Interpretation Comme nts COLOR UA (test code = 5778-6) Yellow YELLOW/STRAW CLARITY UA (test code = 65271-3) Clear CLEAR GLUCOSE UA (test code = 5792-7) Negative NEGATIVE BILIRUBIN UA (test code = 5770-3) Negative NEGATIVE KETONES UA (test code = 39215-9) Negative NEGATIVE SPECIFIC GRAVITY UA (test code = 5811-5) 1.005-1.035 BLOOD UA (test code = 5794-3) Negative NEGATIVE PH UA (test code = 5803-2) 5-9 PROTEIN UA (test code = 5804-0) Trace NEGATIVE UROBILINOGEN UA (test code = 5818-0) 0.02 E.U/DL NORMAL MG/DL LEUKOCYTE ESTERASE UA (test code = 5799-2) Negative NEGATIVE NITRITE UA (test code = 5802-4) Negative NEGATIVE REDUCING SUBSTANCES URINE (test code = 10665-2) [facility],[id number] 00:00:00 Test Item Value Reference Range Interpretation Comments PVR (test code = 6116) cc/ml [facility] - [id number] 16:00:00Negative (10/29/20 11:00 AM)[facility] METABOLIC PANEL ([id number])2020-08-05 12:58:02 Test Item Value Reference Range Interpretation Comments NA (test code = 135 mmol/L 135-145 0997728790) K (test code = 4.2 mmol/L 3.5-5.0 7289902099) CL (test code = 105 mmol/L 98-108 2699381036) CO2 TOTAL (test code = 23 mmol/L 23-31 7652656684) AGAP (test code = 2-16 0330962042) BUN (test code = 20 mg/dL 7-23 2800420814) GLUCOSE (test code = 111 mg/dL 70-110 H 8762870638) CREATININE (test code = 1.02 mg/dL 0.60-1.25 1829299141) TOTAL BILI (test code = 0.8 mg/dL 0.1-1.2 4858570259) CALCIUM (test code = 8.8 mg/dL 8.6-10.6 7096694071) T PROTEIN (test code = 5.7 g/dL 6.3-8.2 L 2168638414) ALBUMIN (test code = 3.4 g/dL 3.5-5.0 L 7325930403) ALK PHOS (test code = 100 U/L 34-122 5390496318) ALTv (test code = 325 U/L 5-50 H 1742-6) AST(SGOT) (test code = 152 U/L 13-40 H 5529947550) eGFR (test code = mL/min/1.73m2 8197325629) NARA (test code = NARA) Association of Glomerular Filtration Rate (GFR) and Staging of Kidney Disease* + --+ --+ ------+| GFR (mL/min/1.73 m2) ?| With Kidney Damage ?| ?Without Kidney Damage+ --------+ --------+ +| ?>90 ?| ?Stage one ?| ? Normal ?+ ---+ ---+ -------+| ?60-89 ?| ?Stage two ?| ? Decreased GFR ? + --+ --+ ------+| ?30-59 ?| ?Stage three ?| ? Stage three ? + --+ --+ ------+| ?15-29 ?| ?Stage four ? | ? Stage four ?+ ---+ ---+ -------+| ?<15 (or dialysis) ? ?| ?Stage five ? | ? Stage five ?+ ---+ ---+ -------+ *Each stage assumes the associated GFR level has been in effect for at least three months. ?Stages 1 to 5, with or without kidney disease, indicate chronic kidney disease. Notes: Determination of stages one and two (with eGFR >59mL/min/1.73 m2) requires estimation of kidney damage for at least three months as defined by structural or functional abnormalities of the kidney, manifested by either:Pathological abnormalities or Markers of kidney damage (including abnormalities in the composition of the blood or urine or abnormalities in imaging tests). Lab Interpretation Abnormal (test code = 54925-3) [facility]. METABOLIC PANEL ([id number])2020-08-05 12:58:02 Test Item Value Reference Range Interpretation Comments NA (test code = 135 mmol/L 135-145 4938720365) K (test code = 4.2 mmol/L 3.5-5.0 8826777828) CL (test code = 105 mmol/L 98-108 6815647072) CO2 TOTAL (test code = 23 mmol/L 23-31 6847068411) AGAP (test code = 2-16 5145667077) BUN (test code = 20 mg/dL 7-23 0435651063) GLUCOSE (test code = 111 mg/dL 70-110 H 3121108116) CREATININE (test code = 1.02 mg/dL 0.60-1.25 8964194938) TOTAL BILI (test code = 0.8 mg/dL 0.1-1.7 0764709595) CALCIUM (test code = 8.8 mg/dL 8.6-10.6 7664306017) T PROTEIN (test code = 5.7 g/dL 6.3-8.2 L 2429606105) ALBUMIN (test code = 3.4 g/dL 3.5-5.0 L 1322332187) ALK PHOS (test code = 100 U/L 34-122 2681454374) ALTv (test code = 325 U/L 5-50 H 1742-6) AST(SGOT) (test code = 152 U/L 13-40 H 5023056642) eGFR (test code = mL/min/1.73m2 7466776972) NARA (test code = NARA) Association of Glomerular Filtration Rate (GFR) and Staging of Kidney Disease* + --+ --+ ------+| GFR (mL/min/1.73 m2) ?| With Kidney Damage ?| ?Without Kidney Damage+ --------+ --------+ +| ?>90 ?| ?Stage one ?| ? Normal ?+ ---+ ---+ -------+| ?60-89 ?| ?Stage two ?| ? Decreased GFR ? + --+ --+ ------+| ?30-59 ?| ?Stage three ?| ? Stage three ? + --+ --+ ------+| ?15-29 ?| ?Stage four ? | ? Stage four ?+ ---+ ---+ -------+| ?<15 (or dialysis) ? ?| ?Stage five ? | ? Stage five ?+ ---+ ---+ -------+ *Each stage assumes the associated GFR level has been in effect for at least three months. ?Stages 1 to 5, with or without kidney disease, indicate chronic kidney disease. Notes: Determination of stages one and two (with eGFR >59mL/min/1.73 m2) requires estimation of kidney damage for at least three months as defined by structural or functional abnormalities of the kidney, manifested by either:Pathological abnormalities or Markers of kidney damage (including abnormalities in the composition of the blood or urine or abnormalities in imaging tests). Lab Interpretation Abnormal (test code = 35319-8) [facility] WITH [id number] 12:16:18 Test Item Value Reference Range Interpretation Comments WBC (test code = See_Comment H [Automated 5645-2) message] The system which generated this result transmit dieter reference range : 4.20 - 10.70 10*3/?L. The reference range was not used to interpret this result as normal/abnormal . RBC (test code = See_Comment [Automated 789-8) message] The system which generated this result transmit dieter reference range : 4.26 - 5.52 10*6/?L. The reference range was not used to interpret this result as normal/abnormal . HGB (test code = 13.6 g/dL 12.2-16.4 718-7) HCT (test code = 40.6 % 38.4-49.3 4544-3) MCV (test code = 91.9 fL 81.7-95.6 787-2) MCH (test code = 30.8 pg 26.1-32.7 785-6) MCHC (test code = 33.5 g/dL 31.2-35.0 786-4) RDW-SD (test code = 46.5 fL 38.5-51.6 88337-6) RDW-CV (test code = 13.7 % 12.1-15.4 788-0) PLT (test code = See_Comment L [Automated 777-3) message] The system which generated this result transmit dieter reference range : 150 - 328 10*3/ ?L. The reference range was not u sed to interpret th is result as normal/abnormal . MPV (test code = 11.3 fL 9.8-13.0 39290-7) NRBC/100 WBC (test See_Comment [Automat ed code = 9098167731) message] The system which generated this result transmit dieter reference range : 0.0 - 10.0 /100 WBCs. The reference range was not used to interpret this result as normal/abnormal . NRBC x10^3 (test code <0.01 See_Comment [Auto mated = 7400769662) message] The system which generated this result transmit dieter reference range : 10*3/?L. The reference range was not used to interpret this result as normal/abnormal . GRAN MAT (NEUT) % 87.2 % (test code = 770-8) IMM GRAN % (test code 0.40 % = 6394752819) LYMPH % (test code = 4.4 % 736-9) MONO % (test code = 7.9 % 5905-5) EOS % (test code = 0.0 % 713-8) BASO % (test code = 0.1 % 706-2) GRAN MAT x10^3(ANC) 11.65 10*3/uL 1.99-6.95 H (test code = 6480506776) IMM GRAN x10^3 (test 0.06 10*3/uL 0.00-0.06 code = 8577593762) LYMPH x10^3 (test code 0.59 10*3/uL 1.09-3.23 L = 731-0) MONO x10^3 (test code 1.05 10*3/uL 0.36-1.02 H = 742-7) EOS x10^3 (test code = <0.03 0.06-0.53 L 711-2) BASO x10^3 (test code <0.03 0.01-0.09 = 704-7) Lab Interpretation Abnormal (test code = 39455-2) [facility] WITH [id number] 12:16:18 Test Item Value Reference Range Interpretation Comments WBC (test code = See_Comment H [Automated 5590-2) message] The system which generated this result transmit dieter reference range : 4.20 - 10.70 10*3/?L. The reference range was not used to interpret this result as normal/abnormal . RBC (test code = See_Comment [Automated 009-8) message] The system which generated this result transmit dieter reference range : 4.26 - 5.52 10*6/?L. The reference range was not used to interpret this result as normal/abnormal . HGB (test code = 13.6 g/dL 12.2-16.4 718-7) HCT (test code = 40.6 % 38.4-49.3 4544-3) MCV (test code = 91.9 fL 81.7-95.6 787-2) MCH (test code = 30.8 pg 26.1-32.7 785-6) MCHC (test code = 33.5 g/dL 31.2-35.0 786-4) RDW-SD (test code = 46.5 fL 38.5-51.6 95720-2) RDW-CV (test code = 13.7 % 12.1-15.4 788-0) PLT (test code = See_Comment L [Automated 777-3) message] The system which generated this result transmit dieter reference range : 150 - 328 10*3/ ?L. The reference range was not u sed to interpret th is result as normal/abnormal . MPV (test code = 11.3 fL 9.8-13.0 15278-8) NRBC/100 WBC (test See_Comment [Automat ed code = 0497477802) message] The system which generated this result transmit dieter reference range : 0.0 - 10.0 /100 WBCs. The reference range was not used to interpret this result as normal/abnormal . NRBC x10^3 (test code <0.01 See_Comment [Auto mated = 6823198744) message] The system which generated this result transmit dieter reference range : 10*3/?L. The reference range was not used to interpret this result as normal/abnormal . GRAN MAT (NEUT) % 87.2 % (test code = 770-8) IMM GRAN % (test code 0.40 % = 5322551455) LYMPH % (test code = 4.4 % 736-9) MONO % (test code = 7.9 % 5905-5) EOS % (test code = 0.0 % 713-8) BASO % (test code = 0.1 % 706-2) GRAN MAT x10^3(ANC) 11.65 10*3/uL 1.99-6.95 H (test code = 2525284135) IMM GRAN x10^3 (test 0.06 10*3/uL 0.00-0.06 code = 3536995182) LYMPH x10^3 (test code 0.59 10*3/uL 1.09-3.23 L = 731-0) MONO x10^3 (test code 1.05 10*3/uL 0.36-1.02 H = 742-7) EOS x10^3 (test code = <0.03 0.06-0.53 L 711-2) BASO x10^3 (test code <0.03 0.01-0.09 = 704-7) Lab Interpretation Abnormal (test code = 19149-9) [facility] TIME OR (NON-REPORTABLE)2020-08-04 20:05:13 These images do not require a Radiology diagnostic report.[facility] TIME OR (NON-REPORTABLE)2020-08-04 20:05:13These images do not require a Radiology diagnostic report.[facility] ([id number])2020-08-04 12:09:53 Test Item Value Reference Range Interpretation Comments NA (test code = 138 mmol/L 135-145 4520799243) K (test code = 4.1 mmol/L 3.5-5.0 0923309113) CL (test code = 108 mmol/L 98-108 5040920360) CO2 TOTAL (test code = 24 mmol/L 23-31 5364062358) AGAP (test code = 2-16 3476838633) BUN (test code = 19 mg/dL 7-23 1701402910) GLUCOSE (test code = 82 mg/dL 70-110 6511912688) CREATININE (test code = 1.12 mg/dL 0.60-1.25 5538278105) TOTAL BILI (test code = 1.1 mg/dL 0.1-1.5 9604389056) CALCIUM (test code = 8.8 mg/dL 8.6-10.6 4213105576) T PROTEIN (test code = 6.2 g/dL 6.3-8.2 L 8339130024) ALBUMIN (test code = 3.6 g/dL 3.5-5.0 9831500565) ALK PHOS (test code = 91 U/L 34-122 4574545120) ALTv (test code = 398 U/L 5-50 H 1742-6) AST(SGOT) (test code = 275 U/L 13-40 H 3852399628) eGFR (test code = mL/min/1.73m2 2735907893) NARA (test code = NARA) Association of Glomerular Filtration Rate (GFR) and Staging of Kidney Disease* + --+ --+ ------+| GFR (mL/min/1.73 m2) ?| With Kidney Damage ?| ?Without Kidney Damage+ --------+ --------+ +| ?>90 ?| ?Stage one ?| ? Normal ?+ ---+ ---+ -------+| ?60-89 ?| ?Stage two ?| ? Decreased GFR ? + --+ --+ ------+| ?30-59 ?| ?Stage three ?| ? Stage three ? + --+ --+ ------+| ?15-29 ?| ?Stage four ? | ? Stage four ?+ ---+ ---+ -------+| ?<15 (or dialysis) ? ?| ?Stage five ? | ? Stage five ?+ ---+ ---+ -------+ *Each stage assumes the associated GFR level has been in effect for at least three months. ?Stages 1 to 5, with or without kidney disease, indicate chronic kidney disease. Notes: Determination of stages one and two (with eGFR >59mL/min/1.73 m2) requires estimation of kidney damage for at least three months as defined by structural or functional abnormalities of the kidney, manifested by either:Pathological abnormalities or Markers of kidney damage (including abnormalities in the composition of the blood or urine or abnormalities in imaging tests). Lab Interpretation Abnormal (test code = 73803-6) [facility] 12:09:53 Test Item Value Reference Range Interpretation Comments MAGNESIUM (test code = 3851650333) 1.9 mg/dL 1.7-2.4 Lab Interpretation (test code = Normal 29067-6) [facility]OL[facility] ([id number])2020-08-04 12:09:53 Test Item Value Reference Range Interpretation Comments NA (test code = 138 mmol/L 135-145 8356809289) K (test code = 4.1 mmol/L 3.5-5.0 2511823193) CL (test code = 108 mmol/L 98-108 9913229343) CO2 TOTAL (test code = 24 mmol/L 23-31 1848495575) AGAP (test code = 2-16 2520080252) BUN (test code = 19 mg/dL 7-23 0666738228) GLUCOSE (test code = 82 mg/dL 70-110 0305303948) CREATININE (test code = 1.12 mg/dL 0.60-1.25 8902946478) TOTAL BILI (test code = 1.1 mg/dL 0.1-1.9 3246078791) CALCIUM (test code = 8.8 mg/dL 8.6-10.6 8407159209) T PROTEIN (test code = 6.2 g/dL 6.3-8.2 L 3907764627) ALBUMIN (test code = 3.6 g/dL 3.5-5.0 7660683027) ALK PHOS (test code = 91 U/L 34-122 2014565167) ALTv (test code = 398 U/L 5-50 H 1742-6) AST(SGOT) (test code = 275 U/L 13-40 H 5168549149) eGFR (test code = mL/min/1.73m2 3344773628) NARA (test code = NARA) Association of Glomerular Filtration Rate (GFR) and Staging of Kidney Disease* + --+ --+ ------+| GFR (mL/min/1.73 m2) ?| With Kidney Damage ?| ?Without Kidney Damage+ --------+ --------+ +| ?>90 ?| ?Stage one ?| ? Normal ?+ ---+ ---+ -------+| ?60-89 ?| ?Stage two ?| ? Decreased GFR ? + --+ --+ ------+| ?30-59 ?| ?Stage three ?| ? Stage three ? + --+ --+ ------+| ?15-29 ?| ?Stage four ? | ? Stage four ?+ ---+ ---+ -------+| ?<15 (or dialysis) ? ?| ?Stage five ? | ? Stage five ?+ ---+ ---+ -------+ *Each stage assumes the associated GFR level has been in effect for at least three months. ?Stages 1 to 5, with or without kidney disease, indicate chronic kidney disease. Notes: Determination of stages one and two (with eGFR >59mL/min/1.73 m2) requires estimation of kidney damage for at least three months as defined by structural or functional abnormalities of the kidney, manifested by either:Pathological abnormalities or Markers of kidney damage (including abnormalities in the composition of the blood or urine or abnormalities in imaging tests). Lab Interpretation Abnormal (test code = 78466-5) [facility] 12:09:53 Test Item Value Reference Range Interpretation Comments MAGNESIUM (test code = 7647966788) 1.9 mg/dL 1.7-2.4 Lab Interpretation (test code = Normal 15388-8) [facility] WITH [id number] 11:48:50 Test Item Value Reference Range Interpretation Comments WBC (test code = See_Comment [Automated 6690-2) message] The sy stem which generated this result transmitted reference range : 4.20 - 10.70 10*3/?L. The reference range was not used to interpret this result as normal/abnormal . RBC (test code = See_Comment [Automated 789-8) message] The sy stem which generated this result transmitted reference range : 4.26 - 5.52 10*6/?L. The reference range was not used to interpret this result as normal/abnormal . HGB (test code = 13.4 g/dL 12.2-16.4 718-7) HCT (test code = 39.5 % 38.4-49.3 4544-3) MCV (test code = 90.8 fL 81.7-95.6 787-2) MCH (test code = 30.8 pg 26.1-32.7 785-6) MCHC (test code = 33.9 g/dL 31.2-35.0 786-4) RDW-SD (test code = 46.5 fL 38.5-51.6 07461-9) RDW-CV (test code = 13.8 % 12.1-15.4 788-0) PLT (test code = See_Comment L [Automated 777-3) message] The sy stem which generated this result transmitted reference range : 150 - 328 10*3/ ?L. The reference r nelson was not used to interpret this result as normal/abnormal . MPV (test code = 11.4 fL 9.8-13.0 26181-3) IPF % (test code = 3.1 % 1.2-10.7 Platelet count 2627355694) measured by fluorescence method. NRBC/100 WBC (test See_Comment [Automat ed code = 2806686012) message] The system which generated this result transmitted reference range : 0.0 - 10.0 /100 WBCs. The refer ence range was not u sed to interpret th is result as normal/abnormal . NRBC x10^3 (test code <0.01 See_Comment [Auto mated = 3721448201) message] The s ystem which generated this result transmitted reference range : 10*3/?L. The reference range was not used to interpret this result as normal/abnormal . GRAN MAT (NEUT) % 68.0 % (test code = 770-8) IMM GRAN % (test code 0.40 % = 0686301015) LYMPH % (test code = 19.9 % 736-9) MONO % (test code = 10.1 % 5905-5) EOS % (test code = 1.2 % 713-8) BASO % (test code = 0.4 % 706-2) GRAN MAT x10^3(ANC) 5.31 10*3/uL 1.99-6.95 (test code = 2411173333) IMM GRAN x10^3 (test 0.03 10*3/uL 0.00-0.06 code = 5994638869) LYMPH x10^3 (test code 1.55 10*3/uL 1.09-3.23 = 731-0) MONO x10^3 (test code 0.79 10*3/uL 0.36-1.02 = 742-7) EOS x10^3 (test code = 0.09 10*3/uL 0.06-0.53 711-2) BASO x10^3 (test code 0.03 10*3/uL 0.01-0.09 = 704-7) Lab Interpretation Abnormal (test code = 11989-8) [facility] WITH [id number] 11:48:50 Test Item Value Reference Range Interpretation Comments WBC (test code = See_Comment [Automated 7906-2) message] The sy stem which generated this result transmitted reference range : 4.20 - 10.70 10*3/?L. The reference range was not used to interpret this result as normal/abnormal . RBC (test code = See_Comment [Automated 181-8) message] The sy stem which generated this result transmitted reference range : 4.26 - 5.52 10*6/?L. The reference range was not used to interpret this result as normal/abnormal . HGB (test code = 13.4 g/dL 12.2-16.4 718-7) HCT (test code = 39.5 % 38.4-49.3 4544-3) MCV (test code = 90.8 fL 81.7-95.6 787-2) MCH (test code = 30.8 pg 26.1-32.7 785-6) MCHC (test code = 33.9 g/dL 31.2-35.0 786-4) RDW-SD (test code = 46.5 fL 38.5-51.6 34982-1) RDW-CV (test code = 13.8 % 12.1-15.4 788-0) PLT (test code = See_Comment L [Automated 777-3) message] The sy stem which generated this result transmitted reference range : 150 - 328 10*3/ ?L. The reference r nelson was not used to interpret this result as normal/abnormal . MPV (test code = 11.4 fL 9.8-13.0 21937-7) IPF % (test code = 3.1 % 1.2-10.7 Platelet count 5350266362) measured by fluorescence method. NRBC/100 WBC (test See_Comment [Automat ed code = 3044869458) message] The system which generated this result transmitted reference range : 0.0 - 10.0 /100 WBCs. The refer ence range was not u sed to interpret th is result as normal/abnormal . NRBC x10^3 (test code <0.01 See_Comment [Auto mated = 7805765116) message] The s ystem which generated this result transmitted reference range : 10*3/?L. The reference range was not used to interpret this result as normal/abnormal . GRAN MAT (NEUT) % 68.0 % (test code = 770-8) IMM GRAN % (test code 0.40 % = 9394847803) LYMPH % (test code = 19.9 % 736-9) MONO % (test code = 10.1 % 5905-5) EOS % (test code = 1.2 % 713-8) BASO % (test code = 0.4 % 706-2) GRAN MAT x10^3(ANC) 5.31 10*3/uL 1.99-6.95 (test code = 7219639028) IMM GRAN x10^3 (test 0.03 10*3/uL 0.00-0.06 code = 4573161503) LYMPH x10^3 (test code 1.55 10*3/uL 1.09-3.23 = 731-0) MONO x10^3 (test code 0.79 10*3/uL 0.36-1.02 = 742-7) EOS x10^3 (test code = 0.09 10*3/uL 0.06-0.53 711-2) BASO x10^3 (test code 0.03 10*3/uL 0.01-0.09 = 704-7) Lab Interpretation Abnormal (test code = 38328-9) [facility] [id number] 03:22:05COVID DMT InterpretationInterpretation/Recommendations: Molecular NAAT Tests for Active Infection with the SARS-CoV-2 Virus: The patient has currently tested negative for the SARS-CoV-2 virus that causes COVID-19 illness. This most likely indicates that the patient does not have an active infection with the SARS-CoV-2 virus. However, infection is not completely ruled out as the false negative rate for molecular NAAT testing using a nasopharyngeal sample can be up to 30%, mostly dependent on the timing of sample collection in relation to illness onset and any deficiencies in sampling techniques. If the patient has symptoms concerning for COVID-19 illness, a repeat NAAT test (PCR, Rapid ID Now, etc.) should be performed, at which time the SARS-CoV-2 virus - if present - may have reached a detectable viral load (usually peaking by the end of the first week of symptoms). Tests for IgM and/or IgGAntibodies to the SARS-CoV-2 Virus: If the patient develops COVID-19 illness in the future, testingfor IgM and IgG antibodies approximately 3 weeks after illness onset will likely indicate if the patient has produced antibodies to the SARS-CoV-2 virus. However, some patients may take longer to develop detectable antibodies, while some patients who were infected with SARS-CoV-2 may never develop antibodies. While antibodies to SARS-CoV-2 may provide some degree of immunity, at this time the strength and duration of the antibody response is unknown. Interpretation Result Comments:These interpretation comments are based upon all COVID-19 testing the patient has had at [facility], including molecular NAAT testing (more commonly known as PCR testing and Rapid ID Now testing) and antibody testing. It does not take into account any testing that a patient has had outside of the [facility] medical record. [facility] LABORATORY SERVICESCOVID Resu [id number] Rapid ID NOW (no units) ? ? Date ? Value ? 08/02/2020 ? Not Detected ? ? ? 08/28/2019 ? Not Detected ? [facility] SERVICESUn[facility] COVID [id number] 03:22:05COVID DMT InterpretationInterpretation/Recommendations: Molecular NAAT Tests for Active Infection with the SARS-CoV-2 Virus: The patient has currently tested negative for the SARS-CoV-2 virus that causes COVID-19 illness. This most likely indicates that the patient does not have an active infection with the SARS-CoV-2 virus. However, infection is not completely ruled out as the false negative rate for molecular NAAT testing using a nasopharyngeal sample can be up to 30%, mostly dependent on the timing of sample collection in relation to illness onset and any deficiencies in sampling techniques. If the patient has symptoms concerning for COVID-19 illness, a repeat NAAT test (PCR, Rapid ID Now, etc.) should be performed, at which time the SARS-CoV-2 virus - if present - may have reached a detectable viral load (usually peaking by the end of the first week of symptoms). Tests for IgM and/or IgGAntibodies to the SARS-CoV-2 Virus: If the patient develops COVID-19 illness in the future, testingfor IgM and IgG antibodies approximately 3 weeks after illness onset will likely indicate if the patient has produced antibodies to the SARS-CoV-2 virus. However, some patients may take longer to develop detectable antibodies, while some patients who were infected with SARS-CoV-2 may never develop antibodies. While antibodies to SARS-CoV-2 may provide some degree of immunity, at this time the strength and duration of the antibody response is unknown. Interpretation Result Comments:These interpretation comments are based upon all COVID-19 testing the patient has had at [facility], including molecular NAAT testing (more commonly known as PCR testing and Rapid ID Now testing) and antibody testing. It does not take into account any testing that a patient has had outside of the [facility] medical record[facility] LABORATORY SERVICESCOVID Resu [id number] Rapid ID NOW (no units) ? ? Date ? Value ? 08/02/2020 ? Not Detected ? ? ? 08/28/2019 ? Not Detected ? [facility] W WO CONTRAST [id number] 20:55:59HISTORY: Abnormal ultrasound and CT findings of dilated biliary ducts. Ruleout choledochal stone. TECHNIQUE: MRI studies of the abdomen were obtained using T2 SSFSE, dualecho FSPGR, coronal VIBE/T2 HASTE, axial DWI, axial LAVA/T2 HASTEsequences. Several MRCP sequences are obtained. Multi phase contrast-enhanced fat-satT1 LAVA imaging completed following intravenous injection of 16 mL ofProHance. FINDINGS: Comparison has been made with today's CT scan and abdominalultrasound studies. Lower portions of the lung included in this examination appear clear. Nodefinite indication of hiatal hernia. Liver is of normal size and showed several hyperintense lesions scatteredin both right and left lobes consistent with hepatic cysts. Spleen appearsnormal. Kidneys showed Bosniak type I cystic lesions. No hydronephrosis. No aorticaneurysm or enlarged lymph nodes in the retroperitoneum. The adrenal glands and pancreas appear normal. GALLBLADDER AND BILE DUCTS: Dilated biliary ducts and distended gallbladdernoted with ?long cystic duct with low insertion into the proximal commonbile duct. Common bile duct is 13 to 14 mm in diameter and the gallbladdermeasures approximately 10 x 3.7 cm. Pancreatic duct joining the common bileduct with single entrance into the duodenum noted. Diverticulum is seen inthe duodenum adjacent to the ampulla. CONCLUSIONS:1. Dilated extrahepatic bile ducts with minimally dilated centralintrahepatic bile ducts and mildly hydropic gallbladder without any stone.Long cystic duct with low insertion into common duct noted. No tumorvisualized in the pancreas.2. Several cystic lesions in the liver and in both kidneys. ?[facility], Radiant Results Inft User - 08/03/2020 3:57 PM CDTHISTORY: Abnormal ultrasound and CT findings of dilated biliary ducts. Ruleout choledochal stone.TECHNIQUE: MRI studies of the abdomen were obtained using T2 SSFSE, dualecho FSPGR, coronal VIBE/T2 HASTE, axial DWI,axial LAVA/T2 HASTEsequences.Several MRCP sequences are obtained. Multi phase contrast-enhanced fat-satT1 LAVA imaging completed following intravenous injection of 16 mL ofProHance.FINDINGS: Comparisonhas been made with today's CT scan and abdominalultrasound studies.Lower portions of the lung included in this examination appear clear. Nodefinite indication of hiatal hernia.Liver is of normal size and showed several hyperintense lesions scatteredin both right and left lobes consistent with hepatic cysts. Spleen appearsnormal.Kidneys showed Bosniak type I cystic lesions. No hydronephrosis. No aorticaneurysm or enlarged lymph nodes in the retroperitoneum.The adrenal glands and pancreas appear normal.GALLBLADDER AND BILE DUCTS: Dilated biliary ducts and distended gallbladdernoted with long cystic duct with low insertion into the proximal commonbile duct. Common bile duct is 13 to 14 mm in diameter and the gallbladdermeasures approximately 10 x 3.7 cm. Pancreatic duct joining the common bileduct with single entrance into the duodenum noted. Diverticulum is seen inthe duodenum adjacent to the ampulla.CONCLUSIONS:1. Dilated extrahepatic bile ducts with minimally dilated centralintrahepatic bile ducts and mildly hydropic gallbladder without any stone.Long cystic duct with low insertion into common duct noted. No tumorvisualized in the pancreas.2. Several cystic lesions in the liver and in both kidneys.[facility] ABDOMEN W WO CONTRAST [id number] 20:55:59HISTORY: Abnormal ultrasound and CT findings of dilated biliary ducts. Ruleout choledochal stone. TECHNIQUE: MRI studies of the abdomen were obtained using T2 SSFSE, dualecho FSPGR, coronal VIBE/T2 HASTE, axial DWI, axial LAVA/T2 HASTEsequences. Several MRCP sequences are obtained. Multi phase contrast-enhanced fat-satT1 LAVA imaging completed following intravenous injection of 16 mL ofProHance. FINDINGS: Comparison has been made with today's CT scan and abdominalultrasound studies. Lower portions of the lung included in this examination appear clear. Nodefinite indication of hiatal hernia. Liver is of normal size and showed several hyperintense lesions scatteredin both right and left lobes consistent with hepatic cysts. Spleen appearsnormal. Kidneys showed Bosniak type I cystic lesions. No hydronephrosis. No aorticaneurysm or enlarged lymph nodes in the retroperitoneum. The adrenal glands and pancreas appear normal. GALLBLADDER AND BILE DUCTS: Dilated biliary ducts and distended gallbladdernoted with ?long cystic duct with low insertion into the proximal commonbile duct. Common bile duct is 13 to 14 mm in diameter and the gallbladdermeasures approximately 10 x 3.7 cm. Pancreatic duct joiningthe common bileduct with single entrance into the duodenum noted. Diverticulum is seen inthe duodenum adjacent to the ampulla. CONCLUSIONS:1. Dilated extrahepatic bile ducts with minimally dilated cent ralintrahepatic bile ducts and mildly hydropic gallbladder without any stone.Long cystic duct with low insertion into common duct noted. No tumorvisualized in the pancreas.2. Several cystic lesions in the liver and in both kidneys. ?[facility], Radiant Results Inft User - 08/03/2020 3:57 PM CDTHISTORY: Abnormal ultrasound and CT findings of dilated biliary ducts. Ruleout choledochal stone.TECHNIQUE: MRI studies of the abdomen were obtained using T2 SSFSE, dualecho FSPGR, coronal VIBE/T2 HASTE, axial DWI,axial LAVA/T2 HASTEsequences.Several MRCP sequences are obtained. Multi phase contrast- enhanced fat-satT1 LAVA imaging completed following intravenous injection of 16 mL ofProHance.FINDINGS: Comparisonhas been made with today's CT scan and abdominalultrasound studies.Lower portions of the lung included in this examination appear clear. Nodefinite indication of hiatal hernia.Liver is of normal size and showed several hyperintense lesions scatteredin both right and left lobes consistent with hepatic cysts. Spleen appearsnormal.Kidneys showed Bosniak type I cystic lesions. No hydronephrosis. No aorticaneurysm or enlarged lymph nodes in the retroperitoneum.The adrenal glands and pancreas appear normal .GALLBLADDER AND BILE DUCTS: Dilated biliary ducts and distended gallbladdernoted with long cystic duct with low insertion into the proximal commonbile duct. Common bile duct is 13 to 14 mm in diameter and the gallbladdermeasures approximately 10 x 3.7 cm. Pancreatic duct joining the common bileduct with single entrance into the duodenum noted. Diverticulum is seen inthe duodenum adjacent to the ampulla.CONCLUSIONS:1. Dilated extrahepatic bile ducts with minimally dilated centralintrahepatic bile ducts and mildly hydropic gallbladder without any stone.Long cystic duct with low insertion into common duct noted. No tumorvisualized in the pancreas.2. Several cystic lesions in the liver and in both kidneys.[facility] [id number] 17:41:52CT Abdomen and Pelvis with intravenous contrast. CLINICAL HISTORY: Epigastric pain and dilated bile duct. DOSE: Up-to-date CT equipment and radiation dose reduction techniques wereemployed. CTDIvol: 6.66 mGy. DLP: 339 mGy-cm. TECHNIQUE : Contiguous axial imaging from the level of the lung basesthrough the pubic symphysis were performed after the uncomplicatedadministration of Omnipaque contrast material. ?Coronal and sagittalreconstructions were obtained. Auto mA and/or iterative reconstruction wereused to reduce radiation dose. FINDINGS: ? Lower lungs: Small hiatal hernia noted. No pleural effusion or pericardialeffusion. Right coronary atherosclerosis is visualized. Liver, Gallbladder and Spleen: Liver is approximately 15 cm in length andshowed irregular shaped 23 mm, 15 mm, 16 mm and 9 mm located in the rightlobe of the liver, consistent with small hepatic cysts. Spleen isunremarkable. Hydropic gallbladder as well as dilated common bile duct, common hepaticduct and slightly dilated intrahepatic bile ducts again noted. Pancreaticduct is not dilated. An air-filled 1 cm diverticulum is seen adjacent tothe entrance site of common duct into the duodenum. Peritoneum: ?No free air or free fluid.No lymphadenopathy. Pancreas and Adrenals: ?Unremarkable pancreas and adrenal glands. Kidneys and Ureters: ?No visible calculi in the renal collecting systems. No hydroureter or hydronephrosis. Bilateral subcentimeter hypodense lesionsare detected in the kidneys and there is one 18 mm cyst in the rightkidney. Vessels: Mild atherosclerosis. Patent hepatic/portal venous systems as wellas renal veins. Retroperitoneum: No abnormal fluid or lymphadenopathy. Bowel: Constipation and diverticulosis of the sigmoid colon noted withoutany acute changes. Normal appendix is visualized. Bladder and Reproductive Organs: Unremarkable unopacified urinary bladder. Bones: Bilateral hip joint degenerative arthritis, more affecting left hipjoint. No acute findings. Soft tissues: Unremarkable. CONCLUSION:1. Dilated, and bile duct, hydropic gallbladder and minimally dilatedintrahepatic bile ducts without any apparent c ause in this study. Noabnormalities seen in the head of the pancreas and the pancreatic duct isof normal size.2. Normal size liver with several small cystic lesions discussed above.3. Low-density subcentimeter 2 lesions in the left kidney, 4 mm and 18 mmlow-density lesions in the right kidney noted, likely incidental renalcysts, although subcentimeter low-density lesions are too small toaccurately characterize. [facility], Radiant Results Inft User - 08/03/2020 12:43 PM CDTCT Abdomen and Pelvis with intravenous contrast.CLINICAL HISTORY: Epigastric pain and dilated bile duct.DOSE: Up-to-date CT equipment and radiation dose reduction techniques wereemployed. CTDIvol: 6.66 mGy. DLP: 339 mGy-cm.TECHNIQUE : Contiguous axial imaging from the level of the lung basesthrough the pubic symphysis were performed after the uncomplicatedadministration of Omnipaque contrast material. Coronal and sagittalreconstructions were obtained. Auto mA and/or iterative reconstruction wereused to reduce radiation dose.FINDINGS: Lower lungs: Small hiatal hernia noted. No pleural effusion or pericardialeffusion. Right coronary atherosclerosis is visualized.Liver, Gallbladder and Spleen: Liver is approximately 15 cm in length andshowed irregular shaped 23 mm, 15 mm, 16 mm and 9 mm located in the rightlobe of the liver,consistent with small hepatic cysts. Spleen isunremarkable.Hydropic gallbladder as well as dilated common bile duct, common hepaticduct and slightly dilated intrahepatic bile ducts again noted. Pancreaticduct is not dilated. An air-filled 1 cm diverticulum is seen adjacent tothe entrance site of common duct into the duodenum.Peritoneum: No free air or free fluid. No lymphadenopathy.Pancreas and Adrenals: Unremarkable pancreas and adrenal glands.Kidneys and Ureters: No visible calculi in the renalcollecting systems. No hydroureter or hydronephrosis. Bilateral subcentimeter hypodense lesionsare detected in the kidneys and there is one 18 mm cyst in the rightkidney. Vessels: Mild atherosclerosis.Patent hepatic/portal venous systems as wellas renal veins.Retroperitoneum: No abnormal fluid or lymp hadenopathy.Bowel: Constipation and diverticulosis of the sigmoid colon noted withoutany acute changes. Normal appendix is visualized.Bladder and Reproductive Organs: Unremarkable unopacified urinary bladder.Bones: Bilateral hip joint degenerative arthritis, more affecting left hipjoint. No acute findings.Soft tissues: Unremarkable.CONCLUSION:1. Dilated, and bile duct, hydropic gallbladder and minimally dilatedintrahepatic bile ducts without any apparent cause in this study. Noabnormalities seen in the head of the pancreas and the pancreatic duct isof normal size.2. Normal size liver with several small cystic lesions discussed above.3. Low-density subcentimeter 2 lesions in the left kidney, 4 mm and 18 mmlow-density lesions in the right kidney noted, likely incidental renalcysts, although subcentimeter low-density lesions are too small toaccurately characterize.[facility] W [id number] 17:41:52CT Abdomen and Pelvis with intravenous contrast. CLINICAL HISTORY: Epigastric pain and dilated bile duct. DOSE: Up-to-date CT equipment and radiation dose reduction techniques wereemployed. CTDIvol: 6.66 mGy. DLP: 339 mGy-cm. TECHNIQUE : Contiguous axial imaging from the level of the lung basesthrough the pubic symphysis were performed after the uncomplicatedadministration of Omnipaque contrast material. ?Coronal and sagittalreconstructions were obtained. Auto mA and/or iterative reconstruction wereused to reduce radiation dose. FINDINGS: ? Lower lungs: Small hiatal hernia noted. No pleural effusion or pericardialeffusion. Right coronary atherosclerosis is visualized. Liver, Gallbladder and Spleen: Liver is approximately 15 cm in length andshowed irregular shaped 23 mm, 15 mm, 16 mm and 9 mm located in the rightlobe of the liver, consistent with small hepatic cysts. Spleen isunremarkable. Hydropic gallbladder as well as dilated common bile duct, common hepaticduct and slightly dilated intrahepatic bile ducts again noted. Pancreaticduct is not dilated. An air-filled 1 cm diverticulum is seen adjacent tothe entrance site of common duct into the duodenum. Peritoneum: ?No free air or free fluid.No lymphadenopathy. Pancreas and Adrenals: ?Unremarkable pancreas and adrenal glands. Kidneys and Ureters: ?No visible calculi in the renal collecting systems. No hydroureter or hydronephrosis. Bilateral subcentimeter hypodense lesionsare detected in the kidneys and there is one 18 mm cyst in the rightkidney. Vessels: Mild atherosclerosis. Patent hepatic/portal venous systems as wellas renal veins. Retroperitoneum: No abnormal fluid or lymphadenopathy. Bowel: Constipation and diverticulosis of the sigmoid colon noted withoutany acute changes. Normal appendix is visualized. Bladder and Reproductive Organs: Unremarkable unopacified urinary bladder. Bones: Bilateral hip joint degenerative arthritis, more affecting left hipjoint. No acute findings. Soft tissues: Unremarkable. CONCLUSION:1. Dilated, and bile duct, hydropic gallbladder and minimally dilatedintrahepatic bile ducts without any apparent c ause in this study. Noabnormalities seen in the head of the pancreas and the pancreatic duct isof normal size.2. Normal size liver with several small cystic lesions discussed above.3. Low-density subcentimeter 2 lesions in the left kidney, 4 mm and 18 mmlow-density lesions in the right kidney noted, likely incidental renalcysts, although subcentimeter low-density lesions are too small toaccurately characterize. [facility], Radiant Results Inft User - 08/03/2020 12:43 PM CDTCT Abdomen and Pelvis with intravenous contrast.CLINICAL HISTORY: Epigastric pain and dilated bile duct.DOSE: Up-to-date CT equipment and radiation dose reduction techniques wereemployed. CTDIvol: 6.66 mGy. DLP: 339 mGy-cm.TECHNIQUE : Contiguous axial imaging from the level of the lung basesthrough the pubic symphysis were performed after the uncomplicatedadministration of Omnipaque contrast material. Coronal and sagittalreconstructions were obtained. Auto mA and/or iterative reconstruction wereused to reduce radiation dose.FINDINGS: Lower lungs: Small hiatal hernia noted. No pleural effusion or pericardialeffusion. Right coronary atherosclerosis is visualized.Liver, Gallbladder and Spleen: Liver is approximately 15 cm in length andshowed irregular shaped 23 mm, 15 mm, 16 mm and 9 mm located in the rightlobe of the liver,consistent with small hepatic cysts. Spleen isunremarkable.Hydropic gallbladder as well as dilated common bile duct, common hepaticduct and slightly dilated intrahepatic bile ducts again noted. Pancreaticduct is not dilated. An air-filled 1 cm diverticulum is seen adjacent tothe entrance site of common duct into the duodenum.Peritoneum: No free air or free fluid. No lymphadenopathy.Pancreas and Adrenals: Unremarkable pancreas and adrenal glands.Kidneys and Ureters: No visible calculi in the renalcollecting systems. No hydroureter or hydronephrosis. Bilateral subcentimeter hypodense lesionsare detected in the kidneys and there is one 18 mm cyst in the rightkidney. Vessels: Mild atherosclerosis.Patent hepatic/portal venous systems as wellas renal veins.Retroperitoneum: No abnormal fluid or lymp hadenopathy.Bowel: Constipation and diverticulosis of the sigmoid colon noted withoutany acute changes. Normal appendix is visualized.Bladder and Reproductive Organs: Unremarkable unopacified urinary bladder.Bones: Bilateral hip joint degenerative arthritis, more affecting left hipjoint. No acute findings.Soft tissues: Unremarkable.CONCLUSION:1. Dilated, and bile duct, hydropic gallbladder and minimally dilatedintrahepatic bile ducts without any apparent cause in this study. Noabnormalities seen in the head of the pancreas and the pancreatic duct isof normal size.2. Normal size liver with several small cystic lesions discussed above.3. Low-density subcentimeter 2 lesions in the left kidney, 4 mm and 18 mmlow-density lesions in the right kidney noted, likely incidental renalcysts, although subcentimeter low-density lesions are too small toaccurately characterize.[facility] CenterLEENA [id number] 16:37:54 Test Item Value Reference Range Interpretation Comments TROPONIN I (test 0.004 ng/mL See_Comment [Automated code = [id number]) message] The system which generated this result transmitted reference range : <=0.034. The reference range was not used to interpret this result as normal/abnormal . NARA (test code = Equal or Less than NARA) 0.034 ng/ml---Normal ?Note: Cardiac troponin begins to rise 3-4 hours after the onset of ischemia. Repeat in 4-6 hours if the sample was drawn within 3-4 hours of the onset of the symptom and found normal. Between 0.035 and 0.120 ng/mL--- Borderline. Questionable myocardial injury or necrosis ? ?Note: Serial measurement may be necessary to confirm or exclude the diagnosis of myocardial injury or necrosis; Clinical correlation (symptoms, EKGs, imaging studies, and others) required; Repeat in 4-6 hours if clinically indicated. ? Equal or Higher than 0.121 ng/mL---Abnormal. Myocardial Injury or Necrosis Likely ? Biotin has been reported to cause a negative bias, interpret results relative to patient's use of biotin. ? Lab Interpretation Normal (test code = 46534-8) [facility] CenterJARETTN [id number] 16:37:54 Test Item Value Reference Range Interpretation Comments TROPONIN I (test 0.004 ng/mL See_Comment [Automated code = [id number]) message] The system which generated this result transmitted reference range : <=0.034. The reference range was not used to interpret this result as normal/abnormal . NARA (test code = Equal or Less than NARA) 0.034 ng/ml---Normal ?Note: Cardiac troponin begins to rise 3-4 hours after the onset of ischemia. Repeat in 4-6 hours if the sample was drawn within 3-4 hours of the onset of the symptom and found normal. Between 0.035 and 0.120 ng/mL--- Borderline. Questionable myocardial injury or necrosis ? ?Note: Serial measurement may be necessary to confirm or exclude the diagnosis of myocardial injury or necrosis; Clinical correlation (symptoms, EKGs, imaging studies, and others) required; Repeat in 4-6 hours if clinically indicated. ? Equal or Higher than 0.121 ng/mL---Abnormal. Myocardial Injury or Necrosis Likely ? Biotin has been reported to cause a negative bias, interpret results relative to patient's use of biotin. ? Lab Interpretation Normal (test code = 34501-4) [facility] ABDOMEN [id number] 15:36:10HISTORY: Epigastric and right upper quadrant abdominal pain. COMPARISON: None TECHNIQUE: Liver as well as gallbladder were evaluated in multiple planeswithout and with color imaging. FINDINGS: Liver isapproximately 15.7 cm and showed normal homogeneousechotexture. Hepatic/portal venous systems appearpatent with hepatopedalportal venous flow confirmed. No fluid is seen in the right upper abdomen. Gallbladder is hydropic, measuring 10.5 x 4.5 cm in size with moderateechogenic debris in the dependentportion of the lumen noted. No gallstonesvisualized. Common hepatic duct is also dilated measuring 14 mm with milddilatation of the intrahepatic bile ducts. Pancreas is not adequatelyvisualized due to gas. CONCLUSIONS:1. Hydropic gallbladder with echogenic biliary sludge in its lumen. Nogallstones.2. Dilated common bile duct as well as slightly dilated intrahepatic bileducts. CT scan of abdomen without and with contrast suggested withattention to the pancreas.[facility], Radiant Results Inft User - 08/03/2020 10:37 AM CDTHISTORY: Epigastric and right upper quadrant abdominal pain.COMPARISON: NoneTECHNIQUE: Liver as well as gallbladder were evaluated in multiple planeswithout and with color imaging.FINDINGS: Liver is approximately 15.7 cm and showed normal homogeneousechotexture. Hepatic/portal venous systems appear patent with hepatopedalportal venous flow confirmed. No fluid is seen in the right upper abdomen.Gallbladder is hydropic, measuring 10.5 x 4.5 cm in size with moderateechogenic debris in the dependent portion of the lumen noted. No gallstonesvisualized. Common hepatic duct is also dilated measuring 14 mm with milddilatation of the intrahepatic bile ducts. Pancreas is not adequatelyvisualized due to gas.CONCLUSIONS:1. Hydropic gallbladder with echogenic biliary sludge in its lumen. Nogallstones.2. Dilated common bile duct as well as slightly dilated intrahepatic bileducts. CT scan of abdomen without and with contrast suggested withattention to the pancreas.[facility]US ABDOMEN [id number] 15:36:10HISTORY: Epigastric and right upper quadrant abdominal pain. COMPARISON: None TECHNIQUE: Liver as well as gallbladder were evaluated in multiple planeswithout and with color imaging. FINDINGS: Liver isapproximately 15.7 cm and showed normal homogeneousechotexture. Hepatic/portal venous systems appearpatent with hepatopedalportal venous flow confirmed. No fluid is seen in the right upper abdomen. Gallbladder is hydropic, measuring 10.5 x 4.5 cm in size with moderateechogenic debris in the dependentportion of the lumen noted. No gallstonesvisualized. Common hepatic duct is also dilated measuring 14 mm with milddilatation of the intrahepatic bile ducts. Pancreas is not adequatelyvisualized due to gas. CONCLUSIONS:1. Hydropic gallbladder with echogenic biliary sludge in its lumen. Nogallstones.2. Dilated common bile duct as well as slightly dilated intrahepatic bileducts. CT scan of abdomen without and with contrast suggested withattention to the pancreas.[facility], [place] Results Inft User - 08/03/2020 10:37 AM CDTHISTORY: Epigastric and right upper quadrant abdominal pain.COMPARISON: NoneTECHNIQUE: Liver as well as gallbladder were evaluated in multiple planeswithout and with color imaging.FINDINGS: Liver is approximately 15.7 cm and showed normal homogeneousechotexture. Hepatic/portal venous systems appear patent with hepatopedalportal venous flow confirmed. No fluid is seen in the right upper abdomen.Gallbladder is hydropic, measuring 10.5 x 4.5 cm in size with moderateechogenic debris in the dependent portion of the lumen noted. No gallstonesvisualized. Common hepatic duct is also dilated measuring 14 mm with milddilatation of the intrahepatic bile ducts. Pancreas is not adequatelyvisualized due to gas.CONCLUSIONS:1. Hydropic gallbladder with echogenic biliary sludge in its lumen. Nogallstones.2. Dilated common bile duct as well as slightly dilated intrahepatic bileducts. CT scan of abdomen without and with contrast suggested withattention to the pancreas.[facility] CenterHEPATIC FUNCTION PANEL (30657) (ALB,T.PRO,BILI T,BU/BC,ALT,AST,ALK PHOS)2020-08-03 14:34:51 Test Item Value Reference Range Interpretation Comments TOTAL BILI (test code = 1468876965) 0.9 mg/dL 0.1-1.1 BILI UNCON (test code = 2163748114) 0.7 mg/dL 0.1-1.1 BILI CONJ (test code = 7427744788) 0.0 mg/dL 0.0-0.3 T PROTEIN (test code = 8406997109) 6.4 g/dL 6.3-8.2 ALBUMIN (test code = 3727171782) 3.9 g/dL 3.5-5.0 ALK PHOS (test code = 1807186620) 74 U/L 34-122 ALTv (test code = 1742-6) 64 U/L 5-50 H AST(SGOT) (test code = 4199641679) 108 U/L 13-40 H Lab Interpretation (test code = Abnormal 99401-1) [facility] Test Item Value Reference Range Interpretation Comments LIPASE (test code = 5445632693) 104 U/L 0-220 Lab Interpretation (test code = Normal 22388-8) [facility][id number][facility] (ALB,T.PRO,BILI T,BU/BC,ALT,AST,ALK PHOS)2020-08-03 14:34:51 Test Item Value Reference Range Interpretation Comments TOTAL BILI (test code = 6988138130) 0.9 mg/dL 0.1-1.1 BILI UNCON (test code = 2939504717) 0.7 mg/dL 0.1-1.1 BILI CONJ (test code = 0513928692) 0.0 mg/dL 0.0-0.3 T PROTEIN (test code = 1208629115) 6.4 g/dL 6.3-8.2 ALBUMIN (test code = 8957737736) 3.9 g/dL 3.5-5.0 ALK PHOS (test code = 9388166289) 74 U/L 34-122 ALTv (test code = 1742-6) 64 U/L 5-50 H AST(SGOT) (test code = 7595351998) 108 U/L 13-40 H Lab Interpretation (test code = Abnormal 02280-7) [facility] 14[facility]34:51 Test Item Value Reference Range Interpretation Comments LIPASE (test code = 7198964146) 104 U/L 0-220 Lab Interpretation (test code = Normal 81372-3) [facility] [id number] 12:33:35 Test Item Value Reference Range Interpretation Comments TROPONIN I (test 0.004 ng/mL See_Comment [Automated code = 7832300498) message] The system which generated this result transmitted reference range : <=0.034. The reference range was not used to interpret this result as normal/abnormal . NARA (test code = Equal or Less than NARA) 0.034 ng/ml---Normal ?Note: Cardiac troponin begins to rise 3-4 hours after the onset of ischemia. Repeat in 4-6 hours if the sample was drawn within 3-4 hours of the onset of the symptom and found normal. Between 0.035 and 0.120 ng/mL--- Borderline. Questionable myocardial injury or necrosis ? ?Note: Serial measurement may be necessary to confirm or exclude the diagnosis of myocardial injury or necrosis; Clinical correlation (symptoms, EKGs, imaging studies, and others) required; Repeat in 4-6 hours if clinically indicated. ? Equal or Higher than 0.121 ng/mL---Abnormal. Myocardial Injury or Necrosis Likely ? Biotin has been reported to cause a negative bias, interpret results relative to patient's use of biotin. ? Lab Interpretation Normal (test code = 63654-6) [facility] [id number] 12:33:35 Test Item Value Reference Range Interpretation Comments TROPONIN I (test 0.004 ng/mL See_Comment [Automated code = 1299004501) message] The system which generated this result transmitted reference range : <=0.034. The reference range was not used to interpret this result as normal/abnormal . NARA (test code = Equal or Less than NARA) 0.034 ng/ml---Normal ?Note: Cardiac troponin begins to rise 3-4 hours after the onset of ischemia. Repeat in 4-6 hours if the sample was drawn within 3-4 hours of the onset of the symptom and found normal. Between 0.035 and 0.120 ng/mL--- Borderline. Questionable myocardial injury or necrosis ? ?Note: Serial measurement may be necessary to confirm or exclude the diagnosis of myocardial injury or necrosis; Clinical correlation (symptoms, EKGs, imaging studies, and others) required; Repeat in 4-6 hours if clinically indicated. ? Equal or Higher than 0.121 ng/mL---Abnormal. Myocardial Injury or Necrosis Likely ? Biotin has been reported to cause a negative bias, interpret results relative to patient's use of biotin. ? Lab Interpretation Normal (test code = 82262-5) [facility] 1 [id number] 12:00:28Normal chest. RL: 6507 STUDY: SINGLE FRONTAL VIEW OF THE CHEST ORDERING PHYSICIAN: MARIA LUISA SHI DATE: ?08/03/2020 6:45 AM REASON FOR EXAM: ?chest pain TECHNIQUE: ?Frontal view of the chest COMPARISON: None available FINDINGS: The cardiomediastinal silhouette is normal. The lungs are clear. ? The remaining osseous and soft tissue structures are unremarkable. [facility], Radiant Results Inft User - 08/03/2020 7:01 AM CDTSTUDY: SINGLE FRONTAL VIEW OF THE CHESTORDERING PHYSICIAN: MARIA LUISA SHIDATE: 08/03/2020 6:45 AMREASON FOR EXAM: chest pain TECHNIQUE: Frontal view of the chestCOMPARISON: None availableFINDINGS: The cardiomediastinal silhouette is normal. The lungs are clear. The remaining osseous and soft tissue structures are unremarkable.IMPRESSIONNormal chest.RL: 6507 [facility] VW 2020-08-03 12:00:28Normal chest. RL: 6507 STUDY: SINGLE FRONTAL VIEW OF THE CHEST ORDERING PHYSICIAN: MARIA LUISA SHI DATE: ?08/03/2020 6:45 AM REASON FOR EXAM: ?chest pain TECHNIQUE: ?Frontal view of the chest COMPARISON: None available FINDINGS: The cardiomediastinal silhouette is normal. The lungs are clear. ? The remaining osseous and soft tissue structures are unremarkable. [facility], Radiant Results Inft User - 08/03/2020 7:01 AM CDTSTUDY: SINGLE FRONTAL VIEW OF THE CHESTORDERING PHYSICIAN: MARIA LUISA SHIDATE: 08/03/2020 6:45 AMREASON FOR EXAM: chest pain TECH NIQUE: Frontal view of the chestCOMPARISON: None availableFINDINGS: The cardiomediastinal silhouette is normal. The lungs are clear. The remaining osseous and soft tissue structures are unremarkable.IMPRESSIONNormal chest.RL: 6507 [facility] GLUCOSE (AUTOMATED)2020-08-03 11:35:09 Test Item Value Reference Range Interpretation Comments POCT GLU (test code = 9440138185) 106 mg/dL 70-110 Lab Interpretation (test code = Normal 54630-6) [facility] GLUCOSE (AUTOMATED)2020-08-03 11:35:09 Test Item Value Reference Range Interpretation Comments POCT GLU (test code = 1742523018) 106 mg/dL 70-110 Lab Interpretation (test code = Normal 07717-1) [facility] CenterTR[facility] [id number] 09:50:56 Test Item Value Reference Range Interpretation Comments TROPONIN I (test 0.004 ng/mL See_Comment [Automated code = 1979323891) message] The system which generated this result transmitted reference range : <=0.034. The reference range was not used to interpret this result as normal/abnormal . NARA (test code = Equal or Less than NARA) 0.034 ng/ml---Normal ?Note: Cardiac troponin begins to rise 3-4 hours after the onset of ischemia. Repeat in 4-6 hours if the sample was drawn within 3-4 hours of the onset of the symptom and found normal. Between 0.035 and 0.120 ng/mL--- Borderline. Questionable myocardial injury or necrosis ? ?Note: Serial measurement may be necessary to confirm or exclude the diagnosis of myocardial injury or necrosis; Clinical correlation (symptoms, EKGs, imaging studies, and others) required; Repeat in 4-6 hours if clinically indicated. ? Equal or Higher than 0.121 ng/mL---Abnormal. Myocardial Injury or Necrosis Likely ? Biotin has been reported to cause a negative bias, interpret results relative to patient's use of biotin. ? Lab Interpretation Normal (test code = 33979-6) [facility] CenterLE[facility] [id number] 09:50:56 Test Item Value Reference Range Interpretation Comments TROPONIN I (test 0.004 ng/mL See_Comment [Automated code = 6404235882) message] The system which generated this result transmitted reference range : <=0.034. The reference range was not used to interpret this result as normal/abnormal . NARA (test code = Equal or Less than NARA) 0.034 ng/ml---Normal ?Note: Cardiac troponin begins to rise 3-4 hours after the onset of ischemia. Repeat in 4-6 hours if the sample was drawn within 3-4 hours of the onset of the symptom and found normal. Between 0.035 and 0.120 ng/mL--- Borderline. Questionable myocardial injury or necrosis ? ?Note: Serial measurement may be necessary to confirm or exclude the diagnosis of myocardial injury or necrosis; Clinical correlation (symptoms, EKGs, imaging studies, and others) required; Repeat in 4-6 hours if clinically indicated. ? Equal or Higher than 0.121 ng/mL---Abnormal. Myocardial Injury or Necrosis Likely ? Biotin has been reported to cause a negative bias, interpret results relative to patient's use of biotin. ? Lab Interpretation Normal (test code = 28387-6) [facility] METABOLIC PANEL (NA, K, CL, CO2, GLUCOSE, BUN, CREATININE, CA)2020-08-03 09:39:55 Test Item Value Reference Range Interpretation Comments NA (test code = 139 mmol/L 135-145 8789791221) K (test code = 4.2 mmol/L 3.5-5.0 3978191280) CL (test code = 110 mmol/L 98-108 H 5338712411) CO2 TOTAL (test code = 24 mmol/L 23-31 1843511507) AGAP (test code = 2-16 8032619365) BUN (test code = 16 mg/dL 7-23 1911332425) GLUCOSE (test code = 93 mg/dL 70-110 1910585406) CREATININE (test code = 0.85 mg/dL 0.60-1.25 0001980515) CALCIUM (test code = 8.7 mg/dL 8.6-10.6 4910722205) eGFR (test code = mL/min/1.73m2 5181184075) NARA (test code = NARA) Association of Glomerular Filtration Rate (GFR) and Staging of Kidney Disease* + --+ --+ ------+| GFR (mL/min/1.73 m2) ?| With Kidney Damage ?| ?Without Kidney Damage+ --------+ --------+ +| ?>90 ?| ?Stage one ?| ? Normal ?+ ---+ ---+ -------+| ?60-89 ?| ?Stage two ?| ? Decreased GFR ? + --+ --+ ------+| ?30-59 ?| ?Stage three ?| ? Stage three ? + --+ --+ ------+| ?15-29 ?| ?Stage four ? | ? Stage four ?+ ---+ ---+ -------+| ?<15 (or dialysis) ? ?| ?Stage five ? | ? Stage five ?+ ---+ ---+ -------+ *Each stage assumes the associated GFR level has been in effect for at least three months. ?Stages 1 to 5, with or without kidney disease, indicate chronic kidney disease. Notes: Determination of stages one and two (with eGFR >59mL/min/1.73 m2) requires estimation of kidney damage for at least three months as defined by structural or functional abnormalities of the kidney, manifested by either:Pathological abnormalities or Markers of kidney damage (including abnormalities in the composition of the blood or urine or abnormalities in imaging tests). Lab Interpretation Abnormal (test code = 23929-3) [facility] METABOLIC PANEL (NA, K, CL, CO2, GLUCOSE, BUN, CREATININE, CA)2020-08-03 09:39:55 Test Item Value Reference Range Interpretation Comments NA (test code = 139 mmol/L 135-145 8465254388) K (test code = 4.2 mmol/L 3.5-5.0 3377380511) CL (test code = 110 mmol/L 98-108 H 7383265514) CO2 TOTAL (test code = 24 mmol/L 23-31 1384605218) AGAP (test code = 2-16 7049004456) BUN (test code = 16 mg/dL 7-23 3070660379) GLUCOSE (test code = 93 mg/dL 70-110 4769319267) CREATININE (test code = 0.85 mg/dL 0.60-1.25 6077301399) CALCIUM (test code = 8.7 mg/dL 8.6-10.6 3891225223) eGFR (test code = mL/min/1.73m2 5759372841) NARA (test code = NARA) Association of Glomerular Filtration Rate (GFR) and Staging of Kidney Disease* + --+ --+ ------+| GFR (mL/min/1.73 m2) ?| With Kidney Damage ?| ?Without Kidney Damage+ --------+ --------+ +| ?>90 ?| ?Stage one ?| ? Normal ?+ ---+ ---+ -------+| ?60-89 ?| ?Stage two ?| ? Decreased GFR ? + --+ --+ ------+| ?30-59 ?| ?Stage three ?| ? Stage three ? + --+ --+ ------+| ?15-29 ?| ?Stage four ? | ? Stage four ?+ ---+ ---+ -------+| ?<15 (or dialysis) ? ?| ?Stage five ? | ? Stage five ?+ ---+ ---+ -------+ *Each stage assumes the associated GFR level has been in effect for at least three months. ?Stages 1 to 5, with or without kidney disease, indicate chronic kidney disease. Notes: Determination of stages one and two (with eGFR >59mL/min/1.73 m2) requires estimation of kidney damage for at least three months as defined by structural or functional abnormalities of the kidney, manifested by either:Pathological abnormalities or Markers of kidney damage (including abnormalities in the composition of the blood or urine or abnormalities in imaging tests). Lab Interpretation Abnormal (test code = 27381-2) [facility] [id number] 20:54:35 Test Item Value Reference Range Interpretation Comments TROPONIN I (test 0.003 ng/mL See_Comment [Automated code = 7971583224) message] The system which generated this result transmitted reference range : <=0.034. The reference range was not used to interpret this result as normal/abnormal . NARA (test code = Equal or Less than NARA) 0.034 ng/ml---Normal ?Note: Cardiac troponin begins to rise 3-4 hours after the onset of ischemia. Repeat in 4-6 hours if the sample was drawn within 3-4 hours of the onset of the symptom and found normal. Between 0.035 and 0.120 ng/mL--- Borderline. Questionable myocardial injury or necrosis ? ?Note: Serial measurement may be necessary to confirm or exclude the diagnosis of myocardial injury or necrosis; Clinical correlation (symptoms, EKGs, imaging studies, and others) required; Repeat in 4-6 hours if clinically indicated. ? Equal or Higher than 0.121 ng/mL---Abnormal. Myocardial Injury or Necrosis Likely ? Biotin has been reported to cause a negative bias, interpret results relative to patient's use of biotin. ? Lab Interpretation Normal (test code = 59400-6) [facility] [id number] 20:54:35 Test Item Value Reference Range Interpretation Comments TROPONIN I (test 0.003 ng/mL See_Comment [Automated code = 3315516324) message] The system which generated this result transmitted reference range : <=0.034. The reference range was not used to interpret this result as normal/abnormal . NARA (test code = Equal or Less than NARA) 0.034 ng/ml---Normal ?Note: Cardiac troponin begins to rise 3-4 hours after the onset of ischemia. Repeat in 4-6 hours if the sample was drawn within 3-4 hours of the onset of the symptom and found normal. Between 0.035 and 0.120 ng/mL--- Borderline. Questionable myocardial injury or necrosis ? ?Note: Serial measurement may be necessary to confirm or exclude the diagnosis of myocardial injury or necrosis; Clinical correlation (symptoms, EKGs, imaging studies, and others) required; Repeat in 4-6 hours if clinically indicated. ? Equal or Higher than 0.121 ng/mL---Abnormal. Myocardial Injury or Necrosis Likely ? Biotin has been reported to cause a negative bias, interpret results relative to patient's use of biotin. ? Lab Interpretation Normal (test code = 43484-9) [facility] [id number] 18:23:51 No acute fracture or subluxation of cervical spine. Multilevel degenerativechanges with right C3-K6aziflk foraminal narrowing. Preliminary Report Dictated by Resident: Rohit Barboza MD., have reviewed this study and agree with theabove report.EXAM: CT CERVICAL SPINE WO CONTRAST HISTORY: 74 years -old Male with Neck pain, > 4 wks or red flag, no priorimaging COMPARISON: None.TECHNIQUE: Axial tomographic imaging of the cervical spine. Sagittal andcoronal reformations were obtained and reviewed. FINDING: The cervical curvature is normal. The vertebral bodies are normal in heightand in normal alignment. No facet fracture or subluxation is present. Thebasion dens interval(BDI) is within normal limits. The craniocervicaljunction is intact without any signs of craniocervical dissociation.Degenerative changes of C2 dens. C3-C4 disc osteophyte complex asymmetric to the right along withuncovertebral arthropathy results in right neural foraminal narrowing. Degenerative changes:Multilevel degenerative including uncovertebralhypertrophy with vacuum phenomena at C4 vertebral body. A 0.5 cm calcific granuloma noted within the left lung apex. [facility], Radiant Results Inft User - 08/02/2020 1:24 PM CDTEXAM: CT CERVICAL SPINE WO CONTRASTHISTORY: 74 years -old Male with Neck pain, > 4 wks or red flag, no priorimagingCOMPARISON: None.TECHNIQUE: Axial tomographic imaging of the cervical spine. Sagittal andcoronal reformations were obtained and reviewed.FINDING: The cervical curvature is normal. The vertebral bodies are normal in heightand in normal alignment. No facet fracture or subluxation is present. Thebasion dens interval(BDI) is within normal limits. The craniocervicaljunction is intact without any signs of craniocervical dissociation.Degenerative changes of C2 dens.C3-C4 disc osteophyte complex asymmetric to the right along withuncovertebral arthropathy results in right neural foraminal narrowing.Degenerative changes: Multilevel degenerative including uncovertebralhypertrophy with vacuum phenomena at C4 vertebral body.A 0.5 cm calcific granuloma noted within the leftlung apex. IMPRESSIONNo acute fracture or subluxation of cervical spine. Multilevel degenerativechanges with right C3-C4 neural foraminal narrowing.Preliminary Report Dictated by Resident: Rohit Lozano MD., have reviewed this study and agree with theabove report.[facility] 2020-08-02 18:23:51 No acute fracture or subluxation of cervical spine. Multilevel degenerativechanges with right C3-T5zcohif foraminal narrowing. Preliminary Report Dictated by Resident: Rohit Barboza MD., have reviewed this study and agree with theabove report.EXAM: CT CERVICAL SPINE WO CONTRAST HISTORY: 74 years -old Male with Neck pain, > 4 wks or red flag, no priorimaging COMPARISON: None.TECHNIQUE: Axial tomographic imaging of the cervical spine. Sagittal andcoronal reformations were obtained and reviewed. FINDING: The cervical curvature is normal. The vertebral bodies are normal in heightand in normal alignment. No facet fracture or subluxation is present. Thebasion dens interval(BDI) is within normal limits. The craniocervicaljunction is intact without any signs of craniocervical dissociation.Degenerative changes of C2 dens. C3-C4 disc osteophyte complex asymmetric to the right along withuncovertebral arthropathy results in right neural foraminal narrowing. Degenerative changes:Multilevel degenerative including uncovertebralhypertrophy with vacuum phenomena at C4 vertebral body. A 0.5 cm calcific granuloma noted within the left lung apex. [facility], Radiant Results Inft User - 08/02/2020 1:24 PM CDTEXAM: CT CERVICAL SPINE WO CONTRASTHISTORY: 74 years -old Male with Neck pain, > 4 wks or red flag, no priorimagingCOMPARISON: None.TECHNIQUE: Axial tomographic imaging of the cervical spine. Sagittal andcoronal reformations were obtained and reviewed.FINDING: The cervical curvature is normal. The vertebral bodies are normal in heightand in normal alignment. No facet fracture or subluxation is present. Thebasion dens interval(BDI) is within normal limits. The craniocervicaljunction is intact without any signs of craniocervical dissociation.Degenerative changes of C2 dens.C3-C4 disc osteophyte complex asymmetric to the right along withuncovertebral arthropathy results in right neural foraminal narrowing.Degenerative changes: Multilevel degenerative including uncovertebralhypertrophy with vacuum phenomena at C4 vertebral body.A 0.5 cm calcific granuloma noted within the leftlung apex. IMPRESSIONNo acute fracture or subluxation of cervical spine. Multilevel degenerativechanges with right C3-C4 neural foraminal narrowing.Preliminary Report Dictated by Resident: Rohit Lozano MD., have reviewed this study and agree with theabove report.[facility] CenterC[facility] (ID NOW RAPID TESTING)2020-08-02 16:24:35 Test Item Value Reference Range Interpretation Comments SARS-CoV-2 Rapid ID NOW Not Detected Not Detected (test code = 34825-2) NARA (test code = NARA) ID NOW COVID-19 Assay is an isothermal nucleic acid amplification test intended for the qualitative detection of nucleic acid from SARS-CoV-2 viral RNA in nasopharyngeal ([employer]AGE PATHOLOGIST) specimens. It is used under Emergency Use Authorization (EUA) by FDA. The limit of detection (LOD) of the assay is 125 Genome Equivalents/mL. A positive result is indicative of the presence of SARS-CoV-2 RNA. ?Clinical correlation with patient history and other diagnostic information is necessary to determine patient infection status. A negative (Not Detected) result does not preclude SARS-CoV-2 infection. In patients with clinical symptoms and other tests that are consistent with SARS-CoV-2 infection, negative results should be treated as presumptive negative and a new specimen should be tested with alternative PCR molecular test. Invalid: Please collect a new specimen for repeat patient testing if clinically indicated. Lab Interpretation Normal (test code = 73301-5) [facility] NOW [facility]APID TESTING)2020-08-02 16:24:35 Test Item Value Reference Range Interpretation Comments SARS-CoV-2 Rapid ID NOW Not Detected Not Detected (test code = 49925-3) NARA (test code = NARA) ID NOW COVID-19 Assay is an isothermal nucleic acid amplification test intended for the qualitative detection of nucleic acid from SARS-CoV-2 viral RNA in nasopharyngeal ([employer] LANGUAGE PATHOLOGIST) specimens. It is used under Emergency Use Authorization (EUA) by FDA. The limit of detection (LOD) of the assay is 125 Genome Equivalents/mL. A positive result is indicative of the presence of SARS-CoV-2 RNA. ?Clinical correlation with patient history and other diagnostic information is necessary to determine patient infection status. A negative (Not Detected) result does not preclude SARS-CoV-2 infection. In patients with clinical symptoms and other tests that are consistent with SARS-CoV-2 infection, negative results should be treated as presumptive negative and a new specimen should be tested with alternative PCR molecular test. Invalid: Please collect a new specimen for repeat patient testing if clinically indicated. Lab Interpretation Normal (test code = 18538-9) [facility] 1 [id number] 16:22:19 No acute cardiopulmonary abnormality. Preliminary Report Dictated by Resident: Milan Sandoval ?MD. Quang, have reviewed this study and agree with the abovereport.EXAM: XR CHEST 1 08/02/2020 10:13 AM HISTORY: 74 years-old Male with cp . TECHNIQUE: Portable AP view of the chest. COMPARISON: None. FINDINGS: Cardiomediastinal: The cardiomediastinal silhouette is unremarkable. Lungs and pleura: The lungs are clear. No focal consolidation,pneumothorax, or pleural effusion is seen. Musculoskeletal: No acute skeletal abnormality. [facility], Radiant Results Inft User - 08/02/2020 11:23 AM CDTEXAM: XR CHEST 1 VW 08/02/2020 10:13 AMHISTORY: 74 years-old Male with cp .TECHNIQUE: Portable AP view of the chest. COMPARISON: None.FINDINGS: Cardiomediastinal: The cardiomediastinal silhouette is unremarkable.Lungs and pleura: The lungs are clear. No focal consolidation,pneumothorax, or pleural effusion is seen.Musculoskeletal: No acute skeletal abnormality.IMPRESSIONNo acute cardiopulmonary abnormality.P reliminary Report Dictated by Resident: Milan Abdalla MD., have reviewed this study and agree with the abovereport.[facility] 1 [id number] 16:22:19 No acute cardiopulmonary abnormality. Preliminary Report Dictated by Resident: Milan Sandoval MD., have reviewed this study and agree with the abovereport.EXAM: XR CHEST 1 VW 08/02/2020 10:13 AM HISTORY: 74 years-old Male with cp . TECHNIQUE: Portable AP view of the chest. COMPARISON: None. FINDINGS: Cardiomediastinal: The cardiomediastinal silhouette is unremarkable. Lungs and pleura: The lungs are clear. No focal consolidation,pneumothorax, or pleural effusion is seen. Musculoskeletal: No acute skeletal abnormality. [facility], Radiant Results Inft User - 08/02/2020 11:23 AM CDTEXAM: XR CHEST 1 VW 08/02/2020 10:13 AMHISTORY: 74 years- old Male with cp .TECHNIQUE: Portable AP view of the chest. COMPARISON: None.FINDINGS: Cardiomediastinal: The cardiomediastinal silhouette is unremarkab le.Lungs and pleura: The lungs are clear. No focal consolidation,pneumothorax, or pleural effusion is seen.Musculoskeletal: No acute skeletal abnormality.IMPRESSIONNo acute cardiopulmonary abnormality.Preliminary Report Dictated by Resident: Milan Abdalla MD., have reviewed this study and agree with the abovereport.[facility] CenteraPTT 2020-08-02 15:45:47 Test Item Value Reference Range Interpretation Comments APTT Patient (test See_Comment [Automat ed code = 3173-2) message] The system which generated this result transmitted reference range : 23 - 38 Seconds . The reference range was not used to interpr et this result as normal/abnormal . NARA (test code = NARA) The [facility] patient population mean normal value for aPTT is 30 seconds. Lab Interpretation Normal (test code = 34641-4) [facility] 15:45:47 Test Item Value Reference Range Interpretation Comments APTT Patient (test See_Comment [Automat ed code = 3173-2) message] The system which generated this result transmitted reference range : 23 - 38 Seconds . The reference range was not used to interpr et this result as normal/abnormal . NARA (test code = NARA) The [facility] patient population mean normal value for aPTT is 30 seconds. Lab Interpretation Normal (test code = 95315-3) [facility] [id number] 15:43:45 Test Item Value Reference Range Interpretation Comments PROTIME PATIENT (test See_Comment [Auto mated message] code = 5964-2) The system [employer] Get [employer] For generated this result transmitted ref erence range: 12.0 - 1 4.7 Seconds. The re ference range was not u sed to interpret this result as normal/abnor mal. INR (test code = 6301-6) Nor mal INR <1.1; Warfarin Therap eutic range 2.0 to 3. 0 or 2.5 to 3.5, dep ending upon the indica tions. Lab Interpretation (test Normal code = 55977-1) [facility] / [id number] 15:43:45 Test Item Value Reference Range Interpretation Comments PROTIME PATIENT (test See_Comment [Auto mated message] code = 5964-2) The system [employer] Get [employer] For generated this result transmitted ref erence range: 12.0 - 1 4.7 Seconds. The re ference range was not u sed to interpret this result as normal/abnor mal. INR (test code = 6301-6) Nor mal INR <1.1; Warfarin Therap eutic range 2.0 to 3. 0 or 2.5 to 3.5, dep ending upon the indica tions. Lab Interpretation (test Normal code = 25530-2) [facility] [id number] 15:30:22 Test Item Value Reference Range Interpretation Comments TROPONIN I (test 0.004 ng/mL See_Comment [Automated code = 3678812469) message] The system which generated this result transmitted reference range : <=0.034. The reference range was not used to interpret this result as normal/abnormal . NARA (test code = Equal or Less than NARA) 0.034 ng/ml---Normal ?Note: Cardiac troponin begins to rise 3-4 hours after the onset of ischemia. Repeat in 4-6 hours if the sample was drawn within 3-4 hours of the onset of the symptom and found normal. Between 0.035 and 0.120 ng/mL--- Borderline. Questionable myocardial injury or necrosis ? ?Note: Serial measurement may be necessary to confirm or exclude the diagnosis of myocardial injury or necrosis; Clinical correlation (symptoms, EKGs, imaging studies, and others) required; Repeat in 4-6 hours if clinically indicated. ? Equal or Higher than 0.121 ng/mL---Abnormal. Myocardial Injury or Necrosis Likely ? Biotin has been reported to cause a negative bias, interpret results relative to patient's use of biotin. ? Lab Interpretation Normal (test code = 30556-3) [facility] [id number] 15:30:22 Test Item Value Reference Range Interpretation Comments TROPONIN I (test 0.004 ng/mL See_Comment [Automated code = 4718174856) message] The system which generated this result transmitted reference range : <=0.034. The reference range was not used to interpret this result as normal/abnormal . NARA (test code = Equal or Less than NARA) 0.034 ng/ml---Normal ?Note: Cardiac troponin begins to rise 3-4 hours after the onset of ischemia. Repeat in 4-6 hours if the sample was drawn within 3-4 hours of the onset of the symptom and found normal. Between 0.035 and 0.120 ng/mL--- Borderline. Questionable myocardial injury or necrosis ? ?Note: Serial measurement may be necessary to confirm or exclude the diagnosis of myocardial injury or necrosis; Clinical correlation (symptoms, EKGs, imaging studies, and others) required; Repeat in 4-6 hours if clinically indicated. ? Equal or Higher than 0.121 ng/mL---Abnormal. Myocardial Injury or Necrosis Likely ? Biotin has been reported to cause a negative bias, interpret results relative to patient's use of biotin. ? Lab Interpretation Normal (test code = 45951-1) [facility] 15:19:44 Test Item Value Reference Range Interpretation Comments MAGNESIUM (test code = 1439114765) 1.7 mg/dL 1.7-2.4 Lab Interpretation (test code = Normal 05499-1) [facility] 15:19:44 Test Item Value Reference Range Interpretation Comments MAGNESIUM (test code = 1991143701) 1.7 mg/dL 1.7-2.4 Lab Interpretation (test code = Normal 26395-3) [facility] CenterCOMP. METABOLIC PANEL ([id number])2020-08-02 15:19:24 Test Item Value Reference Range Interpretation Comments NA (test code = 138 mmol/L 135-145 0843070717) K (test code = 4.1 mmol/L 3.5-5.0 7487690308) CL (test code = 104 mmol/L 98-108 6190953037) CO2 TOTAL (test code 28 mmol/L 23-31 = 5833486490) AGAP (test code = 2-16 8359481730) BUN (test code = 13 mg/dL 7-23 0455920191) GLUCOSE (test code = 93 mg/dL 70-110 5107843717) CREATININE (test code 1.04 mg/dL 0.60-1.25 = 1696843476) TOTAL BILI (test code 0.5 mg/dL 0.1-1.1 = 5450914377) CALCIUM (test code = 9.6 mg/dL 8.6-10.6 0686934251) T PROTEIN (test code 7.0 g/dL 6.3-8.2 = 2699785204) ALBUMIN (test code = 4.3 g/dL 3.5-5.0 1892670165) ALK PHOS (test code = 72 U/L 34-122 0796508885) ALTv (test code = 31 U/L 5-50 1742-6) AST(SGOT) (test code 40 U/L 13-40 = 7761179594) eGFR (test code = mL/min/1.73m2 5610980357) NARA (test code = NARA) Association of Glomerular Filtration Rate (GFR) and Staging of Kidney Disease* + + +- +| GFR (mL/min/1.73 m2) ?| With Kidney Damage ?| ?Without Kidney Damage+ ------+ ----+ ------+| ?>90 ?| ?Stage one ?| ? Normal ?+ -+ + -+| ?60-89 ?| ?Stage two ?| ? Decreased GFR ? + + +- +| ?30-59 ?| ?Stage three ?| ? Stage three ? + + +- +| ?15-29 ?| ?Stage four ? | ? Stage four ?+ -+ + -+| ?<15 (or dialysis) ? ?| ?Stage five ? | ? Stage five ?+ -+ + -+ *Each stage assumes the associated GFR level has been in effect for at least three months. ?Stages 1 to 5, with or without kidney disease, indicate chronic kidney disease. Notes: Determination of stages one and two (with eGFR >59mL/min/1.73 m2) requires estimation of kidney damage for at least three months as defined by structural or functional abnormalities of the kidney, manifested by either:Pathological abnormalities or Markers of kidney damage (including abnormalities in the composition of the blood or urine or abnormalities in imaging tests). [facility]. METABOLIC PANEL ([id number])2020-08-02 15:19:24 Test Item Value Reference Range Interpretation Comments NA (test code = 138 mmol/L 135-145 8087189411) K (test code = 4.1 mmol/L 3.5-5.0 8013564330) CL (test code = 104 mmol/L 98-108 4473296416) CO2 TOTAL (test code 28 mmol/L 23-31 = 1217287823) AGAP (test code = 2-16 7520736221) BUN (test code = 13 mg/dL 7-23 2120928658) GLUCOSE (test code = 93 mg/dL 70-110 7599189885) CREATININE (test code 1.04 mg/dL 0.60-1.25 = 4139860078) TOTAL BILI (test code 0.5 mg/dL 0.1-1.1 = 2141057875) CALCIUM (test code = 9.6 mg/dL 8.6-10.6 7214048765) T PROTEIN (test code 7.0 g/dL 6.3-8.2 = 8361099509) ALBUMIN (test code = 4.3 g/dL 3.5-5.0 5795251956) ALK PHOS (test code = 72 U/L 34-122 1475060235) ALTv (test code = 31 U/L 5-50 1742-6) AST(SGOT) (test code 40 U/L 13-40 = 7678614081) eGFR (test code = mL/min/1.73m2 7672955571) NARA (test code = NARA) Association of Glomerular Filtration Rate (GFR) and Staging of Kidney Disease* + + +- +| GFR (mL/min/1.73 m2) ?| With Kidney Damage ?| ?Without Kidney Damage+ ------+ ----+ ------+| ?>90 ?| ?Stage one ?| ? Normal ?+ -+ + -+| ?60-89 ?| ?Stage two ?| ? Decreased GFR ? + + +- +| ?30-59 ?| ?Stage three ?| ? Stage three ? + + +- +| ?15-29 ?| ?Stage four ? | ? Stage four ?+ -+ + -+| ?<15 (or dialysis) ? ?| ?Stage five ? | ? Stage five ?+ -+ + -+ *Each stage assumes the associated GFR level has been in effect for at least three months. ?Stages 1 to 5, with or without kidney disease, indicate chronic kidney disease. Notes: Determination of stages one and two (with eGFR >59mL/min/1.73 m2) requires estimation of kidney damage for at least three months as defined by structural or functional abnormalities of the kidney, manifested by either:Pathological abnormalities or Markers of kidney damage (including abnormalities in the composition of the blood or urine or abnormalities in imaging tests). [facility] CenterLIPASE, [id number] 15:19:03 Test Item Value Reference Range Interpretation Comments LIPASE (test code = 6034688202) 104 U/L 0-220 Lab Interpretation (test code = Normal 79302-0) [facility] CenterLIPASE, [id number] 15:19:03 Test Item Value Reference Range Interpretation Comments LIPASE (test code = 9525644338) 104 U/L 0-220 Lab Interpretation (test code = Normal 14204-4) [facility] WITH [id number] 15:09:23 Test Item Value Reference Range Interpretation Comments WBC (test code = See_Comment [Automated 2790-2) message] The sy stem which generated this result transmitted reference range : 4.20 - 10.70 10*3/?L. The reference range was not used to interpret this result as normal/abnormal . RBC (test code = See_Comment [Automated 389-8) message] The sy stem which generated this result transmitted reference range : 4.26 - 5.52 10*6/?L. The reference range was not used to interpret this result as normal/abnormal . HGB (test code = 14.9 g/dL 12.2-16.4 718-7) HCT (test code = 44.2 % 38.4-49.3 4544-3) MCV (test code = 91.3 fL 81.7-95.6 787-2) MCH (test code = 30.8 pg 26.1-32.7 785-6) MCHC (test code = 33.7 g/dL 31.2-35.0 786-4) RDW-SD (test code = 45.1 fL 38.5-51.6 03777-7) RDW-CV (test code = 13.4 % 12.1-15.4 788-0) PLT (test code = See_Comment L [Automated 777-3) message] The sy stem which generated this result transmitted reference range : 150 - 328 10*3/ ?L. The reference r nelson was not used to interpret this result as normal/abnormal . MPV (test code = 10.6 fL 9.8-13.0 82885-6) NRBC/100 WBC (test See_Comment [Automat ed code = 1994080140) message] The system which generated this result transmitted reference range : 0.0 - 10.0 /100 WBCs. The refer ence range was not u sed to interpret th is result as normal/abnormal . NRBC x10^3 (test code <0.01 See_Comment [Auto mated = 7133297773) message] The s ystem which generated this result transmitted reference range : 10*3/?L. The reference range was not used to interpret this result as normal/abnormal . GRAN MAT (NEUT) % 66.6 % (test code = 770-8) IMM GRAN % (test code 0.30 % = 7933241976) LYMPH % (test code = 20.5 % 736-9) MONO % (test code = 10.3 % 5905-5) EOS % (test code = 1.5 % 713-8) BASO % (test code = 0.8 % 706-2) GRAN MAT x10^3(ANC) 4.91 10*3/uL 1.99-6.95 (test code = 6636985611) IMM GRAN x10^3 (test <0.03 0.00-0.06 code = 2921272217) LYMPH x10^3 (test code 1.51 10*3/uL 1.09-3.23 = 731-0) MONO x10^3 (test code 0.76 10*3/uL 0.36-1.02 = 742-7) EOS x10^3 (test code = 0.11 10*3/uL 0.06-0.53 711-2) BASO x10^3 (test code 0.06 10*3/uL 0.01-0.09 = 704-7) Lab Interpretation Abnormal (test code = 08125-4) [facility] WITH [id number] 15:09:23 Test Item Value Reference Range Interpretation Comments WBC (test code = See_Comment [Automated 6690-2) message] The sy stem which generated this result transmitted reference range : 4.20 - 10.70 10*3/?L. The reference range was not used to interpret this result as normal/abnormal . RBC (test code = See_Comment [Automated 789-8) message] The sy stem which generated this result transmitted reference range : 4.26 - 5.52 10*6/?L. The reference range was not used to interpret this result as normal/abnormal . HGB (test code = 14.9 g/dL 12.2-16.4 718-7) HCT (test code = 44.2 % 38.4-49.3 4544-3) MCV (test code = 91.3 fL 81.7-95.6 787-2) MCH (test code = 30.8 pg 26.1-32.7 785-6) MCHC (test code = 33.7 g/dL 31.2-35.0 786-4) RDW-SD (test code = 45.1 fL 38.5-51.6 50336-6) RDW-CV (test code = 13.4 % 12.1-15.4 788-0) PLT (test code = See_Comment L [Automated 777-3) message] The sy stem which generated this result transmitted reference range : 150 - 328 10*3/ ?L. The reference r nelson was not used to interpret this result as normal/abnormal . MPV (test code = 10.6 fL 9.8-13.0 61535-1) NRBC/100 WBC (test See_Comment [Automat ed code = 8357280415) message] The system which generated this result transmitted reference range : 0.0 - 10.0 /100 WBCs. The refer ence range was not u sed to interpret th is result as normal/abnormal . NRBC x10^3 (test code <0.01 See_Comment [Auto mated = 9175958708) message] The s ystem which generated this result transmitted reference range : 10*3/?L. The reference range was not used to interpret this result as normal/abnormal . GRAN MAT (NEUT) % 66.6 % (test code = 770-8) IMM GRAN % (test code 0.30 % = 2770071558) LYMPH % (test code = 20.5 % 736-9) MONO % (test code = 10.3 % 5905-5) EOS % (test code = 1.5 % 713-8) BASO % (test code = 0.8 % 706-2) GRAN MAT x10^3(ANC) 4.91 10*3/uL 1.99-6.95 (test code = 8229255126) IMM GRAN x10^3 (test <0.03 0.00-0.06 code = 0539445609) LYMPH x10^3 (test code 1.51 10*3/uL 1.09-3.23 = 731-0) MONO x10^3 (test code 0.76 10*3/uL 0.36-1.02 = 742-7) EOS x10^3 (test code = 0.11 10*3/uL 0.06-0.53 711-2) BASO x10^3 (test code 0.06 10*3/uL 0.01-0.09 = 704-7) Lab Interpretation Abnormal (test code = 39377-2) [facility], SACROILIAC JOINTS, LESS THAN 3 VIEWS 2019-10-03 09:27:00Reason for Exam:->inflammatory back painAddendum BeginsREPORT STATUS:A The sacroiliac joints are unremarkable in appearance when allowing for the patient's age. Mild bilateral sacroiliac sclerosis likely reflects age-related degenerative change. No joint effusion or discrete erosion. A more sensitive imaging evaluation may be obtained with dedicated sacroiliac MRI. Signed: Neto Daly MDReport Verified Date/Time: 10/03/2019 09:27:17 Reading Location: [facility] Reading Room [address] [place] [address].627Addendum EndsFINAL REPORT Exam: Bilateral hips three views History: Pain Comparison: None. Findings: There is normal bone mineralization. No fracture or dislocation. Bilateral hip arthrosis, mild right and moderate left. No abnormal soft tissue calcification or soft tissue defect. No soft tissue swelling. Impression: Bilateral hip arthrosis, mild right and moderate left. Signed: Neto Daly MDReportVerified Date/Time: 2019 15:15:35 Reading Location: [facility] Reading Room [address] [place] [address] TISSUE [id number] 15:25:00Surgical Pathology Report Case: [id number] Authorizing Provider: Heide Smith MD Collected: 09/11/2017 1223 Ordering Location: [facility] Received: 09/11/[address]: Too Velazquez MD Specimens: A) - Biopsy, Gastric, R/O ERYTHEMA B) - Biopsy, Esophagus, AT 20CM C) -Cecum, RECENT CT SCAN SHOWING COLITIS D) - Phu yp, Colon - Sigmoid E) - LargeIntestine, Colon - Sigmoid, RANDOM SIGMOID FOR RECENT CT SCAN WITH COLITIS F) - Rectum A. GASTRIC BIOPSY- CHRONIC INACTIVE GASTRITIS- NO INTESTINAL METAPLASIA, NO DYSPLASIA AND NO MALIGNANCY IDENTIFIED- NO HELICOBACTER PYLORI ORGANISMS IDENTIFIED ON WARTHIN-STARRY STAINB. ESOPHAGUS BIOPSY AT 20 CM, BIOPSY- GASTRIC MUCOSA, MILD CHRONIC INFLAMMATION (ECTOPIC GASTRIC MUCOSA)- NO INTESTINAL METAPLASIA, NO DYSPLASIA AND NO MALIGNANCY IDENTIFIED- NO HELICOBACTER PYLORI ORGANISMS IDENTIFIEDC. CECUM BIOPSY- COLONIC MUCOSA, WITHIN NORMAL LIMITSD. SIGMOID COLON POLYP, BIOPSY- TUBULAR ADENOMA- NO HIGH-GRADE DYSPLASIA AND NO MALIGNANCY IDENTIFIEDE. SIGMOID COLON BIOPSY- COLONIC MUCOSA, FOCAL VASCULAR CONGESTION F. RECTUM BIOPSY- COLONIC MUCOSA, BENIGN LYMPHOID AGGREGATES Signing Pathologist Direct Phone Line: [phone] signed by Too Velazquez MD on 09/12/2017 at 3:25 [id number] x 6, [id number] colitis, GERD, right lower quadrant abdominal pain, rule out erythemaA. Gastric biopsy; B. Esophagus biopsyat 20 cm; C. Cecum biopsy; D. Sigmoid colon polyp; E. Sigmoid colon biopsy; F. Rectum biopsySpecimenA: Received in formalin labeled "biopsy, gastric" are three fragments measuring 0.6 x 0.6 x 0.1 cm in aggregate. Entirely submitted A1. Specimen B:Received in formalin labeled "biopsy, esophagus", description "at 20 cm" is a single fragment measuring 0.3 cm in greatest dimension. Entirely submitted B1. Speicmen C: Received in formalin labeled "cecum", is a single fragment measuring 0.3 cm in greatestdimension. Entirely submitted C1.Specimen D: Received in formalin labeled "polyp, colon sigmoid" is a single fragment measuring 0.3 cm in greatest dimension. Entirely submitted D1. Specimen E: Receivedin formalin labeled "large intestine, colon sigmoid" is a single fragment measuring 0.3 cm in greatest dimension. Entirely submitted E1. Specimen F: Received in formalin labeled "rectum" are two fragments each measuring 0.2 cm in greatest dimension. Entirely submitted F1. DB/Mikael. Sections reveal fragments of benign antral and corpus mucosa with chronic inflammation. No active gastritis is seen. No Helicobacter pylori organisms are identified on Warthin - Starry stain. Intestinal metaplasia, dysplasia and malignancy are not seen.B. Sections reveal a piece of benign gastric mucosa, cardiafundic type, with mild chronic inflammation. No squamous epithelium is seen within the biopsy. Intestinal metaplasia, dysplasia, and malignancy are not identified.C. Sections reveal pieces of benign colonic mucosa with mild chronic inflammation. Normal crypt architecture is seen with no evidence of granulomatous inflammation or acute colitis. Features of collagenous colitis, inflammatory bowel disease and lymphocytic colitis are not seen. Adenomatous change, dysplasia and malignancy are not seen.D. Sections reveal a tubular adenoma with glands showing proliferation of adenomatous epithelium with nuclear stratification. The lamina propria has mildly increased acute and chronic inflammation. High-grade d ysplasia and malignancy are not seen. E. Sections reveal pieces of benign colonic mucosa with no significant histopathologic abnormality. The lamina propria has minimal chronic inflammation and focalvascular congestion. Normal crypt architecture is seen with no evidence of granulomatous inflammation or acute colitis. Features of collagenous colitis, inflammatory bowel disease and lymphocytic colitis are not seen. Adenomatous change, dysplasia and malignancy are not seen.F. Sections reveal pieces of benign colonic mucosa with no significant histopathologic abnormality. The lamina propria has minimal chronic inflammation along with two benign lymphoid aggregates. Normal crypt architecture isseen with no evidence of granulomatous inflammation or acute colitis. Features of collagenous colitis, inflammatory bowel disease and lymphocytic colitis are not seen. Adenomatous change, dysplasia and malignancy are not seen.The following special studies were performed on this case and the interpretation is incorporated in the diagnostic report above:IMMUNOHISTOCHEMISTRY/SPECIAL STAIN SUMMARY:The results of immunohistochemical studies and/or special stains are as follows:A. Warthin- Starry stain -No Helicobacter pylori organisms identifiedTISSUE [id number] 18:11:00 Test Item Value Reference Range Interpretation Comments LAB AP CPT CODE (BEAKER) (test code = 56894 2749) [id number] 11:20:00 Test Item Value Reference Range Interpretation Comments HEMOGLOBIN (BEAKER) (test code = 15.2 GM/DL 13.0-16.8 410) [id number] 11:16:00 Test Item Value Reference Range Interpretation Comments SODIUM (BEAKER) (test code = 381) 139 meq/L 136-145 POTASSIUM (BEAKER) (test code = 4.3 meq/L 3.5-5.1 379) CHLORIDE (BEAKER) (test code = 382) 108 meq/L 98-107 H CO2 (BEAKER) (test code = 355) 23 meq/L 22-29 [id number] 11:16:00 Test Item Value Reference Range Interpretation Comments GLUCOSE RANDOM (BEAKER) (test code = 89 mg/dL 70-105 652) Effective 03/17/2014: Reference Range Change-Adult onlyNew: 70-105 Previous: 70-110BUN AND [id number] 11:16:00 Test Item Value Reference Range Interpretation Comments BLOOD UREA NITROGEN 16 mg/dL 7-21 (BEAKER) (test code = 354) CREATININE (BEAKER) 1.20 mg/dL 0.57-1.25 (test code = 358) EGFR (BEAKER) (test 60 mL/min/1.73 ESTIMA DIETER GFR IS code = 1092) sq m NOT ACCURATE CREATININE CLEARANCE IN PREDICTING GLOMERULAR FILTRATION RATE . ESTIMATED GFR I S NOT APPLICABLE FOR DIALYSIS PATIEN TS.
[2021-07-10] MEDS ORDERED: FAMOTIDINE 20 MG/2 ML VIAL IV ONE (12:17)
[2021-07-10] MEDS ORDERED: NA CHLORIDE 0.9% 1,000 ML ONE (12:17)
[2021-07-10] MEDS ORDERED: ASPIRIN 81 MG CHEWABLE TABLET ONE (12:47)
[2021-07-10 12:49] LABS: Absolute Lymphocytes (CBC) 1.2 K/uL (0.7-4.9); Lymphocytes % 27.2 % (15.3-44.8); MPV 8.5 fL (7.6-11.3); RBC Red Blood Cell Count 4.82 M/uL (4.33-5.43)
[2021-07-10 12:50] LABS: Protime INR 0.96
[2021-07-10 13:02] LABS: Albumin 3.3 g/dL (3.4-5.0); Bilirubin Direct 0.2 mg/dL (0-0.2); Bilirubin Total 0.5 mg/dL (0.2-1.0); Potassium 4.4 mmol/L (3.5-5.1); Protein, Total 6.9 g/dL (6.4-8.2); Troponin High Sensitivity 5.8 pg/mL (<58.9)
--- NOTE | 2021-07-10 13:22 | RAD REPORT ---
EXAM DESCRIPTION: RAD - Chest Single View - 07/10/2021 1:04 pm CLINICAL HISTORY: CHEST PAIN COMPARISON: Chest Pa And Lat (2 Views) dated 08/23/2015; CHEST PA AND LAT 2 VIEW dated 08/16/2010 FINDINGS: Lines: None. Lungs: No evidence of edema or pneumonia. Pleural: No significant pleural effusions or pneumothorax. Cardiac: The heart size is within normal limits. Bones: No acute fractures. Other: IMPRESSION: No acute cardiopulmonary disease.
--- NOTE | 2021-07-10 13:42 | RAD REPORT ---
EXAM DESCRIPTION: CTAngio Aorta For Dissection - 07/10/2021 1:30 pm CLINICAL HISTORY: CHEST PAIN COMPARISON: Abdomen Pelvis W Contrast dated 08/30/2017 TECHNIQUE: CTA of the chest, abdomen, and pelvis was performed. Reconstructions were performed. All CT scans are performed using dose optimization technique as appropriate and may include automated exposure control or mA/KV adjustment according to patient size. FINDINGS: Thorax: Chest Wall: No abnormal mass Lungs: No acute abnormality. Pleura: No effusions or pneumothorax. Jo/Mediastinum: No lymphadenopathy. Tiny hiatal hernia. Aorta/Pulmonary Arteries: Unremarkable Heart: Normal size. Multi-vessel coronary artery disease. Abdomen/Pelvis: Liver: Too small to characterize liver lesions which are likely benign. Biliary: Extrahepatic biliary ductal dilatation. The common bile duct measures 12 millimeters. Interv al cholecystectomy. Stomach: No significant focal abnormality. Duodenum: No significant focal abnormality. Pancreas: No significant abnormality. Spleen: No significant abnormality. Adrenal: No suspicious lesions. Kidney/ureter: No hydronephrosis. No renal calculi. Retroperitoneum: No retroperitoneal adenopathy. Vascular: No aneurysm. Bowel: Diverticulosis without diverticulitis.. Peritoneum: No ascites or free air. Bladder: Nonspecific circumferential bladder wall thickening. Reproductive: Prostatectomy. Bones: No acute fracture. Left hip arthroplasty. Other: n/a IMPRESSION: No evidence of aortic aneurysm or dissection. No definite acute findings within the ches t, abdomen, or pelvis. Extrahepatic biliary ductal dilatation, more than typical following cholecystectomy. Correlate with L FTs. MRCP could better evaluate if clinically indicated.
--- NOTE | 2021-07-10 15:09 | ER ---
Nurse's Notes [facility] Name: Myron Napoles Age: 75 yrs Sex: Male : 1945 Arrival Date: 07/10/2021 Time: 12:00 Bed 15 Private MD: Diagnosis: Abdominal pain, unspecified;Chest pain, unspecified Presentation: 07/10 12:00 Chief complaint: Patient states: chest pain/upper gastric pain. Coronavirus screen: cb5 Client denies travel out of the [place] in the last 14 days. At this time, the client does not indicate any symptoms associated with coronavirus-19. Ebola Screen: Patient negative for fever greater than or equal to 101.5 degrees Fahrenheit, and additional compatible Ebola Virus Disease symptoms Patient denies exposure to infectious person. Patient denies travel to an Ebola-affected area in the 21 days before illness onset. Initial Sepsis Screen: Does the patient meet any 2 criteria? No. Patient's initial sepsis screen is negative. Does the patient have a suspected source of infection? No. Patient's initial sepsis screen is negative. Risk Assessment: Do you want to hurt yourself or someone else? Patient reports no desire to harm self or others. 12:00 Method Of Arrival: EMS: [facility] cb5 12:00 Acuity: DELL 3 cb5 Triage Assessment: 12:00 General: Appears comfortable, well groomed, Behavior is calm, cooperative, appropriate cb5 for age. Pain: Denies pain. Pain at worst was 4 out of 10 on a pain scale. - Social history:: Smoking status: Patient denies any tobacco usage or history of. - Family history:: not pertinent. Screenin:10 Abuse screen: Denies threats or abuse. Denies injuries from another. Nutritional cb5 screening: No deficits noted. Tuberculosis screening: No symptoms or risk factors identified. 15:38 Fall Risk None identified. cb5 Assessment: 12:05 General: Appears in no apparent distress. comfortable, Behavior is calm, cooperative, cb5 appropriate for age. Pain: Denies pain. Neuro: No deficits noted. Level of Consciousness is awake, alert, obeys commands, Oriented to person, place, time, situation, Appropriate for age. Cardiovascular: Reports chest pain, Capillary refill < 3 seconds Rhythm is sinus rhythm. Respiratory: No deficits noted. Airway is patent Respiratory effort is even. GI: GI: Abdomen is Bowel sounds present X 4 quads. : No deficits noted. EENT: No deficits noted. Derm: No deficits noted. Musculoskeletal: No deficits noted. 15:38 General: patient has been discharged home, is waiting on ride home. Requested to stay cb5 in ER room until family arrives in 10 min.. Vital Signs: 12:00 BP 132 / 75; Pulse 56; Resp 17; Temp 97.7; Pulse Ox 99% ; Pain 0/10; cb5 12:05 BP 132 / 75; Pulse 56; Resp 16; Temp 97.7; Pulse Ox 99% on R/A; Weight 88.9 kg; Height cb5 5 ft. 10 in. (177.80 cm) (R); 13:00 BP 147 / 85; Pulse 65; Resp 16; Pulse Ox 98% ; Pain 0/10; cb5 12:05 Body Mass Index 28.12 (88.90 kg, 177.80 cm) cb5 ED Course: 12:00 Patient arrived in ED. sp 12:00 Arm band placed on. EKG completed in triage. Results shown to MD. cb5 12:01 Roland Christianson MD is Attending Physician. mayo 12:05 Side rails up X 1. Side rails up X2. cb5 12:08 Caroline Hernandez, RN is Primary Nurse. cb5 12:10 Triage completed. cb5 12:11 Basic Metabolic Panel Sent. cb5 12:11 CBC with Automated Diff Sent. cb5 12:11 Liver (Hepatic) Function Sent. cb5 12:11 Lipase Sent. cb5 12:11 Basic Metabolic Panel Sent. cb5 12:11 CBC with Diff Sent. cb5 12:11 LFT's Sent. cb5 12:12 Magnesium Sent. cb5 12:12 NT PRO-BNP Sent. cb5 12:12 PT-INR Sent. cb5 12:12 Troponin HS Sent. cb5 12:43 SARS-COV-2 RT PCR (Document "Date of Onset" if Symptomatic) Sent. ll1 13:04 XRAY Chest (1 view) In Process Unspecified. EDMS 13:30 CT Aorta for Dissection In Process Unspecified. EDMS Administered Medications: 12:10 Drug: Pepcid (famotidine) 20 mg Route: IVP; Site: right antecubital; cb5 12:20 Drug: NS 0.9% 1000 ml Route: IV; Rate: 125 ml/hr; Site: right antecubital; cb5 12:43 Drug: Aspirin Chewable Tablet 324 mg Route: PO; cb5 Outcome: 15:09 Discharge ordered by MD. huber 16:02 Patient left the ED. 1 Signatures: Dispatcher [employer] EDRoland Franco MD MD cha Pinkerton, Shawna sp Lewis, Lynsay, RN RN 1 Caroline Hernandez, BRII RN cb5
--- NOTE | 2021-07-10 15:10 | EDPHYS ---
Physician Documentation [facility] Name: Myron Napoles Age: 75 yrs Sex: Male : 1945 Arrival Date: 07/10/2021 Time: 12:00 Bed 15 Private MD: ED Physician Roland Christianson HPI: 07/10 13:49 This 75 yrs old Male presents to ER via EMS with complaints of upper abd and amyo lower chest pain. 13:49 The patient or guardian reports chest pain that is located primarily in the anterior mayo chest wall, bilaterally. Onset: just prior to arrival. The patient presents with abdominal pain in the upper abdomen, abdominal distention in the upper abdomen, in the lower abdomen. Onset: The symptoms/episode began/occurred just prior to arrival. The pain radiates to. Associated signs and symptoms: none. The symptoms are described as crampy. Modifying factors: The symptoms are alleviated by nothing, the symptoms are aggravated by nothing. Associated signs and symptoms: Pertinent positives: abdominal pain. 13:52 The symptoms do not radiate. The chest pain is described as aching. Duration: The [facility] patient or guardian reports a single episode, that is now resolved. Modifying factors: The symptoms are alleviated by nothing. the symptoms are aggravated by nothing. Severity of pain: At its worst the pain was mild in the emergency department the pain is unchanged. The patient has not experienced similar symptoms in the past. - Social history:: Smoking status: Patient denies any tobacco usage or history of. - Family history:: not pertinent. ROS: 13:49 Constitutional: Negative for fever, chills, and weight loss, Eyes: Negative for injury, mayo pain, redness, and discharge, ENT: Negative for injury, pain, and discharge, Neck: Negative for injury, pain, and swelling, Respiratory: Negative for shortness of breath, cough, wheezing, and pleuritic chest pain, Abdomen/GI: Negative for abdominal pain, nausea, vomiting, diarrhea, and constipation, Back: Negative for injury and pain, : Negative for injury, bleeding, discharge, and swelling, MS/Extremity: Negative for injury and deformity, Skin: Negative for injury, rash, and discoloration, Neuro: Negative for headache, weakness, numbness, tingling, and seizure, Psych: Negative for depression, anxiety, suicide ideation, homicidal ideation, and hallucinations, Allergy/Immunology: Negative for hives, rash, and allergies, Endocrine: Negative for neck swelling, polydipsia, polyuria, polyphagia, and marked weight changes, Hematologic/Lymphatic: Negative for swollen nodes, abnormal bleeding, and unusual bruising. 13:49 Cardiovascular: Positive for chest pain, of the chest and abdomen. Exam: 13:49 Constitutional: This is a well developed, well nourished patient who is awake, alert, mayo and in no acute distress. Head/Face: Normocephalic, atraumatic. Eyes: Pupils equal round and reactive to light, extra-ocular motions intact. Lids and lashes normal. Conjunctiva and sclera are non-icteric and not injected. Cornea within normal limits. Periorbital areas with no swelling, redness, or edema. ENT: Nares patent. No nasal discharge, no septal abnormalities noted. Tympanic membranes are normal and external auditory canals are clear. Oropharynx with no redness, swelling, or masses, exudates, or evidence of obstruction, uvula midline. Mucous membranes moist. Neck: Trachea midline, no thyromegaly or masses palpated, and no cervical lymphadenopathy. Supple, full range of motion without nuchal rigidity, or vertebral point tenderness. No Meningismus. Chest/axilla: Normal chest wall appearance and motion. Nontender with no deformity. No lesions are appreciated. Cardiovascular: Regular rate and rhythm with a normal S1 and S2. No gallops, murmurs, or rubs. Normal PMI, no JVD. No pulse deficits. Respiratory: Lungs have equal breath sounds bilaterally, clear to auscultation and percussion. No rales, rhonchi or wheezes noted. No increased work of breathing, no retractions or nasal flaring. Abdomen/GI: Soft, non-tender, with normal bowel sounds. No distension or tympany. No guarding or rebound. No evidence of tenderness throughout. Back: No spinal tenderness. No costovertebral tenderness. Full range of motion. Male : Normal genitalia with no discharge or lesions. Skin: Warm, dry with normal turgor. Normal color with no rashes, no lesions, and no evidence of cellulitis. MS/ Extremity: Pulses equal, no cyanosis. Neurovascular intact. Full, normal range of motion. Neuro: Awake and alert, GCS 15, oriented to person, place, time, and situation. Cranial nerves II-XII grossly intact. Motor strength 5/5 in all extremities. Sensory grossly intact. Cerebellar exam normal. Normal gait. Psych: Awake, alert, with orientation to person, place and time. Behavior, mood, and affect are within normal limits. 13:49 ECG was reviewed by the Attending Physician. Vital Signs: 12:00 BP 132 / 75; Pulse 56; Resp 17; Temp 97.7; Pulse Ox 99% ; Pain 0/10; cb5 12:05 BP 132 / 75; Pulse 56; Resp 16; Temp 97.7; Pulse Ox 99% on R/A; Weight 88.9 kg; Height cb5 5 ft. 10 in. (177.80 cm) (R); 13:00 BP 147 / 85; Pulse 65; Resp 16; Pulse Ox 98% ; Pain 0/10; cb5 12:05 Body Mass Index 28.12 (88.90 kg, 177.80 cm) cb5 MDM: 12:02 Patient medically screened. mayo 13:53 Differential diagnosis: abnormal EKG, acute myocardial infarction, coronary artery mayo disease chest wall pain, hiatal hernia, pancreatitis, pulmonary embolus, stable angina, thoracic aortic disection, unstable angina, gastritis, gastroesophageal reflux disease, non-specific abd pain, pancreatitis, Peptic Ulcer Disease, Pyelonephritis, urinary tract infection. HEART Score: History: Slightly Suspicious (0), ECG: Normal (0), Age: > or = 65 years (2), Risk Factors: 1 or 2 risk factors (1), [Hypertension] [+ Family HX] Troponin: < or = 1 x Normal Limit (0). The patient was given aspirin in the Emergency Department. The patient's deep vein thrombosis risk score was calculated as follows: Total Score: 0. This patient was found to be at low risk for a deep vein thrombosis by using the Well's assessment criteria. The patient's pulmonary embolism risk score was calculated as follows: Total Score: 0-2 points. This patient was found to be at low risk for a pulmonary embolism by using the Well's assessment criteria. LESLY Risk Score: TOTAL SCORE = 0. Data reviewed: vital signs, nurses notes, lab test result(s), EKG, radiologic studies, CT scan, plain films. Data interpreted: pvc monitor: rate is 99 beats/min, rhythm is regular, Pulse oximetry: on room air is 99 %. Test interpretation: by ED physician or midlevel provider: ECG, plain radiologic studies. 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 07/10 12:10 Order name: Basic Metabolic Panel [facility] 07/10 12:10 Order name: CBC with Diff [facility] 07/10 12:10 Order name: LFT's [facility] 07/10 12:10 Order name: Magnesium; Complete Time: 13:38 [facility] 07/10 12:10 Order name: NT PRO-BNP; Complete Time: 13:38 [facility] 07/10 12:10 Order name: PT-INR; Complete Time: 13:38 [facility] 07/10 12:10 Order name: Troponin HS; Complete Time: 13:38 [facility] 07/10 12:10 Order name: Lipase; Complete Time: 13:38 [facility] 07/10 12:10 Order name: SARS-COV-2 RT PCR (Document "Date of Onset" if Symptomatic); Complete Time: [facility] 15:08 07/10 12:10 Order name: Basic Metabolic Panel; Complete Time: 13:38 [facility] 07/10 12:10 Order name: CBC with Automated Diff; Complete Time: 13:38 [facility] 07/10 12:10 Order name: Liver (Hepatic) Function; Complete Time: 13:38 [facility] 07/10 13:39 Order name: Troponin High Sensitivity: 230pm [facility] 07/10 13:40 Order name: Troponin High Sensitivity; Complete Time: 15:08 [facility] 07/10 12:10 Order name: XRAY Chest (1 view); Complete Time: 13:38 [facility] 07/10 12:10 Order name: EKG; Complete Time: 12:11 [facility] 07/10 12:10 Order name: Cardiac monitoring; Complete Time: 12:12 [facility] 07/10 12:10 Order name: EKG - Nurse/Tech; Complete Time: 12:12 [facility] 07/10 12:10 Order name: IV Saline Lock; Complete Time: 12:12 [facility] 07/10 12:10 Order name: Labs collected and sent; Complete Time: 12:12 [facility] 07/10 12:10 Order name: O2 Per Protocol; Complete Time: 12:12 [facility] 07/10 12:10 Order name: O2 Sat Monitoring; Complete Time: 12:12 [facility] 07/10 12:10 Order name: CT Aorta for Dissection; Complete Time: 13:48 [facility] EC:49 Rate is 57 beats/min. Rhythm is regular. QRS Ada is Normal. CT interval is normal. QRS mayo interval is normal. QT interval is normal. No Q waves. T waves are Normal. No ST changes noted. Clinical impression: Normal ECG, Sinus bradycardia, and No evidence of ischemia. Interpreted by me. Reviewed by me. Administered Medications: 12:10 Drug: Pepcid (famotidine) 20 mg Route: IVP; Site: right antecubital; cb5 12:20 Drug: NS 0.9% 1000 ml Route: IV; Rate: 125 ml/hr; Site: right antecubital; cb5 12:43 Drug: Aspirin Chewable Tablet 324 mg Route: PO; cb5 Disposition Summary: 07/10/21 15:09 Discharge Ordered Location: Home mayo Problem: new mayo Symptoms: have improved mayo Condition: Stable mayo Diagnosis - Abdominal pain, unspecified mayo - Chest pain, unspecified mayo Followup: mayo - With: Private Physician - When: 2 - 3 days - Reason: Recheck today's complaints, Continuance of care, Re-evaluation by your physician Discharge Instructions: - Discharge Summary Sheet mayo - Abdominal Pain, Adult mayo - Nonspecific Chest Pain, Adult mayo - Nonspecific Chest Pain, Adult, [id number] mayo - Aspirin and Your Heart mayo Forms: - Medication Reconciliation Form mayo - Thank You Letter mayo - Antibiotic Education mayo - Prescription Opioid Use mayo Prescriptions: - Pepcid 20 mg Oral Tablet - take 1 tablet by ORAL route every 12 hours for 15 days; 30 tablet; Refills: 0, mayo Product Selection Permitted Signatures: Dispatcher [employer] Roland Nagel MD MD cha Boman, Colleen, RN RN cb5
[2021-07-10 16:08] VITALS: TEMP 97.7
[2021-07-10 16:10] VITALS: BP 147/85; O2SAT 98
== END 2021-07-10 16:02 | disposition home or self-care (01) ==
LOC: ER 11:47
DX: R07.9 Chest pain, unspecified (principal); R10.10 Upper abdominal pain, unspecified; Z20.822 Contact with and (suspected) exposure to COVID-19
CPT/HCPCS: 93005; 85025; 80048; 36415; 83735; 85610; 80076; 84484 ×2; 83690; 83880; 71275; 74175; 71045; 96374; 99284; U0003; Q9967; J7030

== ENCOUNTER 2024-06-10 00:25 | Inpatient (IN) | payer OTHER ==
[2024-06-10 02:31] LABS: Absolute Basophils 0.1 K/uL (0-0.5); Absolute Eosinophils 0.1 K/uL (0-0.5); Absolute Lymphocytes (CBC) 1.5 K/uL (0.7-4.9); Absolute Neutrophil 7.3 K/uL (1.8-8.0); Basophils % 0.5 % (0-1.3); Eosinophils % 0.9 % (0-4.4); Hematocrit 44.7 % (39.6-49.0); Lymphocytes % 15.3 % (15.3-44.8); MCH 30.1 pg (27.0-35.0); MCHC 33.6 g/dL (32.0-36.0); MCV 89.5 fL (80-100); Monocytes % 9.9 % (3.3-12.3); Neutrophils % 73.4 % (41.7-73.7); Platelets 172 thou/uL (152-406); Red Cell Distribution Width 14.9 % (12.1-15.2)
[2024-06-10 02:43] LABS: Anion Gap 10.8 mEq/L (5.0-15.0); Potassium 3.8 mEq/L (3.5-5.1)
[2024-06-10 02:54] LABS: Specific Gravity 1.013 (1.005-1.030); Sqamous Epithelial None Seen /HPF (None Seen); Urine Bacteria None Seen /HPF (<20); Urine Bilirubin NEGATIVE (Negative); Urine Blood Negative (Negative); Urine Clarity Clear (Clear); Urine Color Yellow (Yellow); Urine Culture Reflex Order NOT NEEDED; Urine Glucose NEGATIVE (Negative); Urine Ketones 1+ (Negative); Urine Micro Reflex YN NO BILL MICROSCOPIC; Urine Mucus Slight /HPF (None Seen); Urine Nitrite NEGATIVE (Negative); Urine Protein NEGATIVE (Negative); Urine RBC None Seen /HPF (None Seen); Urine Urobilinogen Normal (Normal); Urine WBC <5 /HPF (<5); Urine pH 5.5 (5.0-7.0)
--- NOTE | 2024-06-10 02:57 | EDPHYS ---
Physician Documentation [facility] Name: Myron Napoles Age: 78 yrs Sex: Male : 1945 Arrival Date: 06/10/2024 Time: 00:25 Bed 16 Private MD: ED Physician Bryn Young HPI: 06/10 01:28 This 78 yrs old Male presents to ER via Unassigned with complaints of ec2 supratherapeutic ingestion. 01:28 Patient arrives today for evaluation of of ingestion of his daily medications. Patient ec2 typically takes memantine, rosuvastatin and ramipril for his chronic medical problems. Had taken 5 additional tablets of memantine as well as 5 additional tablets of ramipril as well as 5 additional tablets rosuvastatin. Patient has a history of dementia and monitors his own medications.. Historical: - Allergies: 02:41 Erythromycin; jb4 - PMHx: 02:41 Alzheimer's disease; jb4 - PSHx: 02:41 Left hip; jb4 - Immunization history:: Adult Immunizations up to date. - Infectious Disease History:: Denies. - Social history:: Smoking status: Patient denies any tobacco usage or history of. ROS: 01:30 Constitutional: as per hpi ec2 Exam: 01:30 Constitutional: GEN: NAD Head: atraumatic Eyes: EOMI Ears: External ears are ec2 normal. CV: regular rate LUNGS: no respiratory distress ABD: non-distended SKIN: no evidence of rashes MSK: no evidence of trauma Vital Signs: 01:15 BP 116 / 84; Pulse 74; Resp 16; Pulse Ox 97% on R/A; jb4 01:52 BP 127 / 80; Pulse 84; ec2 02:00 BP 135 / 85; Pulse 82; Resp 16; Pulse Ox 97% on R/A; jb4 02:16 BP 135 / 85; Pulse 80; ec2 03:59 Temp 98.4(TE); jb4 04:00 BP 161 / 82; Pulse 93; Resp 22; Pulse Ox 96% on R/A; jb4 05:00 BP 150 / 86; Pulse 81; Resp 17; Pulse Ox 99% on R/A; dd2 06:31 BP 162 / 81; Pulse 84; Resp 17; Pulse Ox 96% on R/A; dd2 08:26 BP 113 / 76; Pulse 80; Resp 18; Pulse Ox 96% on R/A; mb9 MDM: 00:33 Medical Screening Exam initiated ec2 01:30 Data reviewed: vital signs, nurses notes. ED course: Patient arrives today for ec2 evaluation of supratherapeutic ingestion. Examination is remarkable for well-appearing nontoxic individual was hemodynamically stable. Will obtain basic lab work and monitor. Evaluating for adverse effects from patient's supratherapeutic ingestion. Will evaluate for hypotension, electrolyte disturbances, renal dysfunction, convulsions.. 01:31 ED course: Patient had taken his meds at approx 2200. ec2 02:06 ED course: EKG independently reviewed and interpreted by me, shows normal sinus rhythm, ec2 rate of 79, no acute ST segment elevations, intervals are nonactionable.. 02:16 ED course: On reassessment patient remains with appropriate vital signs.. ec2 02:52 ED course: Patient arrives family now at bedside, indicate that patient had taken his ec2 medications at approximately 12 PM, approximately 12 hours prior to arrival.. 02:56 ED course: Labs are unrevealing. Will discharge home. Return precautions given. ec2 Instructed family to keep medications out of his reach.. 03:25 ED course: At the time of discharge, patient began to have significant jerking ec2 movements which he was not having previously, will give the patient benzodiazepine as well as obtain a CT scan of his head to evaluate for any intracranial pathology. My concern is now that he is also a significant fall risk at this time as well. Family felt comfortable returning to home however I wanted to ensure us that we return to a more safe status before discharge.. 04:48 ED course: Nursing did discuss with poison control who recommended benzodiazepines for ec2 spasms otherwise no additional recs.. 05:40 ED course: CT scan of the head shows no acute intracranial normality. On reassessment ec2 patient is calm and has less frequency of jerks. Ultimately still feel patient is a significant fall risk. Will admit the patient for observation, possible assisted placement. Discussed the case with hospitalist, pending admission.. 02 00:34 Order name: Basic Metabolic Panel; Complete Time: 02:52 ec2 06/10 00:34 Order name: CBC with Diff; Complete Time: 02:52 ec2 06/10 02:38 Order name: UAM; Complete Time: 02:55 ec2 06/10 06:40 Order name: CBC with Automated Diff EDMT 06/10 06:40 Order name: CBC with Automated Diff EDMT 06/10 06:40 Order name: Comprehensive Metabolic Panel EDMT 06/10 06:40 Order name: Comprehensive Metabolic Panel EDMT 06/10 06:40 Order name: Creatine Phosphokinase EDMT 06/10 06:40 Order name: Creatine Phosphokinase [facility] 06/10 06:40 Order name: Creatine Phosphokinase [facility] 06/10 06:40 Order name: Creatine Phosphokinase [facility] 06/10 06:40 Order name: Lipid Profile EDMT 06/10 06:40 Order name: Lipid Profile [facility] 06/10 06:40 Order name: Magnesium [facility] 06/10 06:40 Order name: Magnesium [facility] 06/10 06:40 Order name: Phosphorus EDMT 06/10 06:40 Order name: Phosphorus [facility] 06/10 03:22 Order name: CT Head Brain wo Cont 2 06/10 06:40 Order name: Patient Safety Orders [facility] 06/10 06:40 Order name: Occupational Therapy Consult [facility] 06/10 06:40 Order name: Physical Therapy Consult [facility] 06/10 06:40 Order name: Social Service Consult [facility] 06/10 00:34 Order name: Cardiac monitoring; Complete Time: 02:06 ec2 06/10 00:34 Order name: EKG - Nurse/Tech; Complete Time: 02:06 ec2 06/10 00:34 Order name: IV Saline Lock; Complete Time: 02:14 ec2 06/10 00:34 Order name: Labs collected and sent; Complete Time: 02:14 ec2 06/10 00:34 Order name: O2 Per Protocol; Complete Time: 02:06 ec2 06/10 00:34 Order name: O2 Sat Monitoring; Complete Time: 02:06 ec2 Administered Medications: 02:45 Drug: diphenhydrAMINE IVP 25 mg IVP once Route: IVP; Site: right antecubital; jb4 09:05 Follow up: Response: No adverse reaction mb9 03:20 Drug: Diazepam IVP 5 mg IVP once Route: IVP; Site: left forearm; jb4 09:05 Follow up: Response: No adverse reaction mb9 03:46 Drug: Ondansetron IVP 4 mg IVP once; over 2 minutes Route: IVP; Site: left forearm; jb4 09:05 Follow up: Response: No adverse reaction mb9 04:11 Drug: Diazepam IVP 5 mg IVP once Route: IVP; Site: left forearm; jb4 09:05 Follow up: Response: No adverse reaction mb9 Disposition Summary: 06/10/24 05:59 Hospitalization Ordered Notes: Hospitalization Status: Inpatient Admission ec2 Provider: Hilary Mccoy ec2 Condition: Stable(06/10/24 05:59) ec2 Problem: an ongoing problem ec2 Symptoms: have improved ec2 Bed/Room Type: Standard ec2 Location: Telemetry/MedSurg (Inpatient)(06/10/24 08:10) bd Room Assignment: 419(06/10/24 08:10) bd Diagnosis - Restlessness ec2 - Supratherapeutic Ingestion ec2 Forms: - Medication Reconciliation Form ec2 - SBAR form ec2 - Leadership Thank You Letter ec2 Signatures: Dispatcher [employer] EDMT Jeanie Villalobos bd Mehdi Monteiro, RN RN jb4 Ce Eason RN RN kb3 Bryn Young MD MD ec2 Peri Le RN mb9 Corrections: (The following items were deleted from the chart) 02:38 02:38 Urinalysis W/Microscopic+U.LAB.BRZ ordered. [facility] EDMS 03:22 02:57 Home ec2 ec2 03:22 02:57 Stable ec2 ec2 03:22 02:57 Supratherapeutic Ingestion ec2 ec2 03:23 03:23 Head Brain Wo Cont+CT.RAD.BRZ ordered. [facility] EDMS 04:05 03:25 ED course: At the time of discharge, patient began to have significant jerking ec2 movements which she was not having previously, will give the patient benzodiazepine as well as obtain a CT scan of his head to evaluate for any intracranial pathology. My concern is now that he is also a significant fall risk at this time as well. Family felt comfortable returning to home however I wanted to ensure us that we return to a more safe status before discharge.. ec2 08:06 05:59 Telemetry/MedSurg (Inpatient) ec2 kb3 08:06 05:59 ec2 kb3 08:10 08:06 [facility] ER HOLD kb3 bd 08:10 08:06 ERHOLD- kb3 bd
--- NOTE | 2024-06-10 02:57 | ER ---
Nurse's Notes [facility] Name: Myron Napoles Age: 78 yrs Sex: Male : 1945 Arrival Date: 06/10/2024 Time: 00:25 Bed 16 Private MD: Diagnosis: Restlessness;Supratherapeutic Ingestion Presentation: 06/10 01:15 Chief complaint: Patient's son or daughter states: He took the pills around noon jb4 yesterday. (06/09/24) EMS states: Pt has Alzheimer's and accidentally took 6 10mg tablets of rosuvastatin, ramipiril, and Memantine. and 6 0.375mg hyoscyamine tablets. Coronavirus screen: At this time, the client does not indicate any symptoms associated with coronavirus-19. Ebola Screen: No symptoms or risks identified at this time. 01:15 Method Of Arrival: EMS: [facility] jb4 01:15 Initial Sepsis Screen: Does the patient meet any 2 criteria? No. Patient's initial jb4 sepsis screen is negative. Does the patient have a suspected source of infection? No. Patient's initial sepsis screen is negative. Risk Assessment: Do you want to hurt yourself or someone else? Patient reports no desire to harm self or others. Onset of symptoms was June 10, 2024. Transition of care: patient was not received from another setting of care. 01:15 Acuity: DELL 3 jb4 Historical: - Allergies: 02:41 Erythromycin; jb4 - PMHx: 02:41 Alzheimer's disease; jb4 - PSHx: 02:41 Left hip; jb4 - Immunization history:: Adult Immunizations up to date. - Infectious Disease History:: Denies. - Social history:: Smoking status: Patient denies any tobacco usage or history of. Screenin:00 [facility] ED Fall Risk Assessment (Adult) History of falling in the last 3 months, jb4 including since admission Yes- single mechanical fall (1 pt) Confusion or Disorientation Yes (5 pts) Intoxicated or Sedated No (0 pts) Impaired Gait Yes (1 pt) Mobility Assist Device Used No (0 pt) Altered Elimination No (0 pt) Score/Fall Risk Level 3 or more points = High Risk Oriented to surroundings, Maintained a safe environment. Abuse screen: Denies threats or abuse. Nutritional screening: No deficits noted. Tuberculosis screening: No symptoms or risk factors identified. Assessment: 01:15 General: Appears in no apparent distress. uncomfortable, Behavior is calm, cooperative, jb4 appropriate for age, Provider states poison control not needed due to ingestion at 12pm to 1pm. Pain: Denies pain. Neuro: Level of Consciousness is awake, alert, obeys commands, Oriented to person, place. Cardiovascular: Patient's skin is warm and dry. Respiratory: Airway is patent Respiratory effort is even, unlabored, Respiratory pattern is regular, symmetrical. Derm: Skin is intact, Skin is pink, warm \T\ dry. Musculoskeletal: Circulation, motion, and sensation intact. Range of motion: intact in all extremities. 02:42 Reassessment: Patient appears in no apparent distress at this time. No changes from jb4 previously documented assessment. Patient and/or family updated on plan of care and expected duration. Pain level reassessed. 03:10 Reassessment: Pt to be discharged home. Upon trying to discharge pt home, pt began jb4 having stronger muscle spasm. Now unable to stand on his own. Provider notified, pt moved to room 16 for further evaluation. Report given to BRII Concepcion. 03:54 Reassessment: Contacted poison control, recommended CT scan due to worsening condition. jb4 Use benzo's as needed. case # [id number] provider notified. 04:12 Reassessment: Pt to CT. jb4 07:30 General: Appears in no apparent distress. Behavior is cooperative. Pain: Denies pain. mb9 Neuro: Level of Consciousness is awake, obeys commands, confused, Oriented to none. Cardiovascular: Heart tones S1 S2 present Patient's skin is warm and dry. Respiratory: Airway is patent Respiratory effort is even, unlabored, Respiratory pattern is regular, symmetrical. GI: Abdomen is round non-distended, Abd is soft and non tender X 4 quads. : No signs and/or symptoms were reported regarding the genitourinary system. EENT: No signs and/or symptoms were reported regarding the EENT system. Derm: Skin is fragile, is thin, Skin is dry, Skin is pink, warm \T\ dry. Musculoskeletal: Range of motion: intact in all extremities. 08:30 Reassessment: Updated pts romulo Oquendo on condition and new room assignment. mb9 Vital Signs: 01:15 BP 116 / 84; Pulse 74; Resp 16; Pulse Ox 97% on R/A; jb4 01:52 BP 127 / 80; Pulse 84; ec2 02:00 BP 135 / 85; Pulse 82; Resp 16; Pulse Ox 97% on R/A; jb4 02:16 BP 135 / 85; Pulse 80; ec2 03:59 Temp 98.4(TE); jb4 04:00 BP 161 / 82; Pulse 93; Resp 22; Pulse Ox 96% on R/A; jb4 05:00 BP 150 / 86; Pulse 81; Resp 17; Pulse Ox 99% on R/A; dd2 06:31 BP 162 / 81; Pulse 84; Resp 17; Pulse Ox 96% on R/A; dd2 08:26 BP 113 / 76; Pulse 80; Resp 18; Pulse Ox 96% on R/A; mb9 ED Course: 00:33 Patient arrived in ED. ec2 00:33 Bryn Young MD is Attending Physician. ec2 02:00 Inserted saline lock: 20 gauge in right antecubital area, using aseptic technique. jb4 02:00 Patient has correct armband on for positive identification. Bed in low position. Call jb4 light in reach. Side rails up X 1. Provided Education on: plan of care to family.. Client placed on continuous cardiac and pulse oximetry monitoring. NIBP monitoring applied. residential monitor on. Pulse ox on. 02:26 Basic Metabolic Panel Sent. jb4 02:26 CBC with Diff Sent. jb4 02:38 Mehdi Monteiro, RN is Primary Nurse. jb4 02:41 Triage completed. jb4 02:41 Arm band placed on right wrist. jb4 04:20 CT Head Brain wo Cont In Process Unspecified. EDMS 05:58 Hilary Mccoy is Hospitalizing Provider. ec2 08:38 No provider procedures requiring assistance completed. mb9 08:39 Patient admitted, IV remains in place. mb9 09:06 Assisted with urinal. Cleaned of incontinence. Linen changed. mb9 Administered Medications: 02:45 Drug: diphenhydrAMINE IVP 25 mg IVP once Route: IVP; Site: right antecubital; jb4 09:05 Follow up: Response: No adverse reaction mb9 03:20 Drug: Diazepam IVP 5 mg IVP once Route: IVP; Site: left forearm; jb4 09:05 Follow up: Response: No adverse reaction mb9 03:46 Drug: Ondansetron IVP 4 mg IVP once; over 2 minutes Route: IVP; Site: left forearm; jb4 09:05 Follow up: Response: No adverse reaction mb9 04:11 Drug: Diazepam IVP 5 mg IVP once Route: IVP; Site: left forearm; jb4 09:05 Follow up: Response: No adverse reaction mb9 Medication: 08:38 VIS not applicable for this client. mb9 Outcome: 02:57 Discharge ordered by . ec2 05:59 Decision to Hospitalize by Provider. ec2 09:06 Admitted to Tele accompanied by tech, via stretcher, 9 09:06 Condition: stable 09:06 Instructed on the need for admit, 09:08 Patient left the ED. mb9 Signatures: Dispatcher [employer] Mehdi Wood RN RN jb4 Peri Le RN RN mb9 Bryn Young MD MD ec2 TEDDY PHILLIP RN RN dd2 Corrections: (The following items were deleted from the chart) 03:48 01:15 General: Appears in no apparent distress. uncomfortable, Behavior is calm, jb4 cooperative, appropriate for age, jb4 04:01 03:54 Reassessment: Contacted poison control, recommended CT scan due to worsening jb4 condition. Use benzo's as needed. jb4 04:03 03:54 Reassessment: Contacted poison control, recommended CT scan due to worsening jb4 condition. Use benzo's as needed. case # [id number] provider notified. jb4
[2024-06-10] MEDS ORDERED: DIPHENHYDRAMINE 50 MG/ML VIAL ONE (03:01)
[2024-06-10] MEDS ORDERED: DIAZEPAM 10 MG/2 ML INJ SYRINGE ONE ×2 (03:34→04:05)
[2024-06-10] MEDS ORDERED: ONDANSETRON 4 MG/2 ML VIAL ONE (03:36)
--- NOTE | 2024-06-10 05:44 | RAD REPORT ---
EXAM DESCRIPTION: Head Brain Wo Cont RadLex: CT HEAD WITHOUT IV CONTRAST CLINICAL HISTORY: 78 years Male; worsened altered mental status, frequent jerk; Bed Name: 25 TECHNIQUE: Noncontrast CT head. All CT scans at this facility use dose modulation, iterative reconstruction, and/or weight based dosi ng when appropriate to reduce radiation dose to as low as reasonably achievable. COMPARISON: None. FINDINGS: Parenchyma: No acute hemorrhage, large territorial infarction, or mass effect. Scattered hypodensitie s in the white matter, likely chronic small vessel ischemic changes. Mild global volume loss. Ventricles and extra-axial spaces: Appropriate for age and degree of volume loss. Visualized paranasal sinuses: Clear. Mastoid air cells: Clear. Bones: No acute focal abnormality. Additional comment: None. IMPRESSION: 1. No acute intracranial findings. 2. Chronic microvascular ischemic changes. Electronically signed by: Srikanth Bennett MD 06/10/2024 05:[address] [facility] Due to temporary technical issues with the PACS/MiTú reporting system, reports are being rishabh d by the in-house radiologist without review as a courtesy to ensure prompt reporting the interpreting radiologist is fully responsible for the content of the report. Transcribed Date/Time: 06/10/2024 5:43 AM
--- NOTE | 2024-06-10 06:23 | P.HP ---
Certification for Inpatient Patient admitted to: Inpatient With expected LOS: >2 Midnights Patient will require the following post-hospital care: Fdc Practitioner: I am a practitioner with admitting privileges, knowledge of patient current condition, hospital course, and medical plan of care. Services: Services provided to patient in accordance with Admission requirements found in Title 42 Section 412.3 of the Code of Federal Regulations Patient History Date of Service: 06/10/24 History of Present Illness: Mr. Napoles is a 78 yo friendly, healthy appearing, well nourished gentleman unknown to me who is confused, demented, and admitted from the ED post taking 5 times his regular dose of memantine, ramipril, and rosuvastatin. Patient has a history of dementia and monitors his own medications. He lives with his Son and they were comfortable taking him home but the patient began having jerking muscular movements and posion control suggested benzodiazepines may help control side effects of inadvertant ingestion. Mr. Napoles has been more difficult to manage as his dementia has worsened and we will consult case management for suggestions for discharge planning. Allergies Erythromycin Allergy (Uncoded 07/27/17 12:50) Unknown Home medications list reviewed: Yes - Past Medical/Surgical History Has patient received pneumonia vaccine in the past: No -: HLD -: HTN -: Dementia -: Left hip Psychosocial/ Personal History: Lives with his Son - Social History Smoking Status: Unknown if ever smoked Alcohol use: No CD- Drugs: No Caffeine use: Yes Place of Residence: Home Review of Systems is unable to be obtained Physical Examination - Physical Exam General: Alert, Demented HEENT: Atraumatic, Normocephalic Neck: Supple Respiratory: Normal air movement Cardiovascular: Normal pulses, Regular rate/rhythm Capillary refill: <2 Seconds Gastrointestinal: Soft and benign Musculoskeletal: Other (mild stiff, jerky movements of upper extremities) Integumentary: No rashes, Other (right middle finger with edema, ecchymosis) Neurological: Normal speech, Abnormal tone, Abnormal affect, Dementia Lymphatics: No axilla or inguinal lymphadenopathy External genitalia: Deferred Rectal: Deferred - Studies Laboratory Data (last 24 hrs) 06/10/24 06/10/24 02:12 02:12 WBC 9.90 Hgb 15.0 Hct 44.7 Plt Count 172 Sodium 131 L Potassium 3.8 BUN 17 Creatinine 1.34 H Glucose 92 Assessment and Plan - Plan Dementia with accidental toxic ingestion Mild hydration Skin protection measures Monitor LFTs, electrolytes, CPK CoQ10 po daily Librium po q 6h air mattress PT, OT, CM consult x-ray right hand monitor BP Hold statin, willis, and memantine avoid hepatotoxic meds VTE prophylaxis Plan to discharge in: 24 Hours - Advance Directives Does patient have a Living Will: No Does patient have a Durable POA for Healthcare: No
[2024-06-10] MEDS: NA CHLORIDE 0.9% 1,000 ML IV SCH (07:00)
[2024-06-10] MEDS ORDERED: NA CHLORIDE 0.9% 1,000 ML ONE (08:31)
[2024-06-10] MEDS: COENZYME Q10- 200 MG CAP PO SCH (08:48)
[2024-06-10 10:37] VITALS: BMI 39.4
[2024-06-10] MEDS: chlordiazePOXIDE HCl 5 MG CAP PO SCH (12:29)
--- NOTE | 2024-06-10 15:43 | RAD REPORT ---
EXAM: Hand Right 3 View HISTORY: right third finger swollen/bruised COMPARISON: 01/09/2022 FINDINGS: Bones: Nondisplaced avulsion fracture along the volar plate involving the third middle phalanx. Of th e fracture does not clearly extend to the articular surface, the alignment would suggest extension to the PIP joint. Alignment:No significant malalignment. Degenerative changes:None significant. Other: n/a IMPRESSION: Nondisplaced fracture at the third middle phalanx.
[2024-06-10] MEDS: HALOPERIDOL LACT 5 MG/ML INJ IV ONE (21:51)
[2024-06-10] MEDS: ONDANSETRON 4 MG/2 ML VIAL IV PRN (21:56)
[2024-06-10 22:31] VITALS: O2SAT 94
[2024-06-10] MEDS: LORazepam 2 MG/ML VIAL IV ONE (22:34)
[2024-06-11 06:57] LABS: Absolute Lymphocytes (CBC) 0.6 K/uL (0.7-4.9); Absolute Monocytes 1.1 K/uL (0.1-1.3); Absolute Neutrophil 9.4 K/uL (1.8-8.0); Basophils % 0.1 % (0-1.3); Hematocrit 48.9 % (39.6-49.0); Lymphocytes % 5.8 % (15.3-44.8); MCH 29.3 pg (27.0-35.0); MCHC 32.8 g/dL (32.0-36.0); MCV 89.1 fL (80-100); MPV 8.4 fL (7.6-11.3); Monocytes % 9.6 % (3.3-12.3); Neutrophils % 84.5 % (41.7-73.7); Platelets 201 thou/uL (152-406); RBC Red Blood Cell Count 5.48 M/uL (4.33-5.43); Red Cell Distribution Width 14.9 % (12.1-15.2)
[2024-06-11 07:09] LABS: Albumin 3.1 g/dL (3.4-5.0); Albumin/Globulin Ratio 0.8 (1.1-1.8); Anion Gap 10.6 mEq/L (5.0-15.0); Bilirubin Total 0.8 mg/dL (0.2-1.0); Magnesium 2.3 mg/dL (1.6-2.4); Phosphorus 3.1 mg/dL (2.5-4.9); Potassium 3.6 mEq/L (3.5-5.1); Protein, Total 7.1 g/dL (6.4-8.2)
[2024-06-11] MEDS: POTASSIUM CL SA 10 MEQ TAB PO ONE ×2 (09:00→20:42)
--- NOTE | 2024-06-11 11:48 | EKG ---
Test Date: 2024-06-10 Test Time: 02:04:48 Finish Mill Operator: WESLY MEASUREMENT RESULTS: Intervals: Rate: 79 RI: 186 QRSD: 96 QT: 390 QTc: 447 [place]: P: 52 RI: 186 QRS: 19 T: 19 INTERPRETIVE STATEMENTS: Normal sinus rhythm Normal ECG Compared to ECG 07/10/2021 10:53:50 Sinus bradycardia no longer present Electronically Signed On 06-11-24 11:48:11 NUCLEAR MEDICINE TECHNICIAN by Neri Burnette
[2024-06-11] MEDS: NA CHLORIDE 0.9% 250 ML IV ONE (14:06)
--- NOTE | 2024-06-11 14:14 | P.PN ---
Date of Service: 06/11/24 Review of Systems is unable to be obtained, needed increased sedation overnight and is sleeping sounding during rounds Physical Examination - Physical Exam General: sleepin, Demented HEENT: Atraumatic, Normocephalic Neck: Supple Respiratory: Normal air movement Cardiovascular: Normal pulses, Regular rate/rhythm Capillary refill: <2 Seconds Gastrointestinal: Soft and benign Musculoskeletal: Other Integumentary: No rashes, - right middle finger with edema, ecchymosis - continues Neurological: Normal speech, Abnormal tone, Abnormal affect, Dementia Lymphatics: No axilla or inguinal lymphadenopathy External genitalia: Deferred Rectal: Deferred Assessment and Plan Dementia with accidental toxic ingestion Mild hydration Skin protection measures Monitor LFTs, electrolytes, CPK CoQ10 po daily Librium po q 6h air mattress PT, OT, CM consult x-ray right hand Monitor BP Hold statin, willis, and memantine avoid hepatotoxic meds MARI creatinine from 1.34 to 1.84 and CPK CPK elevated likely second to dehydration, ingestion 250ml NS bolus avoid nephrotoxins VTE prophylaxis Plan to discharge in: 24-48 Hours - Advance Directives Does patient have a Living Will: No Does patient have a Durable POA for Healthcare: No
[2024-06-11] MEDS: NA CHLORIDE 0.9% 1,000 ML IV SCH (15:00)
[2024-06-11] MEDS: BENZONATATE 100 MG CAP PO SCH (21:47)
[2024-06-11] MEDS: GUAIFENESIN 600 MG SA TAB PO SCH (21:47)
[2024-06-12 07:08] LABS: Absolute Eosinophils 0.1 K/uL (0-0.5); Absolute Lymphocytes (CBC) 0.9 K/uL (0.7-4.9); Absolute Monocytes 1.3 K/uL (0.1-1.3); Absolute Neutrophil 6.3 K/uL (1.8-8.0); Basophils % 0.1 % (0-1.3); Eosinophils % 0.8 % (0-4.4); Hematocrit 44.4 % (39.6-49.0); Hemoglobin 14.8 g/dL (13.6-17.9); Lymphocytes % 10.4 % (15.3-44.8); MCH 30.1 pg (27.0-35.0); MCHC 33.4 g/dL (32.0-36.0); MCV 90.1 fL (80-100); MPV 8.4 fL (7.6-11.3); Neutrophils % 73.7 % (41.7-73.7); Platelets 166 thou/uL (152-406); RBC Red Blood Cell Count 4.92 M/uL (4.33-5.43); Red Cell Distribution Width 15.2 % (12.1-15.2)
[2024-06-12 08:06] LABS: Albumin 2.7 g/dL (3.4-5.0); Albumin/Globulin Ratio 0.8 (1.1-1.8); Anion Gap 9.9 mEq/L (5.0-15.0); Bilirubin Total 0.8 mg/dL (0.2-1.0); Globulin 3.5 g/dL (2.3-3.5); Protein, Total 6.2 g/dL (6.4-8.2)
[2024-06-12 08:09] LABS: Magnesium 2.3 mg/dL (1.6-2.4); Potassium 3.9 mEq/L (3.5-5.1)
--- NOTE | 2024-06-12 10:32 | P.PN ---
Date of Service: 06/12/24 Review of Systems sedatives/benzos stopped yesterday, mentation overall improved a little. He is still very confused. He can be redirected today but not for long. He remains oriented to person. He is a fall risk as he was up off his bed-check x 4 while I was rounding on 4th floor. He continues to remove the splint applied to his right middle finger (medial phalanx) fracture. I rosa taped it with coban. Ecchymosis improved. Physical Examination - Physical Exam General: Demented HEENT: Atraumatic, Normocephalic Neck: Supple Respiratory: Normal air movement Cardiovascular: Normal pulses, Regular rate/rhythm Capillary refill: <2 Seconds Gastrointestinal: Soft and benign Musculoskeletal: Other Integumentary: No rashes, - right middle finger with edema, ecchymosis - improving, splint removed/replaced Neurological: Normal speech, Dementia Lymphatics: No axilla or inguinal lymphadenopathy External genitalia: Deferred Rectal: Deferred Assessment and Plan Dementia with accidental toxic ingestion Mild hydration Skin protection measures Monitor LFTs, electrolytes, CPK CoQ10 po daily Librium po q 6h - weaned and stopped air mattress PT, OT, CM consult - continue x-ray right hand - right middle finger, middle phalanx fx, splint (pt removes frequently) Monitor BP Hold statin, willis, and memantine avoid hepatotoxic meds Metoprolol MARI creatinine from 1.34 to 1.84 - resolved to 1.03 today (06/12/24) CPK elevated likely second to dehydration, ingestion - increased minimally today to 500s 250ml NS bolus given 06/11/24, encouraged po fluids today 06/12/24 avoid nephrotoxins I spoke with Mr. Napoles's PCP, Ken Shah, today regarding his baseline. He is far from baseline mental status still today according to our conversation. We will coordinate with the family for Mr. 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
[2024-06-12] MEDS ORDERED: BENZONATATE 100 MG CAP PO SCH (21:15)
[2024-06-13 07:07] LABS: Absolute Eosinophils 0.1 K/uL (0-0.5); Absolute Lymphocytes (CBC) 1.1 K/uL (0.7-4.9); Absolute Monocytes 1.1 K/uL (0.1-1.3); Absolute Neutrophil 3.7 K/uL (1.8-8.0); Basophils % 0.3 % (0-1.3); Eosinophils % 1.9 % (0-4.4); Hematocrit 41.3 % (39.6-49.0); Hemoglobin 13.8 g/dL (13.6-17.9); Lymphocytes % 17.9 % (15.3-44.8); MCHC 33.4 g/dL (32.0-36.0); MCV 89.8 fL (80-100); MPV 8.3 fL (7.6-11.3); Monocytes % 17.9 % (3.3-12.3); Platelets 150 thou/uL (152-406)
[2024-06-13 07:20] LABS: Albumin 2.4 g/dL (3.4-5.0); Albumin/Globulin Ratio 0.7 (1.1-1.8); Anion Gap 9.5 mEq/L (5.0-15.0); Bilirubin Total 0.7 mg/dL (0.2-1.0); Globulin 3.4 g/dL (2.3-3.5); Magnesium 2.1 mg/dL (1.6-2.4); Potassium 3.5 mEq/L (3.5-5.1); Protein, Total 5.8 g/dL (6.4-8.2)
[2024-06-13] MEDS: POTASSIUM 25 MEQ EFFERV TAB PO ONE (08:32)
--- NOTE | 2024-06-13 11:04 | P.DS ---
Admission Date: 06/10/24 Discharge Date: 06/13/24 Disposition: ROUTINE DISCHARGE Discharge Condition: GOOD Reason for Admission: Toxic ingestion, confusion Brief History of Present Illness: Mr. Napoles is a 78 yo friendly, healthy appearing, well nourished gentleman unknown to me who is confused, demented, and admitted from the ED post taking 5 times his regular dose of memantine, ramipril, and rosuvastatin. Patient has a history of dementia and monitors his own medications. He lives with his Son and they were comfortable taking him home but the patient began having jerking muscular movements and posion control suggested benzodiazepines may help control side effects of inadvertant ingestion. Mr. Napoles has been more difficult to manage as his dementia has worsened and we will consult case management for suggestions for discharge planning. Hospital Course: Mr. Napoles's mental status has improved but he remains confused. With gentle hydration and withholding ramipril and atorvastatin, his acute kidney injury has resolved. 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 We will continue to withhold his statin until follow-up with his PCP, Bandar Shah. This pleasant gentleman will be discharged home with family and will follow-up with his PCP next week. Vital Signs/Physical Exam: Temp Pulse Resp BP Pulse Ox 98.3 F 77 16 151/78 H 94 06/13/24 08:00 06/13/24 08:00 06/13/24 08:00 06/13/24 08:00 06/13/24 08:00 General: Alert, In no apparent distress, Oriented x1, Demented, Confused HEENT: Atraumatic, Normocephalic Neck: Supple Respiratory: Normal air movement Cardiovascular: Normal pulses, Regular rate/rhythm, Normal S1 S2 Capillary refill: <2 Seconds Gastrointestinal: Soft and benign Musculoskeletal: No clubbing, No swelling, No contractures, Other (third middle phalanx fx, does not seem to bother pt, ecchymosis resolving) Integumentary: No rashes Neurological: Normal speech, Normal tone, Normal affect Lymphatics: No axilla or inguinal lymphadenopathy External genitalia: Deferred Rectal: Deferred Laboratory Data at Discharge: WBC 6.00 thou/uL (4.3-10.9) 06/13/24 06:27 Hgb 13.8 g/dL (13.6-17.9) 06/13/24 06:27 Hct 41.3 % (39.6-49.0) 06/13/24 06:27 Plt Count 150 thou/uL (152-406) L 06/13/24 06:27 Sodium 138 mEq/L (136-145) 06/13/24 06:27 Potassium 3.5 mEq/L (3.5-5.1) 06/13/24 06:27 BUN 18 mg/dL (7-18) 06/13/24 06:27 Creatinine 0.92 mg/dL (0.70-1.30) 06/13/24 06:27 Glucose 93 mg/dL (74-106) 06/13/24 06:27 Phosphorus 3.1 mg/dL (2.5-4.9) 06/11/24 06:12 Magnesium 2.1 mg/dL (1.6-2.4) 06/13/24 06:27 Total Bilirubin 0.7 mg/dL (0.2-1.0) 06/13/24 06:27 AST 29 U/L (15-37) 06/13/24 06:27 ALT 24 U/L (16-61) 06/13/24 06:27 Alkaline Phosphatase 59 U/L (45-117) 06/13/24 06:27 Triglycerides 62 mg/dL (<150) 06/11/24 06:12 Cholesterol 125 mg/dL (<200) 06/11/24 06:12 HDL Cholesterol 61 mg/dL (40-60) H 06/11/24 06:12 Cholesterol/HDL Ratio 2.05 06/11/24 06:12 Home Medications: Hyoscyamine Sulfate [Hyoscyamine Sulfate ER] 0.375 mg PO BID 06/10/24 Ramipril [Altace] 1 tab PO DAILY 06/10/24 Rosuvastatin [Crestor] 10 mg PO DAILY 06/10/24 tadalafiL [Tadalafil] 5 mg PO DAILY 06/10/24 Ubidecarenone [Coenzyme Q10*] 200 mg PO DAILY #1 bottle 06/13/24 New Medications: Ubidecarenone [Coenzyme Q10*] 200 mg PO DAILY #1 bottle Diet: Regular Activity: Fall precautions Followup: BISMARK SHAH JR [Primary Care Provider] -
[2024-06-13 12:20] VITALS: BP 144/81; TEMP 98
== END 2024-06-13 12:37 | disposition home or self-care (01) | DRG 918 ==
LOC: ER 00:25 → ERHOLD 06:31 → 4TH 08:41
PROVIDERS: ADMIT Internal Medicine; ATTEND Internal Medicine
DX: T43.8X1A Poisoning by other psychotropic drugs, accidental (unintentional), initial encounter (principal); N17.9 Acute kidney failure, unspecified; I10 Essential (primary) hypertension; E78.5 Hyperlipidemia, unspecified; M60.9 Myositis, unspecified; E86.0 Dehydration; G30.9 Alzheimer's disease, unspecified; F02.80 Dementia in other diseases classified elsewhere, unspecified severity, without behavioral disturbance, psychotic disturbance, mood disturbance, and anxiety; T46.4X1A Poisoning by angiotensin-converting-enzyme inhibitors, accidental (unintentional), initial encounter; T46.6X1A Poisoning by antihyperlipidemic and antiarteriosclerotic drugs, accidental (unintentional), initial encounter; R58 Hemorrhage, not elsewhere classified; Z88.1 Allergy status to other antibiotic agents
CPT/HCPCS: 36415; 70450; 80048; 80053; 80061; 81001; 82550; 83735; 84100; 85025; 93005; 97116; 97161; 97165; 97530; 99285; J1200; J1630; J2405; J3360; J7030